=== PATIENT | male | born 1960 | race Caucasian/White ===

== ENCOUNTER → 2019-09-08 11:00 | Outpatient (BNVA) | payer MEDICAID, SELFPAY | PROVIDERS: Visit Provider Nurse Practitioner | DX: F25.1 Schizoaffective disorder, depressive type (principal); F41.1 Generalized anxiety disorder; F17.210 Nicotine dependence, cigarettes, uncomplicated | CPT/HCPCS: 99213 ==

== ENCOUNTER → 2019-12-01 08:20 | Outpatient (BNVA) | payer MEDICAID, SELFPAY | PROVIDERS: Family Provider Nurse Practitioner; PCP Nurse Practitioner Family; Visit Provider Nurse Practitioner | DX: F41.1 Generalized anxiety disorder (principal); F25.1 Schizoaffective disorder, depressive type; F17.210 Nicotine dependence, cigarettes, uncomplicated | CPT/HCPCS: 99213 ==

== ENCOUNTER → 2020-03-07 07:38 | Outpatient (BNVA) | payer MEDICAID, SELFPAY | PROVIDERS: Family Provider Nurse Practitioner; PCP Nurse Practitioner Family; Visit Provider Nurse Practitioner | DX: F41.1 Generalized anxiety disorder (principal); F25.1 Schizoaffective disorder, depressive type; F17.210 Nicotine dependence, cigarettes, uncomplicated | CPT/HCPCS: 99214 ==

== ENCOUNTER → 2020-06-01 07:27 | Outpatient (BNVA) | payer MEDICAID, SELFPAY | PROVIDERS: Family Provider Nurse Practitioner; PCP Nurse Practitioner Family; Visit Provider Nurse Practitioner | DX: F41.1 Generalized anxiety disorder (principal); F25.1 Schizoaffective disorder, depressive type; F17.210 Nicotine dependence, cigarettes, uncomplicated | CPT/HCPCS: 99214 ==

== ENCOUNTER → 2020-08-17 07:29 | Outpatient (BNVA) | payer MEDICAID, SELFPAY | PROVIDERS: Family Provider Nurse Practitioner; PCP Nurse Practitioner Family; Visit Provider Nurse Practitioner | DX: F41.1 Generalized anxiety disorder (principal); F25.1 Schizoaffective disorder, depressive type; F17.210 Nicotine dependence, cigarettes, uncomplicated | CPT/HCPCS: 99213 ==

== ENCOUNTER → 2020-11-11 07:33 | Outpatient (BNVA) | payer MEDICAID, SELFPAY | PROVIDERS: Family Provider Nurse Practitioner; PCP Nurse Practitioner Family; Visit Provider Nurse Practitioner | DX: F41.1 Generalized anxiety disorder (principal); F25.1 Schizoaffective disorder, depressive type; F17.210 Nicotine dependence, cigarettes, uncomplicated | CPT/HCPCS: 99214 ==

== ENCOUNTER → 2021-01-06 10:33 | Outpatient (BNVA) | payer MEDICAID, SELFPAY | PROVIDERS: Family Provider Nurse Practitioner; PCP Nurse Practitioner Family; Visit Provider Nurse Practitioner Family | DX: R63.4 Abnormal weight loss (principal); Z79.899 Other long term (current) drug therapy; E55.9 Vitamin D deficiency, unspecified; Z12.5 Encounter for screening for malignant neoplasm of prostate; I10 Essential (primary) hypertension; Z13.6 Encounter for screening for cardiovascular disorders; J44.9 Chronic obstructive pulmonary disease, unspecified | CPT/HCPCS: 71046; 80053; 80061; 82306; 83036; 83615; 84443; 85025; 85651; 86140; G0103 ==

== ENCOUNTER → 2021-01-12 14:53 | Outpatient (BNVA) | payer MEDICAID, SELFPAY | PROVIDERS: Family Provider Nurse Practitioner; PCP Nurse Practitioner Family; Visit Provider Nurse Practitioner Family | DX: R63.4 Abnormal weight loss (principal) | CPT/HCPCS: 82270 ==

== ENCOUNTER 2021-01-17 15:49 | Outpatient (CLI) | payer MEDICAID, SELFPAY | END 2021-01-17 15:50 | disposition home or self-care (01) | LOC: RADWPI 12-27 08:29 | PROVIDERS: PCP Nurse Practitioner; Visit Provider Family Medicine | DX: J44.9 Chronic obstructive pulmonary disease, unspecified (principal); Z20.822 Contact with and (suspected) exposure to COVID-19 | CPT/HCPCS: 87635 ==

== ENCOUNTER 2021-01-23 13:00 | Outpatient (CLI) | payer MEDICAID, SELFPAY ==
--- NOTE | 2021-01-23 13:10 | XR_ITS ---
WS: [id number] DEXA (DUAL ENERGY X-RAY ABSORPTIOMETRY) Bone mineral density was performed using a [employer] machine. HISTORY: S72.009A - Fracture of unspecified part of neck of the hip. COMPARISON: None available. Lumbar spine BMD (L1-L4): 0.8 T score: -3.3 Z score: -1.8 Total hip BMD: Left: 0.561. T score: -3.7 Z score: -2.6 Right: 0.489. T score: -4.3 Z score: -3.1 10 year probability of a major osteoporotic fracture is 44%. XR/XR DEXA axial skeleton* 20791 IMPRESSION: OSTEOPOROSIS. Patient at significant risk for fracture.
--- NOTE | 2021-01-23 14:00 | CT_ITS ---
WS: [id number] CT CHEST WITHOUT INTRAVENOUS CONTRAST HISTORY: R63.4 - Abnormal weight loss TECHNIQUE: Contiguous 5 mm axial imaging performed on the thorax. Coronal and sagittal reformats are submitted. All CT scans at [facility] use at least one of these dose optimization techniq ues: automated exposure control; mA and/or kV adjustment per patient size (includes targeted exams wh ere dose is matched to clinical indication); or iterative reconstruction. CONTRAST: None DLP: 426.76 mGycm COMPARISON: 08/23/2017 Lungs and central airway: Marked pulmonary hyperexpansion with changes of emphysema. Interval LEFT vo lume loss in shift of the mediastinal structures to the LEFT. Curvilinear area of increased density. Rounded atelectasis is noted involving a portion of the LEFT lower lobe. There is additional area of atelectasis and pleural thickening at the lingula. Small amount of increased density along the depend ent portions of the proximal mainstem bronchi is probably related to secretions. Similar findings as compared to the prior study. Pleura: Normal. No pleural effusion. Heart and pericardium: Normal size heart with no pericardial effusion. Mediastinum and shailesh: No adenopathy identified on this unenhanced study. There are some small benign- appearing lymph nodes in the anterior mediastinal fat which were similar to the prior study. Vessels: Normal size aortic and pulmonary artery. No coronary artery calcifications. Chest wall and lower neck: No soft tissue masses. Upper abdomen: LEFT kidney is not identified. May be surgically removed or congenital. Osseous structures: Very slight anterior wedging of T3. No change. CT/CT chest wo con [id number] IMPRESSION: 1. Severe chronic emphysema. 2. Volume loss in the LEFT thorax with rounded atelectasis in the LEFT lower l obe and subsegmental atelectasis at the lingula. 3. Endobronchial secretions in the proximal mainstem bronchi. 4. Absent LEFT kidney.
--- NOTE | 2021-01-23 14:40 | PFTS_ITS ---
Date of Study:01/23/21 Date of Dictation: 01/31/21 MECHANICS: Post bronchodilator Forced vital capacity (FVC) is reduced 43% . Post bronchodilator Forced expiratory volume in one second (FEV1) is very severely reduced 26% . FEV1/FVC is reduced. There is significant response to bronchodilators . FLOW VOLUME LOOP: severe sloping of expiratory limb suggestive of severe airway obstruction LUNG VOLUMES: Not measured DIFFUSING CAPACITY FOR CARBON MONOXIDE: Not measured . INTERPRETATION: The Spirometry consistent with severe obstructive ventilatory defect with significant bronchodialator response. Clinical correlation recommended. MTDD
== END 2021-01-23 13:01 | disposition home or self-care (01) ==
PROVIDERS: PCP Nurse Practitioner Family; Visit Provider Family Medicine
DX: R63.4 Abnormal weight loss (principal); J44.9 Chronic obstructive pulmonary disease, unspecified; S72.009A Fracture of unspecified part of neck of unspecified femur, initial encounter for closed fracture; Z90.5 Acquired absence of kidney; M81.0 Age-related osteoporosis without current pathological fracture
CPT/HCPCS: 71250; 77080; 94060

== ENCOUNTER → 2021-01-27 07:27 | Outpatient (BNVA) | payer MEDICAID, SELFPAY | PROVIDERS: PCP Nurse Practitioner Family; Visit Provider Nurse Practitioner | DX: F41.1 Generalized anxiety disorder (principal); F25.1 Schizoaffective disorder, depressive type; F17.210 Nicotine dependence, cigarettes, uncomplicated | CPT/HCPCS: 99214 ==

== ENCOUNTER → 2021-02-03 15:32 | Outpatient (BNVA) | payer MEDICAID, SELFPAY | PROVIDERS: PCP Nurse Practitioner Family; Visit Provider Internal Medicine Pulmonary Disease | DX: Z20.822 Contact with and (suspected) exposure to COVID-19 (principal) | CPT/HCPCS: 87635 ==

== ENCOUNTER 2021-02-08 14:01 | Outpatient (CLI) | payer MEDICAID, SELFPAY ==
--- NOTE | 2021-02-08 14:48 | PFTS_ITS ---
Date of Study:02/08/21 Date of Dictation: MECHANICS: Forced vital capacity (FVC) is reduced. Forced expiratory volume in one second (FEV1) is reduced. FEV1/FVC is reduced. FLOW VOLUME LOOP: Reduced flow at all lung volumes with significant scooping. LUNG VOLUMES: Total lung capacity (TLC) is increased. Residual volume (RV) is increased. DIFFUSING CAPACITY FOR CARBON MONOXIDE: Moderately reduced. INTERPRETATION: The pulmonary function tests are consistent with severe airflow obstruction. There is a significant postbronchodilator response. Lung volumes are consistent with hyperinflation and air trapping. Gas exchange (DLCO) is moderately reduced. MTDD
== END 2021-02-08 14:02 | disposition home or self-care (01) ==
LOC: RT 14:03
PROVIDERS: PCP Family Medicine; Visit Provider Internal Medicine Pulmonary Disease
DX: J44.9 Chronic obstructive pulmonary disease, unspecified (principal)
CPT/HCPCS: 94060; 94618; 94726; 94729

== ENCOUNTER → 2021-04-21 09:35 | Outpatient (BNVA) | payer MEDICAID, SELFPAY | PROVIDERS: PCP Nurse Practitioner Family; Visit Provider Nurse Practitioner | DX: F41.1 Generalized anxiety disorder (principal); F25.1 Schizoaffective disorder, depressive type; F17.210 Nicotine dependence, cigarettes, uncomplicated | CPT/HCPCS: 99214 ==

== ENCOUNTER 2021-06-07 10:00 | Outpatient (CLI) | payer MEDICAID, SELFPAY ==
--- NOTE | 2021-06-07 10:00 | XR_ITS ---
NOTE: Report was unsigned for reason: Order was edited. Original Signature date and time was: 06/07/21 @ 1039 WS: [id number] BILATERAL HIPs: 2 VIEW(S) TECHNIQUE: AP and lateral. HISTORY: M54.9 - Dorsalgia, unspecified COMPARISON: 05/18/2013 Mild bilateral hip joint arthritis. Mild diffuse osteopenia. No fractures or dislocation. Irregularity involving the surfaces of the femoral heads from arthritis and loss of cartilage. SI joints are mildly narrowed. No erosions. [facility] XR/XR hip BI 2V wo/w pel [id number] IMPRESSION: 1. Mild bilateral hip joint arthritis. 2. Osteopenia. 3. No fracture.
--- NOTE | 2021-06-07 10:00 | XR_ITS ---
WS: [id number] Exam: XR sacrum coccyx min 2V [id number] Date/Time of Exam: 06/07/2021 10:00 AM Reason For Exam: M54.9 - Dorsalgia, unspecified No fracture or dislocation identified. There is partial fusion of the bilateral SI joints. The coccyx is intact. XR/XR sacrum coccyx min 2V [id number] IMPRESSION: 1. No fracture or bone destruction. 2. Partial fusion of the bilateral SI joints with degenerative change
--- NOTE | 2021-06-07 10:30 | XR_ITS ---
WS: [id number] Exam: XR lumbar spine 2-3V* [id number] Date/Time of Exam: 06/07/2021 10:30 AM Reason For Exam: M54.9 - Dorsalgia, unspecified No acute fracture or dislocation. Degenerative vacuum disc at L5-S1. There is spondylosis. Degenerati ve narrowing of the L1-2 and L2-3 discs. Facet DJD at all levels. Minimal levoscoliosis. Partial fusi on of the SI joints. There is straightening of the lumbar spine. XR/XR lumbar spine 2-3V* [id number] IMPRESSION: 1. Moderate degenerative changes. No fracture or malalignment. 2. Straightening and slight scoliosis.
== END 2021-06-07 10:01 | disposition home or self-care (01) ==
PROVIDERS: PCP Nurse Practitioner Family; Visit Provider Family Medicine
DX: M54.50 Low back pain, unspecified (principal); M13.852 Other specified arthritis, left hip; M13.851 Other specified arthritis, right hip; M85.88 Other specified disorders of bone density and structure, other site
CPT/HCPCS: 72100; 72220; 73521; 73522

== ENCOUNTER → 2021-07-20 08:18 | Outpatient (BNVA) | payer MEDICAID, SELFPAY | PROVIDERS: PCP Nurse Practitioner Family; Visit Provider Nurse Practitioner | DX: F41.1 Generalized anxiety disorder (principal); F25.1 Schizoaffective disorder, depressive type; F17.210 Nicotine dependence, cigarettes, uncomplicated | CPT/HCPCS: 99214 ==

== ENCOUNTER → 2021-10-17 07:34 | Outpatient (BNVA) | payer MEDICAID, SELFPAY | PROVIDERS: PCP Nurse Practitioner Family; Visit Provider Nurse Practitioner | DX: F41.1 Generalized anxiety disorder (principal); F17.210 Nicotine dependence, cigarettes, uncomplicated | CPT/HCPCS: 99214 ==

== ENCOUNTER → 2022-01-17 09:44 | Outpatient (BNVA) | payer MEDICAID, SELFPAY | PROVIDERS: PCP Nurse Practitioner; Visit Provider Nurse Practitioner | DX: F41.1 Generalized anxiety disorder (principal); F17.210 Nicotine dependence, cigarettes, uncomplicated; Z79.899 Other long term (current) drug therapy | CPT/HCPCS: 80061; 83036; 99214 ==

== ENCOUNTER → 2022-12-11 12:15 | Outpatient (BNVA) | payer OTHER, SELFPAY | PROVIDERS: PCP Nurse Practitioner; Visit Provider Nurse Practitioner | DX: F41.1 Generalized anxiety disorder (principal); F25.1 Schizoaffective disorder, depressive type; Z79.899 Other long term (current) drug therapy | CPT/HCPCS: 80061; 83036 ==

== ENCOUNTER → 2023-01-10 10:46 | Outpatient (BNVA) | payer MEDICAID, SELFPAY | PROVIDERS: PCP Nurse Practitioner; Visit Provider Family Medicine | DX: J44.1 Chronic obstructive pulmonary disease with (acute) exacerbation (principal); R53.81 Other malaise; R29.898 Other symptoms and signs involving the musculoskeletal system; R64 Cachexia; E46 Unspecified protein-calorie malnutrition; R91.8 Other nonspecific abnormal finding of lung field; Z71.6 Tobacco abuse counseling; J44.9 Chronic obstructive pulmonary disease, unspecified | CPT/HCPCS: 71046 ==

== ENCOUNTER 2023-01-11 12:52 | Outpatient (CLI) | payer MEDICAID, SELFPAY ==
--- NOTE | 2023-01-11 15:00 | CTR_ITS ---
PROCEDURE INFORMATION: Exam: CT Chest Without Contrast; Diagnostic Exam date and time: 01/11/2023 1:04 PM Age: 62 years old Clinical indication: Abnormal findings; Abnormal radiologic exam of lung or chest; Additional info: R29.898 - other symptoms and signs involving the musculos. . . TECHNIQUE: Imaging protocol: Diagnostic computed tomography of the chest without contrast. Radiation optimization: All CT scans at this facility use at least one of these dose optimization techniques: automated exposure control; mA and/or kV adjustment per patient size (includes targeted exams where dose is matched to clinical indication); or iterative reconstruction. REPORTING DATA: Count of CT and Cardiac NM exams in prior 12 months: This patient has received 0 known CTs and 0 known cardiac nuclear medicine studies in the 12 months prior to the current study. COMPARISON: CT chest wo con [id number] 01/23/2021 1:43 PM RADIATION DOSE METRICS: Total DLP (mGy-cm): 182.47 FINDINGS: Lungs: There are diffuse emphysematous changes both lung levin relatively stable. There is some volume loss of the left hemithorax with scattered areas of chronic subpleural subsegmental atelectasis, scarring and mild bronchiectasis unchanged. There is some areas of smooth pleural thickening left hemithorax that are also stable. Changes are likely postinflammatory in nature. There are minor atelectatic changes right middle lobe, stable. Pleural spaces: Right pleural cavities unremarkable. No pneumothorax. No significant pleural effusions. Heart: Heart is not significantly enlarged. No significant coronary artery calcifications. No significant pericardial effusion. Lymph nodes: Unremarkable. No enlarged lymph nodes. Vasculature: Unremarkable. No aortic aneurysm. Kidneys and ureters: Left kidney is absent and presumably previously removed. Bones/joints: There is mild compression fracture involving T12 vertebral bowel leak with scalloping of the inferior endplate and mild retropulsion that has developed from earlier study. Findings appear to imparting at least mild stenosis of the central canal. Soft tissues: See Lungs finding. CT/CT chest wo con [id number] IMPRESSION: 1. COPD with diffuse emphysematous changes, stable. 2. Mild volume loss left hemithorax with chronic changes left lung and left pleural cavity stable from previous exam as discussed above. 3. Interval development of compression fracture T12 vertebral body. 4. Absent left kidney. COMMENTS: In the absence of a history or active diagnosis of lung cancer, it is recommended that this patient with emphysema be evaluated for enrollment in a low dose CT lung cancer screening program.
== END 2023-01-11 12:53 | disposition home or self-care (01) ==
LOC: RAD 12:53
PROVIDERS: PCP Nurse Practitioner; Visit Provider Family Medicine
DX: R29.898 Other symptoms and signs involving the musculoskeletal system (principal); R64 Cachexia; E46 Unspecified protein-calorie malnutrition; J43.9 Emphysema, unspecified; M48.54XA Collapsed vertebra, not elsewhere classified, thoracic region, initial encounter for fracture; Z90.5 Acquired absence of kidney
CPT/HCPCS: 71250

== ENCOUNTER 2023-03-14 21:14 | Inpatient (IN) | payer MEDICAID, SELFPAY ==
[2023-03-14 21:24] VITALS: BP 101/67; PULSE 94; RESP 17; TEMP 36.8; O2SAT 98
--- NOTE | 2023-03-14 22:03 | P.HP_ITS ---
Providers/Chief Complaint Admitting Physician: Gagandeep Trent Primary Care Provider: Shelly Elizabeth APN Chief Complaint: pneumonia, copd History of Present Illness Akira Goss Jr is a 62 year old male with a past medical history significant for COPD with chronic hypoxic respiratory failure on 3 to 4 L baseline, generalized anxiety disorder, nicotine use, coronary artery disease, osteoarthritis, hypertension, and schizoaffective disorder transferred from the outside hospital after presenting with respiratory distress. Upon evaluation, patient is slightly lethargic. His spouse is bedside and provides much of the history. She states that he was in his usual state of health until this morning when she found him to be in severe respiratory distress. Patient endorses shortness of breath, cough, chills, malaise. Denies chest pain or abdominal pains. At the outside facility, patient was found to be in respiratory distress with hypercapnia requiring BiPAP. Spouse reports patient's not require home BiPAP or CPAP before. Imaging showed persistent left lower lobe infiltrate. He was treated with ceftriaxone, azithromycin, breathing treatments, and IV steroids. He was found to have urinary retention for which Morgan catheter was placed. Review of Systems Narrative: A complete review of systems was obtained and is negative except as stated in HPI. Medications/Allergies Home Medications Medication Instructions Recorded Confirmed Last Taken Type spironolactone 25 mg tablet 25 mg PO DAILY 02/01/22 03/15/23 Unknown History thiamine HCl (vitamin B1) 100 mg 100 mg PO DAILY 02/01/22 03/15/23 Unknown History tablet aspirin 81 mg tablet,delayed 81 mg PO DAILY #90 tabs 02/22/22 03/15/23 Unknown Rx release atorvastatin 80 mg tablet 80 mg PO DAILY #90 tabs 02/22/22 03/15/23 Unknown Rx gabapentin 100 mg capsule 300 mg PO BID for nerve problem 10/09/22 03/15/23 Unk nown History folic acid 1 mg tablet See Rx Instructions .Route 10/15/22 03/15/23 Unknown Rx .COMPLEX #90 tabs budesonide 160 mcg-glycopyr 9 See Rx Instructions .Route 12/11/22 03/15/23 Unkno wn Rx mcg-formot 4.8 mcg/actuation HFA .COMPLEX #10.7 grams inhaler (Breztri Aerosphere) carvedilol 3.125 mg tablet See Rx Instructions .Route 12/11/22 03/15/23 Unknown Rx .COMPLEX #90 tabs wheelchair #1 ea 01/10/23 03/12/23 Unknown Rx ipratropium 20 mcg-albuterol 100 See Rx Instructions .Route 02/15/23 03/15/23 Unknown Rx mcg/actuation mist for inhalation .COMPLEX #4 grams (Combivent Respimat) citalopram 40 mg tablet (Celexa) 40 mg PO DAILY #30 tabs 03/07/23 03/15/23 Unknown Rx olanzapine 10 mg tablet (Zyprexa) 10 mg PO QDAY #30 tabs 03/07/23 03/15/23 Unk nown Rx doxycycline hyclate 100 mg tablet 100 mg PO BID 5 days #10 tabs 03/12/23 03/15/23 Unknown Rx megestrol 400 mg/10 mL (10 mL) 100 mg (2.5 mL) PO DAILY 30 days 03/12/23 03/12/23 Unknown Rx oral suspension #500 mL prednisone 10 mg tablet See Rx Instructions PO DAILY #53 03/12/23 03/15/23 Unknown Rx tabs Entresto 03/15/23 Unknown History albuterol sulfate 90 mcg/actuation 90 mcg inhalation 03/15/23 03/15/23 Unknown History aerosol inhaler alendronate 70 mg tablet 70 mg PO DIRECTED 03/15/23 03/15/23 Unknown History cholecalciferol (vitamin D3) 125 mcg PO 03/15/23 03/15/23 Unknown History furosemide 40 mg tablet (Lasix) 40 mg PO 03/15/23 Unknown History multivitamin tab PO 03/15/23 Unknown History sacubitril 24 mg-valsartan 26 mg 1 tab PO BID 03/15/23 03/15/23 Unknown History tablet (Entresto) Allergies Allergy/AdvReac Type Severity Reaction Status Date / Time No Known Allergies Allergy Verified 03/12/23 14:41 PFSH Acute PFSH: Medical History Bilateral primary osteoarthritis of hip Cachexia CAD (coronary artery disease) Chronic obstructive pulmonary disease Chronic SI joint pain Essential hypertension Generalized anxiety disorder Hip fracture History of fracture of left hip Hypertension screen Lumbar radiculopathy, chronic Medication management Nicotine dependence, cigarettes, uncomplicated On combination antipsychotic drug therapy Osteoporosis Prostate cancer screening Psychiatric care Schizoaffective disorder, depressive type Unintentional weight loss Vitamin D deficiency Weight loss Social History Smoking and tobacco status: former smoker Quit status (tobacco): not considering quitting Second hand smoke exposure: Yes Smoking risk assessment/counseling performed?: Yes Tobacco counseling given: counseling >3 minutes Alcohol intake: current Alcohol intake frequency: 3 or more drinks per day Desire information about alcohol rehabilitation?: No Substance/Drug Use: never Lives independently: Yes Household members: spouse Marital status: service: No Current occupational status: disabled Pets and animals: Yes Do you think of yourself as: Straight/Heterosexual Current gender identity: Male Physical Exam Narrative: General: Patient is lethargic but awakes to verbal stimulation. Frail and cachectic appearing. Head: Temporal wasting. EOM intact. Neck: No JVD. Cardiovascular: RRR. No gallops. No murmurs. Lungs: Rhonchi in left lower lung base, increased work of breathing, Accessory muscle use when speaking. Moderate respiratory distress. Skin: No rashes. Abdomen: Normal bowel sounds, abdomen soft and nontender. Genito Urinary: Morgan catheter is present. Rectal: Rectal exam not performed since no symptoms indicated blood loss. Extremities: No cyanosis or clubbing. Musculoskeletal: No swollen or erythematous joints. Neurological: Moves all 4 extremities. No myoclonus. Data 03/14/23 22:55 03/14/23 22:55 A&P Assessment and plan (1) Left lower lobe pulmonary infiltrate: Pro-Lauri and CRP Start ceftriaxone Start azithromycin Pulmonary toilet Consider ST consult (2) COPD exacerbation: With chronic hypoxic respiratory failure With acute hypercapnic respiratory failure requiring noninvasive mechanical ventilation ABG Chest x-ray Start IV steroids Breathing treatments (3) Urinary retention: Morgan placed at the outside hospital Plan to start Flomax pending blood pressure Will need voiding trial eventually (4) Schizoaffective disorder, depressive type: Continue home olanzapine (5) Essential hypertension: Continue home Coreg (6) CAD (coronary artery disease): Continue home statin Continue home aspirin Of note, patient is note the best historian on medications, he appears to be on other cardiac meds such as Entresto and Aldactone but is unsure, will need to better confirm home medications if possible Plan DVT prophylaxis: Lovenox CODE STATUS: DNR?discussed with patient and spouse Attestations Medical Necessity Statement*: Patient with multiple comorbidities with high risk for morbidity mortality with expected hospitalization to cross 2 midnights. Coding Level of Care Code Acute Code for Chg Fwd Diagnoses Left lower lobe pulmonary infiltrate R91.8 COPD exacerbation J44.1 Urinary retention R33.9 Schizoaffective disorder, depressive type F25.1 Essential hypertension I10 CAD (coronary artery disease) I25.10
--- NOTE | 2023-03-14 22:07 | XRR_ITS ---
PROCEDURE INFORMATION: Exam: XR Chest Exam date and time: 03/14/2023 10:43 PM Age: 62 years old Clinical indication: Dyspnea; Additional info: Evaluate for pneumonia TECHNIQUE: Imaging protocol: Radiologic exam of the chest. Views: 1 view. COMPARISON: CT chest con [id number] 01/11/2023 1:04 PM FINDINGS: Lungs: Strandy opacities persist in the left mid and lower hemithorax compatible with chronic parenchymal and pleural scarring. Superimposed pneumonia in the left mid lower hemithorax cannot be entirely excluded. There is a background of emphysema. Pleural spaces: See Lungs finding. Heart/Mediastinum: Unremarkable. No cardiomegaly. Bones/joints: Unremarkable. XR/XR chest 1V portable [id number] IMPRESSION: 1. There is a background of emphysema. 2. There are stable strandy opacities and pleural thickening seen in the left mid and lower hemithorax compatible with pleural and parenchymal scarring. A superimposed left lower lobe infiltrate and pneumonia cannot be entirely excluded in the appropriate clinical setting.
--- NOTE | 2023-03-14 22:07 | ECG_ITS ---
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 Measurements Intervals [address] Rate: 75 P: 85 SC: 159 QRS: 86 QRSD: 81 T: 81 QT: 409 QTc: 457 Interpretive Statements SINUS RHYTHM No previous ECG available for comparison Electronically Signed On 03-15-2023 13:41:15 CDT by Zulma Preston M.D. [id number]
[2023-03-14 22:26] VITALS: BMI 16.2
[2023-03-14 23:19] LABS: Basophils % 0.1 %; Hemoglobin 12.2 g/dL (11.7-16.6); Lymphocytes # 0.4 10^3/uL (0.8-4.8); Lymphocytes % 2.1 %; Mean Corpuscular Hemoglobin 31.6 pg (28.0-34.0); Mean Corpuscular Volume 95.9 fl (80-94); Mean Platelet Volume 8.8 fL (7.4-10.4); Monocytes # 0.8 10^3/uL (0.2-0.9); Monocytes % 4.2 %; Neutrophils # 17.39 10^3/uL (1.8-7.7); Neutrophils % 93.1 %; Nucleated Red Blood Cells % 0 %; Platelet Count 337 10^3/cmm (130-400); Red Blood Count 3.86 10^6/uL (4.1-5.3); Red Cell Distribution Width 12.3 % (12.1-15.1); White Blood Count 18.7 10^3/uL (4.0-10.0)
[2023-03-14 23:46] VITALS: BP 95/62; PULSE 74; RESP 16; TEMP 36.5; O2SAT 99
[2023-03-14 23:47] LABS: NT Pro B Type Natriuretic Pept 238 pg/mL (0-125); Procalcitonin 0.37 ng/mL (0-0.5)
[2023-03-14 23:58] LABS: Alanine Aminotransferase 12 U/L (0-41); Albumin Level 3.7 g/dL (3.5-5.2); Alkaline Phosphatase 61 U/L (40-130); Anion Gap 11.9 (5-19); Aspartate Amino Transferase 14 U/L (0-40); Blood Urea Nitrogen 10 mg/dL (8-23); C Reactive Protein 9.6 mg/L (0.0-4.9); Calcium 8.4 mg/dL (8.5-10.5); Carbon Dioxide 35 mmol/L (22-29); Chloride 94 mmol/L (98-107); Globulin 1.9 g/dL (1.3-4.6); Glomerular Filtration Rate 216.6 mL/min (90-130); Glucose 130 mg/dL (65-115); Osmolality Calculated 283 mOsm/kg (285-295); Phosphorus 4.5 mg/dL (2.5-4.5); Potassium 4.9 mmol/L (3.5-5.1); Sodium 136 mmol/L (136-145); Total Bilirubin 0.3 mg/dL (0.15-1.2); Total Protein 5.6 g/dL (6.6-8.7)
[2023-03-15] VITALS (15 sets, daily range): BP systolic 93–129; BP diastolic 55–68; PULSE 59–86; RESP 15–25; TEMP 36.3–37.1; O2SAT 92–99
[2023-03-15 00:07] LABS: ABG PH Result 7.36 (7.35-7.45); Arterial Blood Gas Hematocrit 38.4 % (42-52); Base Excess ABG 9.5 mmol/L (-2.0-2.0); Blood Gas Allen Test Pos; Blood Gas Operator Identificat WALCI; Blood Gas Sample Site Radial, left; Blood Gas Sample Type Arterial; HCO3 ABG 37.2 mmol/L (22-26); Oxygen Device OXY MASK
[2023-03-15 00:08] LABS: ABG PCO2 65.4 mmHg (35-45)
[2023-03-15] MEDS: ipratropium-albuterol 3 mL Neb INHALATION ×6 (00:32→20:38)
[2023-03-15] MEDS: azithromycin 500 MG in sodium chloride 0.9% 250 ML 250 MG IV (02:32)
[2023-03-15] MEDS: methylPREDNISolone sod succ 40 MG in water for injection-sterile 1 ML 12 MG IVP ×2 (02:36→10:56)
[2023-03-15 04:21] LABS: Urine Appearance SL Hazy (CLEAR); Urine Color Yellow (Yellow)
[2023-03-15 04:22] LABS: Add Urine Microscopic? YES; Bilirubin Urine Neg (Negative); Blood Urine 2+ (Negative); Glucose Urine UA Norm (Normal); Ketones Urine Negative (Negative); Leukocyte Esterase Urine Negative (Negative); Nitrate Urine Negative (Negative); Protein Urine Neg (Negative); Specific Gravity, Urine 1.005 (1.005-1.030); Urobilinogen Urine Norm (Negative); pH Urine 7 (5-7)
[2023-03-15 04:23] LABS: Add Urine Culture? No; Bacteria Urine TRACE /hpf; Squamous Epithelial Cell Urine 0-4 /hpf (0-5)
[2023-03-15] MEDS: budesonide 0.5 mg/2 mL Neb INHALATION ×2 (07:29→20:38)
[2023-03-15] MEDS: cefTRIAXone 1,000 MG in sodium chloride 0.9% (plus) 50 ML 100 MG IV (08:12)
[2023-03-15] MEDS: gabapentin 100 mg Capsule 300 MG PO ×2 (08:13→17:45)
[2023-03-15] MEDS: citalopram 20 mg Tablet 40 MG PO (08:13)
[2023-03-15] MEDS: aspirin 81 mg EC Tablet PO (08:14)
[2023-03-15] MEDS: OLANZapine 10 mg TABLET PO (08:14)
[2023-03-15] MEDS: thiamine 100 mg Tablet PO (08:14)
[2023-03-15] MEDS: carvedilol 3.125 mg Tablet PO ×2 (08:14→20:37)
[2023-03-15] MEDS: folic acid 1 mg Tablet PO (08:14)
--- NOTE | 2023-03-15 11:22 | PM.PN ---
Subjective Subjective: Patient is endorsing unintentional weight loss Cachexia and malnourishment Uses 3 to 4 L of oxygen at baseline Quit smoking 6 days ago I frankly discussed with the patient and his that my concern is related to underlying malignancy for which I will request CT chest abdomen pelvis H&P reviewed, Labs reviewed, showing leukocytosis, normal procalcitonin, mild hematuria Chest x-ray self interpretation: Left lower lobe infiltrate Vitals/I&O/Wt Last Vital Signs Temp 98.8 F 03/15/23 03:49 Pulse 78 03/15/23 07:29 Resp 22 H 03/15/23 07:29 BP 123/68 03/15/23 08:00 Pulse Ox 93 03/15/23 07:29 O2 Del Method Nasal Cannula 03/15/23 07:29 O2 Flow Rate 3 03/15/23 07:29 FiO2 30 03/15/23 03:51 03/14/23 03/15/23 03/15/23 22:59 06:59 14:59 Intake Total 251 / 251 51 / 51 Output Total 200 / 200 225 / 425 Balance -200 / -200 26 / -174 51 / 51 Weight last 48 hrs Weight 49.555 kg Weight 45.813 kg Physical Exam Narrative: Patient is awake and alert Currently on 3 L Cachectic and malnourished at the bedside Lower extremity no swelling No digital clubbing Unkept appearance Diminished airflow Tachypneic S1, S2 GCS 15 Nonfocal neuro exam Data 03/14/23 22:55 03/14/23 22:55 Micro: Microbiology 03/14/23 22:55 Blood Culture - Preliminary Blood SPECIMEN COLLECTED 03/14/23 22:50 Blood Culture - Preliminary Blood SPECIMEN COLLECTED A&P Assessment and plan (1) Urinary retention: (2) Left lower lobe pulmonary infiltrate: (3) Physical deconditioning: (4) Protein calorie malnutrition: (5) Severe muscle deconditioning: (6) Back pain: (7) Vitamin D deficiency: (8) Unintentional weight loss: (9) Chronic obstructive pulmonary disease: (10) Schizoaffective disorder, depressive type: Plan Left lower lobe pneumonia No signs of sepsis Patient is afebrile Significant leukocytosis Chest x-ray consistent with left lower lobe infiltrate Currently on ceftriaxone and azithromycin, I will change azithromycin dose to p.o. regimen instead of IV Will not add steroids for pneumonia procalcitonin is not high, no active wheezing at the time my evaluation Cachectic malnourishment unintentional weight loss Rule out malignancy Patient quit smoking 6 days ago Will require CT chest abdomen pelvis Chronic hypoxia uses 3 to 4 L at baseline currently on 3 L History of coronary disease no acute exacerbation: Patient at home takes Entresto however I do not have echo report know his EF PCP is not reveals that he was admitted at [facility] patient went for angiogram and his heart was apparently okay Will request records from [facility] History of severe COPD evident on pulmonary function test COPD patient requiring oxygen at baseline, uses albuterol and Combivent at home: End-stage COPD? Cachectic, malnourished and extremely deconditioned, has seen Dr. Johnson in the past Patient has been declining since last year as per the records Lives with his Schizoaffective disorder: Continue Zyprexa We will consult dietitian, continue thiamine and folic acid Back pain with osteopenia DEXA scan showed osteopenia of lumbar spine with osteoporosis of bilateral hips Patient is DNR/DNI goals of care re- discussed Low-carb cardiac diet PCP: Dr. Nikita Welch Medical Necessity Statement*: Continue medical management Diagnoses Urinary retention R33.9 Left lower lobe pulmonary infiltrate R91.8 Physical deconditioning R53.81 Protein calorie malnutrition E46 Severe muscle deconditioning R29.898 Back pain M54.9 Vitamin D deficiency E55.9 Unintentional weight loss R63.4 Chronic obstructive pulmonary disease J44.9 Schizoaffective disorder, depressive type F25.1
--- NOTE | 2023-03-15 11:23 | CT_ITS ---
WS: [id number] CT CHEST, ABDOMEN AND PELVIS WITH CONTRAST HISTORY: Cachexia malnourishment hypoxia TECHNIQUE: Contiguous 5 mm axial imaging performed through the chest, abdomen and pelvis with IV cont rast, oral contrast has not been provided. Coronal and sagittal reformats chest. Coronal and sagittal reformats through the abdomen and pelvis. All CT scans at [facility] use at least one of the se dose optimization techniques: automated exposure control; mA and/or kV adjustment per patient size (includes targeted exams where dose is matched to clinical indication); or iterative reconstruction. CONTRAST: Omnipaque 350; 100 mL IV. DLP: 513.54 mGy.cm COMPARISON: 01/11/[address]: Volume loss throughout the LEFT hemithorax with shift of mediastinal structures to the LEFT . Mild diffuse left-sided pleural thickening. Chronic atelectasis LEFT lower lobe. Fluid and soft tis sara distention bronchi in the LEFT lower lobe at the site of the atelectasis. Similar findings were n oted on the prior examination. No associated mass is identified. Chronic emphysema. Normal size aorta with mild atherosclerosis. Mild pulmonary enlargement. No central filling defects in the pulmonary a rteries. Normal size heart. Mild pericardial thickening. No mediastinal or hilar adenopathy. Minimall y prominent RIGHT hilar indeterminate lymph node at [address]: Normal liver and spleen. No portal vein thrombus. No bile duct dilatation. Negative gallb ladder and adrenal glands. Normal pancreas. Mild atherosclerosis aorta. Normal RIGHT kidney. LEFT kid penny not identified. Stomach is slightly distended with fluid. No small bowel obstruction. Mild fluid distention of the colon. No obstructive pattern or wall thickening. The appendix is not definitely id entified. No ascites or adenopathy. Pelvic CT: Morgan catheter in minimally distended urinary bladder. There is diffuse bladder wall thick ening with air in the urinary bladder. Fat-containing LEFT inguinal canal. No pelvic adenopathy. T12 compression fracture by 30% unchanged since 01/11/2023. CT/CT chest abdpel w/*[id number] IMPRESSION: 1. Chronic volume loss LEFT thorax with partial atelectasis LEFT lower lobe. S imilar findings as compared to 01/11/2023. 2. Moderate chronic emphysema. 3. No pulmonary mass or interval change. 4. Mild pulmonary hypertension. 5. No adenopathy in the abdomen or pelvis. No ascites. 6. Absent LEFT kidney. 7. Mild diffuse bladder wall thickening. May be due to chronic outlet obstruct ion or cystitis. There is a Morgan catheter present.
[2023-03-15] MEDS: iohexol 350 mg/mL 500 mL Btl (per mL) IV (13:20)
[2023-03-15] MEDS: atorvastatin 40 mg Tablet PO (20:37)
[2023-03-16] VITALS (7 sets, daily range): BP systolic 99–110; BP diastolic 50–72; PULSE 69–85; RESP 13–18; TEMP 36.7–36.8; O2SAT 91–97
[2023-03-16] MEDS: ipratropium-albuterol 3 mL Neb INHALATION ×4 (00:51→12:25)
[2023-03-16 04:20] LABS: Basophils % 0.1 %; Eosinophils % 0.2 %; Hematocrit 32.4 % (42.0-52.0); Hemoglobin 10.7 g/dL (11.7-16.6); Lymphocytes # 1.6 10^3/uL (0.8-4.8); Lymphocytes % 14.9 %; Mean Corpuscular Hemoglobin 31.1 pg (28.0-34.0); Mean Corpuscular Volume 94.2 fl (80-94); Mean Platelet Volume 8.9 fL (7.4-10.4); Monocytes # 1.1 10^3/uL (0.2-0.9); Neutrophils # 7.79 10^3/uL (1.8-7.7); Nucleated Red Blood Cells % 0 %; Platelet Count 306 10^3/cmm (130-400); Red Blood Count 3.44 10^6/uL (4.1-5.3); Red Cell Distribution Width 12.2 % (12.1-15.1); White Blood Count 10.5 10^3/uL (4.0-10.0)
[2023-03-16 04:37] LABS: Anion Gap 8.1 (5-19); Blood Urea Nitrogen 6 mg/dL (8-23); Calcium 8.2 mg/dL (8.5-10.5); Carbon Dioxide 35 mmol/L (22-29); Chloride 99 mmol/L (98-107); Glomerular Filtration Rate 301.8 mL/min (90-130); Glucose 93 mg/dL (65-115); Osmolality Calculated 283 mOsm/kg (285-295); Potassium 4.1 mmol/L (3.5-5.1); Sodium 138 mmol/L (136-145)
[2023-03-16] MEDS: budesonide 0.5 mg/2 mL Neb INHALATION (08:28)
[2023-03-16] MEDS: carvedilol 3.125 mg Tablet PO (09:52)
[2023-03-16] MEDS: citalopram 20 mg Tablet 40 MG PO (09:52)
[2023-03-16] MEDS: aspirin 81 mg EC Tablet PO (09:52)
[2023-03-16] MEDS: folic acid 1 mg Tablet PO (09:53)
[2023-03-16] MEDS: gabapentin 100 mg Capsule 300 MG PO (09:53)
[2023-03-16] MEDS: OLANZapine 10 mg TABLET PO (09:53)
[2023-03-16] MEDS: cefTRIAXone 1,000 MG in sodium chloride 0.9% (plus) 50 ML 100 MG IV (09:53)
[2023-03-16] MEDS: thiamine 100 mg Tablet PO (09:53)
[2023-03-16] MEDS: azithromycin 250 mg Tablet 500 MG PO (10:09)
--- NOTE | 2023-03-16 11:15 | P.DS_ITS ---
Discharge Providers Date of Admission: 03/14/23 21:14 Date of Discharge: March 16, 2023 Attending Provider at Admission: Gagandeep Trent Attending Provider at Discharge: Marc Herrera MD Primary Care Provider: Shelly Elizabeth APN Diagnoses at Discharge Discharge Diagnosis (1) Urinary retention: Status: Acute (2) Left lower lobe pulmonary infiltrate: Status: Acute (3) Physical deconditioning: Status: Acute (4) Protein calorie malnutrition: Status: Acute (5) Severe muscle deconditioning: Status: Acute (6) Back pain: Status: Acute (7) Vitamin D deficiency: Status: Acute (8) Unintentional weight loss: Status: Acute (9) Chronic obstructive pulmonary disease: Status: Acute (10) Schizoaffective disorder, depressive type: Status: Acute Reason for Visit Reason for Visit: pneumonia, copd Brief History: History as per HPI: Akira Goss Jr is a 62 year old male with a past medical history significant for COPD with chronic hypoxic respiratory failure on 3 to 4 L baseline, generalized anxiety disorder, nicotine use, coronary artery disease, osteoarthritis, hypertension, and schizoaffective disorder transferred from the outside hospital after presenting with respiratory distress.? Upon evaluation, patient is slightly lethargic.? His spouse is bedside and provides much of the h istory.? She states that he was in his usual state of health until this morning when she found him to be in severe respiratory distress.? Patient endorses shortness of breath, cough, chills, malaise.? Denies chest pain or abdominal pains. As per patient he uses as needed antibiotics and steroids whenever he has difficulty in breathing. As per patient uses high-dose steroids every other week because of difficulty in breathing with last course of steroid and antibiotic within the last 3 to 4 days prior to admission. At the outside facility, patient was found to be in respiratory distress with hypercapnia requiring BiPAP.? Spouse reports patient's not require home BiPAP or CPAP before.? Imaging showed persistent left lower lobe infiltrate.? He was treated with ceftriaxone, azithromycin, breathing treatments, and IV steroids.? He was found to have urinary retention for which Morgan catheter was placed. Hospital Course Hospital Course Patient was admitted to the hospital further evaluation and management of hypercapnic respiratory failure in setting of possible pneumonia, severe baseline COPD and urinary retention. He was started on IV antibiotics, nebulization treatment and IV steroids. Morgan catheter was placed. Patient responded well to the treatment and has been on baseline oxygen supplementation for last 24 to 36 hours. Patient has been discharged in hemodynamically stable condition on oral Augmentin and Levaquin for 5 more days to finish the course of antibiotics. During hospitalization patient was found to have a borderline blood pressure for which his home dose of spironolactone was discontinued. He is asked to continue checking his blood pressures daily and maintain a blood pressure diary and follow-up with a primary care provider within next 10 days for further adjustment of antihypertensives as needed. He is also advised to follow-up with his outpatient cvicu nurse at the earliest given multiple exacerbation of COPD at home. He has been discharged on steroid taper have discussed in detail. Prior to discharge a voiding trial was successfully done and Morgan catheter was removed. Physical Exam Narrative: Patient is awake and alert Currently on 3 L Cachectic and malnourished at the bedside Lower extremity no swelling No digital clubbing Unkept appearance Diminished airflow Tachypneic S1, S2 GCS 15 Nonfocal neuro exam Urinary Catheter Management: Morgan: Cath Placed During This Visit: yes Reason for Continuing Indwelling Catheter: Acute Urinary Retention or Obstru ction Urinary Catheter Date of Insertion: 03/15/23 Discharge Data Studies Completed and Pending Completed Studies During Hospitalization Category Date Time Status CT chest abdomen pelvis [CT chest abdpel w/*[id number] Cat Scan 03/15/23 11:23 Completed ] Routine XR chest 1V portable [id number] Routine Exams 03/14/23 22:07 Completed Pending at discharge Category Date Time Status Blood Culture Routine Lab 03/14/23 22:55 Results Radiology Impressions Chest X-Ray 03/14/23 22:07 IMPRESSION: 1. There is a background of emphysema. 2. There are stable strandy opacities and pleural thickening seen in the left mid and lower hemithorax compatible with pleural and parenchymal scarring. A superimposed left lower lobe infiltrate and pneumonia cannot be entirely excluded in the appropriate clinical setting. Chest/Abdomen/Pelvis CT 03/15/23 11:23 IMPRESSION: 1. Chronic volume loss LEFT thorax with partial atelectasis LEFT lower lobe. Similar findings as compared to 01/11/2023. 2. Moderate chronic emphysema. 3. No pulmonary mass or interval change. 4. Mild pulmonary hypertension. 5. No adenopathy in the abdomen or pelvis. No ascites. 6. Absent LEFT kidney. 7. Mild diffuse bladder wall thickening. May be due to chronic outlet obstruction or cystitis. There is a Morgan catheter present. Microbiology 03/14/23 22:50 Blood Blood Culture - Preliminary NEGATIVE TO DATE 03/14/23 22:55 Blood Blood Culture - Preliminary NEGATIVE TO DATE 03/15/23 17:21 Urine Suprapubic Bacterial Antigens - Final Laboratory Results WBC 10.5 10^3/uL (4.0-10.0) H 03/16/23 03:56 RBC 3.44 10^6/uL (4.1-5.3) L 03/16/23 03:56 Hgb 10.7 g/dL (11.7-16.6) L 03/16/23 03:56 Hct 32.4 % (42.0-52.0) L 03/16/23 03:56 MCV 94.2 fl (80-94) H 03/16/23 03:56 MCH 31.1 pg (28.0-34.0) 03/16/23 03:56 MCHC 33.0 g/dL (30.0-36.0) 03/16/23 03:56 RDW 12.2 % (12.1-15.1) 03/16/23 03:56 Plt Count 306 10^3/cmm (130-400) 03/16/23 03:56 MPV 8.9 fL (7.4-10.4) 03/16/23 03:56 Neut % (Auto) 74.0 % 03/16/23 03:56 Lymph % (Auto) 14.9 % 03/16/23 03:56 [place] % (Auto) 10.0 % 03/16/23 03:56 Eos % (Auto) 0.2 % 03/16/23 03:56 Baso % (Auto) 0.1 % 03/16/23 03:56 Neut # (Auto) 7.79 10^3/uL (1.8-7.7) H 03/16/23 03:56 Lymph # (Auto) 1.6 10^3/uL (0.8-4.8) 03/16/23 03:56 [place] # (Auto) 1.1 10^3/uL (0.2-0.9) H 03/16/23 03:56 Eos # (Auto) 0.0 10^3/uL (0.0-0.8) 03/16/23 03:56 Baso # (Auto) 0.0 10^3/uL (0.0-0.1) 03/16/23 03:56 Nucleated RBC % (auto) 0 % 03/16/23 03:56 Nucleated RBCs # 0.0 /100WBC 03/16/23 03:56 Specimen Type Arterial 03/14/23 00:00 Sample Site Radial, left 03/14/23 00:00 ABG pH 7.36 (7.35-7.45) 03/14/23 00:00 ABG pCO2 65.4 mmHg (35-45) H* 03/14/23 00:00 ABG pO2 127.0 mmHg (80.0-100.0) H 03/14/23 00:00 ABG HCO3 37.2 mmol/L (22-26) H 03/14/23 00:00 ABG Base Excess 9.5 mmol/L (-2.0-2.0) H 03/14/23 00:00 Mariusz Test Pos 03/14/23 00:00 Hematocrit 38.4 % (42-52) L 03/14/23 00:00 O2 Delivery Device Oxy mask 03/14/23 00:00 O2 Liters/Min 5.0 % 03/14/23 00:00 Upset Welding Machine Operator ID Saira 03/14/23 00:00 Sodium 138 mmol/L (136-145) 03/16/23 03:56 Potassium 4.1 mmol/L (3.5-5.1) 03/16/23 03:56 Chloride 99 mmol/L (98-107) 03/16/23 03:56 Carbon Dioxide 35 mmol/L (22-29) H 03/16/23 03:56 Anion Gap 8.1 (5-19) 03/16/23 03:56 BUN 6 mg/dL (8-23) L 03/16/23 03:56 Creatinine 0.3 mg/dL (0.7-1.2) L 03/16/23 03:56 GFR Calculation 301.8 mL/min (90-130) H 03/16/23 03:56 Glucose 93 mg/dL (65-115) 03/16/23 03:56 Calculated Osmolality 283 mOsm/kg (285-295) L 03/16/23 03:56 Calcium 8.2 mg/dL (8.5-10.5) L 03/16/23 03:56 Phosphorus 4.5 mg/dL (2.5-4.5) 03/14/23 22:55 Magnesium 2.0 mg/dL (1.7-2.3) 03/14/23 22:55 Total Bilirubin 0.3 mg/dL (0.15-1.2) 03/14/23 22:55 AST 14 U/L (0-40) 03/14/23 22:55 ALT 12 U/L (0-41) 03/14/23 22:55 Alkaline Phosphatase 61 U/L (40-130) 03/14/23 22:55 C-Reactive Protein 9.6 mg/L (0.0-4.9) H 03/14/23 22:55 NT-Pro-B Natriuret Pep 238 pg/mL (0-125) H 03/14/23 22:55 Total Protein 5.6 g/dL (6.6-8.7) L 03/14/23 22:55 Albumin 3.7 g/dL (3.5-5.2) 03/14/23 22:55 Globulin 1.9 g/dL (1.3-4.6) 03/14/23 22:55 Procalcitonin 0.37 ng/mL (0-0.5) 03/14/23 22:55 Urine Color Yellow (Yellow) 03/15/23 04:02 Urine Appearance Sl hazy (CLEAR) A 03/15/23 04:02 Urine pH 7 (5-7) 03/15/23 04:02 Ur Specific [place] 1.005 (1.005-1.030) 03/15/23 04:02 Urine Protein Neg (Negative) 03/15/23 04:02 Urine Glucose (UA) Norm (Normal) 03/15/23 04:02 Urine Ketones Negative (Negative) 03/15/23 04:02 Urine Blood 2+ (Negative) H 03/15/23 04:02 Urine Nitrate Negative (Negative) 03/15/23 04:02 Urine Bilirubin Neg (Negative) 03/15/23 04:02 Urine Urobilinogen Norm mg/dL (Negative) 03/15/23 04:02 Ur Leukocyte Esterase Negative (Negative) 03/15/23 04:02 Urine RBC 5-10 /hpf (0-2) H 03/15/23 04:02 Urine WBC None /hpf (0-5) 03/15/23 04:02 Ur Squamous Epith Cells 0-4 /hpf (0-5) H 03/15/23 04:02 Amorphous Sediment Not Reportable 03/15/23 04:02 Urine Bacteria Trace /hpf (NONE) 03/15/23 04:02 Vitals Last Vital Signs Temp 98.0 F 03/16/23 11:13 Pulse 77 03/16/23 11:13 Resp 16 03/16/23 11:13 BP 106/70 03/16/23 11:13 Pulse Ox 97 03/16/23 11:13 O2 Del Method Nasal Cannula 03/16/23 11:13 O2 Flow Rate 3 03/16/23 08:00 FiO2 30 03/15/23 03:51 Discharge Plan Discharge Patient Disposition: Home Prescriptions: New prednisone 10 mg tablet See Taper PO DIRECTED Qty: 42 0RF Taper: predniSONE 60-10 60 mg Daily for 2 Days and 0 Hour 50 mg Daily for 2 Days and 0 Hour 40 mg Daily for 2 Days and 0 Hour 30 mg Daily for 2 Days and 0 Hour 20 mg Daily for 2 Days and 0 Hour 10 mg Daily for 2 Days and 0 Hour Rx Instructions: see taper instructions Augmentin 500-125 mg tablet 1 tab PO BID Qty: 10 0RF levofloxacin 750 mg tablet 750 mg PO DAILY 5 Days Qty: 5 0RF Continued aspirin 81 mg tablet,delayed release (DR/EC) 81 mg PO DAILY Qty: 90 1RF atorvastatin 80 mg tablet 80 mg PO DAILY Qty: 90 1RF (DME) wheelchair See Rx Instructions .Route .MEDSUPPLY Qty: 1 0RF Rx Instructions: As directed megestrol 400 mg/10 mL (10 mL) suspension 100 mg PO DAILY 30 Days Qty: 500 0RF citalopram [Celexa] 40 mg tablet 40 mg PO DAILY Qty: 30 2RF olanzapine [Zyprexa] 10 mg tablet 10 mg PO QDAY Qty: 30 2RF thiamine HCl (vitamin B1) 100 mg tablet 100 mg PO DAILY folic acid 1 mg tablet See Rx Instructions .ROUTE .COMPLEX Qty: 90 3RF Dose Instruction: TAKE 1 TABLET BY MOUTH EVERY DAY Rx Instructions: TAKE 1 TABLET BY MOUTH EVERY DAY Breztri Aerosphere 160-9-4.8 mcg/actuation HFA aerosol inhaler See Rx Instructions .ROUTE .COMPLEX Qty: 10.7 3RF Dose Instruction: USE 2 INHALATIONS BY MOUTH TWICE DAILY Rx Instructions: USE 2 INHALATIONS BY MOUTH TWICE DAILY carvedilol 3.125 mg tablet See Rx Instructions .ROUTE .COMPLEX Qty: 90 3RF Dose Instruction: TAKE 1 TABLET BY MOUTH EVERY 12 HOURS WITH A MEAL/FOOD Rx Instructions: TAKE 1 TABLET BY MOUTH EVERY 12 HOURS WITH A MEAL/FOOD Combivent Respimat 20-100 mcg/actuation mist See Rx Instructions .ROUTE .COMPLEX Qty: 4 3RF Dose Instruction: USE 1 INHALATION BY MOUTH EVERY 4 HOURS Rx Instructions: USE 1 INHALATION BY MOUTH EVERY 4 HOURS multivitamin Tablet 1 tab PO DAILY furosemide [Lasix] 40 mg Tablet See Rx Instructions .ROUTE .COMPLEX Rx Instructions: 40 mg orally daily as needed. alendronate 70 mg tablet 70 mg PO DIRECTED Rx Instructions: Once weekly medication. Entresto 24-26 mg tablet 1 tab PO BID cholecalciferol (vitamin D3) See Rx Instructions .ROUTE .COMPLEX Rx Instructions: 125 mcg orally once weekly on Saturday Colace 100 mg Capsule 100 mg PO DAILY Changed prednisone 20 mg tablet 40 mg PO DAILY PRN (Reason: Sob) Qty: 10 0RF Rx Instructions: FOR 7 DAYS NEEDED Discontinued doxycycline hyclate 100 mg tablet 100 mg PO BID 5 Days Qty: 10 0RF spironolactone 25 mg tablet 25 mg PO DAILY Discharge Orders: Discharge Order (Routine); Ordered 03/16/23 Ordered By: Marc Herrera Referrals: Chadd Johnson MD [Physician] - 7-10 days (Clinic will call with appointment.) Nikita Lopez MD [Hospitalist] - 7-10 days (Clinic will call with appointment. ) Discharge Diet: Cardiac Discharge Activity: Resume usual activity and Increase activity as tolerated Patient Instructions: COPD, Prednisone (By mouth), Amoxicillin/Clavulanate Potassium (By mouth) (Augmentin, Augmentin..., Levofloxacin (By mouth) (Levaquin, Levaquin Leva-pennie), Viral Pneumonia (DC), Opioid Safety Activity Restrictions/Additional Instructions: Continue taking Augmentin and Levaquin which are the antibiotics for next 5 days. Augmentin only twice daily and Levaquin once daily. Take steroids as per taper which was discussed in detail. Please check your blood pressure daily at home maintain a blood pressure diary and follow-up with a primary care provider within next 10 days for further adjustment of antihypertensives. Please make an appointment to follow-up with a primary cvicu nurse as an outpatient within next 1 week to 10 days. Discharge Attestations Time Spent in Discharge Care*: greater than 30 min Specific Discharge Activities: educating patient, educating and/or supporting family/caregiver, discussing with pcp/other providers, discussing with corrections caseworker/social workers/dc planners, documenting/other paperwork and evaluating patient/reviewing data Status at Discharge: Cognitive status at discharge: cognitively intact , Behavioral status at discharge: cooperative , Functional status at discharge: independent ambulation , Overall status at discharge: patient is progressing back to baseline Quality Metrics Clinical Quality Measures [ No reported AMI, CVA or VTE this stay] Coding Level of Care Code 30631 Total time (in minutes) for Discharge: 60 Diagnoses Urinary retention R33.9 Left lower lobe pulmonary infiltrate R91.8 Physical deconditioning R53.81 Protein calorie malnutrition E46 Severe muscle deconditioning R29.898 Back pain M54.9 Vitamin D deficiency E55.9 Unintentional weight loss R63.4 Chronic obstructive pulmonary disease J44.9 Schizoaffective disorder, depressive type F25.1
[2023-03-16] MEDS: tamsulosin 0.4 mg Capsule PO (11:51)
--- NOTE | 2023-03-16 12:33 | PC.NURSE ---
Holding patient's discharge until voiding trial is complete.
== END 2023-03-16 13:55 | disposition home or self-care (01) | DRG 193 ==
PROVIDERS: Internal Medicine; Admitting Provider Internal Medicine; PCP Family Medicine; Visit Provider Student in an Organized Health Care Education/Training Program
DX: J18.9 Pneumonia, unspecified organism (principal); J96.02 Acute respiratory failure with hypercapnia; J44.1 Chronic obstructive pulmonary disease with (acute) exacerbation; E46 Unspecified protein-calorie malnutrition; Z68.1 Body mass index [BMI] 19.9 or less, adult; J96.11 Chronic respiratory failure with hypoxia; J44.0 Chronic obstructive pulmonary disease with (acute) lower respiratory infection; R33.9 Retention of urine, unspecified; F25.1 Schizoaffective disorder, depressive type; F41.1 Generalized anxiety disorder; I25.10 Atherosclerotic heart disease of native coronary artery without angina pectoris; I10 Essential (primary) hypertension; M16.0 Bilateral primary osteoarthritis of hip; M54.16 Radiculopathy, lumbar region; Z66 Do not resuscitate; M81.0 Age-related osteoporosis without current pathological fracture; F17.210 Nicotine dependence, cigarettes, uncomplicated
CPT/HCPCS: 36415; 36600; 51702; 71045; 71260; 74177; 80048; 80053; 81001; 82803; 83735; 83880; 84100; 84145; 85025; 86140; 86403; 87040; 93005; 94640; 94660; 94664; 94762; J0456; J0696; J2920; J7050; J7626; Q0144; Q9967

== ENCOUNTER → 2023-03-20 08:52 | Outpatient (BNVA) | payer MEDICAID, SELFPAY | PROVIDERS: PCP Family Medicine; Visit Provider Internal Medicine Pulmonary Disease | DX: J18.9 Pneumonia, unspecified organism (principal); J43.2 Centrilobular emphysema; Z71.6 Tobacco abuse counseling; F17.210 Nicotine dependence, cigarettes, uncomplicated; R63.4 Abnormal weight loss; Z68.1 Body mass index [BMI] 19.9 or less, adult; M80.059A Age-related osteoporosis with current pathological fracture, unspecified femur, initial encounter for fracture | CPT/HCPCS: 99214 ==

== ENCOUNTER 2023-05-13 10:40 | Inpatient (IN) | payer MEDICAID, SELFPAY ==
[2023-05-13] VITALS (10 sets, daily range): BP systolic 97–126; BP diastolic 50–62; PULSE 72–105; RESP 16–22; TEMP 36.4–37; O2SAT 91–97; BMI 16.1
--- NOTE | 2023-05-13 10:55 | XR_ITS ---
WS: [id number] EXAMINATION: XR chest 1V portable [id number] REASON FOR EXAM: sob COMPARISON: 03/14/2023 01/06/[address] chest 08/23/2017 ORDER DATE: 05/13/2023 10:55 AM TECHNIQUE: A single, portable frontal chest x-ray was obtained. X-RAY FINDINGS: Lungs: Discoid opacities persist in the left mid and lower hemithorax compatible with chronic parenchymal and pleural scarring. There are generalized changes of emphysema. Pleural spaces: No effusions, chronic pleural thickening greater on the left especially in the left a pical area which is causing tracheal retraction to the left. This was negligible in 2017 only minimal in 2020 having shown a significant increase since, suggest ongoing inflammatory process and/or indol ent neoplasm Heart/Mediastinum: Unremarkable. No cardiomegaly. Bones/joints: Unremarkable. IMPRESSION: 1. Unchanged emphysema. 2. There are stable discoid opacities and pleural thickening seen in the left mid and lower hemithorax compatible with pleural and parenchymal scarring. 3. Progressive pleural thickening and scarring in the left apex with increasing tracheal retraction. Cannot exclude indolent neoplasm or inflammatory/infectious process. Recommend CT imaging correlation .
--- NOTE | 2023-05-13 10:56 | ED_ITS ---
HPI - SOB/Dyspnea General: Chief Complaint: Shortness of Breath/Dyspnea Stated Complaint: resp distress x 3 days Time Seen by Provider: 05/13/23 10:48 Source: patient Mode of arrival: EMS Limitations: no limitations History of Present Illness: HPI Narrative: This patient was transported from his home by EMS. He has had a history of increasing shortness of breath over the past 3 days and is turned his oxygen up higher than usual. He denies any known fevers or concomitant chest pain. He does have a history of COPD and states he quit smoking about 3 weeks ago. He denies any known exposure to infectious disease. He has not been immunized against viral illnesses this year but has previously. He states his spouse is not ill. He says he has been eating and drinking albeit less than usual. He denies any other constitutional complaints at this time. He was transported From home by EMS. In route he received beta agonist, steroids, benzodiazepines and nonrebreather oxygen supplementation. MD elicited complaint: shortness of breath and cough Pertinent past history: COPD and congestive heart failure Associated symptoms: Deny abdominal pain, chest pain, extremity pain, fever(s), hemoptysis, nausea, palpitations or vomiting Review of Systems Const: Denies: fever(s) or chills Eyes: Denies: change in vision ENMT: Denies: throat pain, odynophagia, nasal discharge or nasal congestion Card: Denies: chest pain, palpitations or irregular heart rhythm Resp: Reports: dyspnea, productive cough and wheezing; Denies: hemoptysis GI: Denies: abdominal pain, nausea, vomiting or diarrhea : Denies: difficulty urinating, dysuria or urinary frequency Musc: Denies: neck pain, back pain, extremity pain or extremity swelling Neuro: Denies: headache(s), numbness in extremities or weakness in extremities Psych: Denies: anxiety or depression Duc/Lymph: Denies: easy bruising or easy bleeding PFSH ED PFSH: Medical History Back pain Bilateral primary osteoarthritis of hip Cachexia CAD (coronary artery disease) Chronic obstructive pulmonary disease Chronic SI joint pain Essential hypertension Generalized anxiety disorder Hip fracture History of fracture of left hip Hypertension screen Lumbar radiculopathy, chronic Medication management Nicotine dependence, cigarettes, uncomplicated On combination antipsychotic drug therapy Osteoporosis Prostate cancer screening Psychiatric care Schizoaffective disorder, depressive type Unintentional weight loss Vitamin D deficiency Weight loss Social History Smoking and tobacco status: current every day smoker cigarettes Packs smoked per day: 2 Years cigarettes smoked: 50 Quit status (tobacco): has quit using tobacco Second hand smoke exposure: Yes Smoking risk assessment/counseling performed?: Yes Tobacco counseling given: counseling >3 minutes Alcohol intake: current Alcohol intake frequency: 3 or more drinks per day Desire information about alcohol rehabilitation?: No Substance/Drug Use: never Lives independently: Yes Household members: spouse Marital status: service: No Current occupational status: disabled Pets and animals: Yes Do you think of yourself as: Straight/Heterosexual Current gender identity: Male Physical Exam Narrative: EXAM NARRATIVE: Patient is currently alert and responds appropriately to questions. He has a n onrebreather mask on his face. He appears to be comfortable at this time. Slightly dyspneic with extended sentences Const: COMMON NORMALS: patient oriented x3 and alert GENERAL APPEARANCE: cooperative NUTRITIONAL APPEARANCE: thin HENMT: COMMON NORMALS: normocephalic, Normal nasal mucous membranes and turbinates present, moist oral mucous membranes and oropharynx normal HEAD & SCALP: normocephalic NOSE: Normal nasal mucous membranes and turbinates present Eye: COMMON NORMALS: Equal, round and reactive pupils present, EOMs intact bilaterally and conjunctivae normal CONJUNCTIVA: Yes conjunctivae normal PUPIL: Yes Equal, round and reactive pupils present Neck/C-Spine: COMMON NORMALS: full ROM and no JVD Chest: COMMONS NORMALS: normal inspection of the chest Resp: EFFORT & INSPECTION: Yes uses accessory muscles AUSCULTATION: crackles Laterality: bilateral and diminished lung sounds (Basis) Cardio: COMMON NORMALS: no JVD, regular rate, regular rhythm, No murmurs present (Cardio) and Peripheral pulses 2+ throughout RATE: regular rate RHYTHM: regular rhythm PERIPHERAL PULSES: Peripheral pulses 2+ throughout GI: COMMON NORMALS: Normal to inspection, nondistended, normoactive bowel sounds present and Soft to palpation PALPATION: Yes Soft to palpation : COMMON NORMALS: Yes no CVA tenderness BLADDER/KIDNEY EXAM: Yes no CVA tenderness Back/Pelvis: COMMON NORMALS: no CVA tenderness and no thoracic nor lumbar ten derness Extremity: COMMON NORMALS: normal to inspection, full ROM, no clubbing, cyanosis or edema, no calf tenderness and no pedal edema Neuro: COMMON NORMALS: patient oriented x3, moves all extremities, no focal motor deficits and no sensory deficits noted SENSORIUM/ORIENTATION: Yes alert CRANIAL NERVES: Yes CN normal except as noted Psych: COMMON NORMALS: mental status grossly normal Skin: COMMON NORMALS: no rashes or lesions noted, no wounds and turgor normal GENERAL SKIN EXAM: no rashes or lesions noted and turgor normal Course Reevaluation(s): Reevaluation #1: Patient is improved on high flow nasal cannula. He still having diminished air movement but it is improved. Discussed findings with both he and his spouse. We will plan on admitting the patient for further care. Of also ordered a noncontrast CT to further delineate his chest pathology. He has an initial elevation in his troponin but has no ongoing chest pain and no findings on repeat EKG to suggest acute ongoing ischemia but this will need to be further delineated with repeat biomarkers and EKGs. Time: 12:28 Consultations: Consultation #1: Discussed with Dr. Raymundo hospitalist service. He will admit the patient. Time: 12:28 Vital Signs: Vital signs: Vital Signs Temperature 97.5 F L 05/13/23 10:42 Pulse Rate 90 05/13/23 11:33 Respiratory Rate 18 05/13/23 11:33 Blood Pressure 105/61 05/13/23 11:33 Pulse Oximetry 92 05/13/23 11:33 Oxygen Delivery Me thod Nasal Cannula 05/13/23 11:33 Oxygen Flow Rate 40 05/13/23 11:33 Fraction of Inspir ed Oxygen 40 05/13/23 11:33 MDM - SOB/Dyspnea Medical Decision Making Patient with a longstanding history of COPD that is oxygen dependent was transported by EMS from home after 3 days of increasing symptoms of shortness of breath and productive cough. Uncertain of fevers. Initial evaluation revealed him to be significant oxygen requiring an initial ABG and date indicated that he was hypoxic on 6 L of nasal cannula therefore he is being instituted on high flow nasal cannula and additional work-up ending. He will likely need admission for further care. Patient's plain film chest x-ray showed some ill-defined changes and therefore a CT scan was obtained. He also has an elevation in his initial troponin without any ischemic changes suggesting ACS and/or AMI on EKGs which is likely due to his acute exacerbation of COPD with causing a bump in his troponin however this will need to be trended. Lab Data I reviewed the patient's lab results. 05/13/23 10:02 05/13/23 10:02 Labs/Radiology: Laboratory Results WBC 16.20 10^3/uL (3.29-11.43) H 05/13/23 10:02 RBC 3.81 10^6/uL (3.85-5.65) L 05/13/23 10:02 Hgb 12.10 g/dL (11.27-16.99) 05/13/23 10:02 Hct 36.2 % (37-53) L 05/13/23 10:02 MCV 95.0 fl (82-101) 05/13/23 10:02 MCH 31.8 pg (27-33) 05/13/23 10:02 MCHC 33.4 g/dL (30-55) 05/13/23 10:02 RDW 11.7 % (12.1-15.1) L 05/13/23 10:02 Plt Count 502 10^3/cmm (157-399) H 05/13/23 10:02 MPV 9.0 fL (7.4-10.4) 05/13/23 10:02 Neut % (Auto) 88.1 % 05/13/23 10:02 Lymph % (Auto) 2.7 % 05/13/23 10:02 [place] % (Auto) 7.0 % 05/13/23 10:02 Eos % (Auto) 1.1 % 05/13/23 10:02 Baso % (Auto) 0.3 % 05/13/23 10:02 Neut # (Auto) 14.27 10^3/uL (1.8-7.7) H 05/13/23 10:02 Lymph # (Auto) 0.4 10^3/uL (0.8-4.8) L 05/13/23 10:02 [place] # (Auto) 1.1 10^3/uL (0.2-0.9) H 05/13/23 10:02 Eos # (Auto) 0.2 10^3/uL (0.0-0.8) 05/13/23 10:02 Baso # (Auto) 0.1 10^3/uL (0.0-0.1) 05/13/23 10:02 Nucleated RBC % (auto) 0 % 05/13/23 10:02 Nucleated RBCs # 0.0 /100WBC 05/13/23 10:02 Specimen Type Arterial 05/13/23 11:07 Sample Site Brachial, left 05/13/23 11:07 ABG pH 7.39 (7.35-7.45) 05/13/23 11:07 ABG pO2 50.3 mmHg (80.0-100.0) L 05/13/23 11:07 ABG HCO3 41.5 mmol/L (22-26) H 05/13/23 11:07 ABG Base Excess 13.8 mmol/L (-2.0-2.0) H 05/13/23 11:07 Mariusz Test Pos 05/13/23 11:07 Hematocrit 35.4 % (42-52) L 05/13/23 11:07 Hgb O2 Saturation 84.0 % (95-100) L 05/13/23 11:07 Carboxyhemoglobin 1.4 %THgb (0.4-20.1) 05/13/23 11:07 Methemoglobin 0.2 % (0.4-1.5) L 05/13/23 11:07 Total Hemoglobin 11.5 g/dL (14-18) L 05/13/23 11:07 O2 Delivery Device Nc 05/13/23 11:07 O2 Liters/Min 6.0 % 05/13/23 11:07 Geography Instructor ID Cak 05/13/23 11:07 Sodium 134 mmol/L (136-145) L 05/13/23 10:02 Potassium 4.2 mmol/L (3.5-5.1) 05/13/23 10:02 Chloride 87 mmol/L (98-107) L 05/13/23 10:02 Carbon Dioxide 38 mmol/L (22-29) H 05/13/23 10:02 Anion Gap 13.2 (5-19) 05/13/23 10:02 BUN 2 mg/dL (8-23) L 05/13/23 10:02 Creatinine 0.4 mg/dL (0.7-1.2) L 05/13/23 10:02 GFR Calculation 216.6 mL/min (90-130) H 05/13/23 10:02 Glucose 108 mg/dL (65-115) 05/13/23 10:02 Calculated Osmolality 275 mOsm/kg (285-295) L 05/13/23 10:02 Lactic Acid 0.9 mmol/L (0.5-2.2) 05/13/23 11:34 Calcium 8.7 mg/dL (8.5-10.5) 05/13/23 10:02 Total Bilirubin 0.5 mg/dL (0.15-1.2) 05/13/23 10:02 AST 14 U/L (0-40) 05/13/23 10:02 ALT 9 U/L (0-41) 05/13/23 10:02 Alkaline Phosphatase 104 U/L (40-130) 05/13/23 10:02 Troponin T Gen 5 ng/L 45 ng/L (0-15) H 05/13/23 10:02 NT-Pro-B Natriuret Pep 36 pg/mL (0-125) 05/13/23 10:02 Total Protein 6.4 g/dL (6.6-8.7) L 05/13/23 10:02 Albumin 3.9 g/dL (3.5-5.2) 05/13/23 10:02 Globulin 2.5 g/dL (1.3-4.6) 05/13/23 10:02 All radiology interpretation(s) finalized by discharge EKG Data EKG 1: I personally reviewed and interpreted this EKG as follows: Interpretation: Initial resting EKG reveals a ventricular rate of 101 bpm. Normal SD interval, QRS duration, corrected QT interval. Leftward axis noted however he has low voltage likely indicative of pulmonary disease. He does have occasional sinus arrhythmia. No acute ST-T wave changes indicative of ischemia at this time. Compared with previous tracing on file low voltage is a new finding however QRS complexes are essentially unchanged in morphology Discharge Plan Discharge Patient Disposition: Admitted As Inpatient Clinical Impression: COPD with acute exacerbation, Non-ischemic myocardial injury (non-traumatic) Condition: Stable Prescriptions: No Action aspirin 81 mg tablet,delayed release (DR/EC) 81 mg PO DAILY Qty: 90 1RF atorvastatin 80 mg tablet 80 mg PO DAILY Qty: 90 1RF (DME) wheelchair See Rx Instructions .Route .MEDSUPPLY Qty: 1 0RF Rx Instructions: As directed citalopram [Celexa] 40 mg tablet 40 mg PO DAILY Qty: 30 2RF thiamine HCl (vitamin B1) 100 mg tablet 100 mg PO DAILY pseudoephedrine-guaifenesin [Mucinex D Maximum Strength] 120-1,200 mg tablet extended release 12 hr 1 tab PO Q12H PRN (Reason: cold symptoms) Qty: 60 2RF budesonide 0.5 mg/2 mL suspension for nebulization 0.5 mg inhalation BID Qty: 120 6RF alendronate 70 mg tablet 70 mg PO Q7D Zyprexa 10 mg tablet 10 mg PO QAM carvedilol 3.125 mg tablet 3.125 mg PO BID folic acid 1 mg tablet 1 mg PO DAILY Combivent Respimat 20-100 mcg/actuation mist 1 puff inhalation Q4H Rx Instructions: USE 1 INHALATION BY MOUTH EVERY 4 HOURS Breztri Aerosphere 160-9-4.8 mcg/actuation HFA aerosol inhaler 2 inh inhalation BID multivitamin Tablet 1 tab PO DAILY furosemide [Lasix] 40 mg Tablet 40 mg PO DAILY PRN (Reason: Edema) Entresto 24-26 mg tablet 1 tab PO BID cholecalciferol (vitamin D3) See Rx Instructions .ROUTE .COMPLEX Rx Instructions: 125 mcg orally once weekly on Saturday docusate sodium [Colace] 100 mg Capsule 100 mg PO DAILY Referrals: Nikita Lopez MD [Primary Care Provider] - Coding Level of Care Code ED Environmental Programs Specialist for Britney Strange
[2023-05-13] MEDS: ipratropium-albuterol 3 mL Neb INHALATION ×3 (11:00→19:34)
--- NOTE | 2023-05-13 11:06 | ECG_ITS ---
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 Measurements Intervals [place] Rate: 101 P: 83 ME: 139 QRS: 78 QRSD: 88 T: 63 QT: 272 QTc: 353 Interpretive Statements SINUS TACHYCARDIA WITH OCCASIONAL SUPRAVENTRICULAR PREMATURE COMPLEXES POSSIBLE RIGHT VENTRICULAR CONDUCTION DELAY [RSR (QR) IN V1/V2] NONSPECIFIC ST & T-WAVE ABNORMALITY Compared to ECG 03/14/2023 23:38:05 T-wave abnormality now present Sinus rhythm no longer present Electronically Signed On 05-13-2023 11:15:56 CDT by Omer Lua M.D. [id number]
[2023-05-13 11:10] LABS: Basophils # 0.1 10^3/uL (0.0-0.1); Basophils % 0.3 %; Eosinophils # 0.2 10^3/uL (0.0-0.8); Eosinophils % 1.1 %; Hematocrit 36.2 % (37-53); Lymphocytes # 0.4 10^3/uL (0.8-4.8); Lymphocytes % 2.7 %; Mean Corpuscular HGB Conc 33.4 g/dL (30-55); Mean Corpuscular Hemoglobin 31.8 pg (27-33); Monocytes # 1.1 10^3/uL (0.2-0.9); Neutrophils # 14.27 10^3/uL (1.8-7.7); Neutrophils % 88.1 %; Nucleated Red Blood Cells % 0 %; Platelet Count 502 10^3/cmm (157-399); Red Blood Count 3.81 10^6/uL (3.85-5.65); Red Cell Distribution Width 11.7 % (12.1-15.1)
[2023-05-13] MEDS: sodium chloride 0.9% 1,000 ML 150 ML IV (11:15)
[2023-05-13 11:18] LABS: ABG PH Result 7.39 (7.35-7.45); Arterial Blood Gas Hematocrit 35.4 % (42-52); Base Excess ABG 13.8 mmol/L (-2.0-2.0); Blood Gas Allen Test Pos; Blood Gas Operator Identificat CAK; Blood Gas Sample Site Brachial, left; Blood Gas Sample Type Arterial; Carboxyhemoglobin 1.4 %THgb (0.4-20.1); HCO3 ABG 41.5 mmol/L (22-26); Methemoglobin 0.2 % (0.4-1.5); Oxygen Device NC; PO2 ABG 50.3 mmHg (80.0-100.0); Total Hemoglobin 11.5 g/dL (14-18)
[2023-05-13 11:28] LABS: Troponin T (5th) Once 45 ng/L (0-15)
[2023-05-13 11:38] LABS: Alanine Aminotransferase 9 U/L (0-41); Albumin Level 3.9 g/dL (3.5-5.2); Alkaline Phosphatase 104 U/L (40-130); Anion Gap 13.2 (5-19); Aspartate Amino Transferase 14 U/L (0-40); Blood Urea Nitrogen 2 mg/dL (8-23); Calcium 8.7 mg/dL (8.5-10.5); Carbon Dioxide 38 mmol/L (22-29); Chloride 87 mmol/L (98-107); Globulin 2.5 g/dL (1.3-4.6); Glomerular Filtration Rate 216.6 mL/min (90-130); Glucose 108 mg/dL (65-115); NT Pro B Type Natriuretic Pept 36 pg/mL (0-125); Osmolality Calculated 275 mOsm/kg (285-295); Potassium 4.2 mmol/L (3.5-5.1); Sodium 134 mmol/L (136-145); Total Bilirubin 0.5 mg/dL (0.15-1.2); Total Protein 6.4 g/dL (6.6-8.7)
[2023-05-13 12:01] LABS: Lactic Sepsis W/Reflex 0.9 mmol/L (0.5-2.2)
--- NOTE | 2023-05-13 12:11 | ECG_ITS ---
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 Measurements Intervals [place] Rate: 84 P: 85 AL: 146 QRS: 83 QRSD: 89 T: 87 QT: 394 QTc: 467 Interpretive Statements SINUS RHYTHM POSSIBLE RIGHT VENTRICULAR CONDUCTION DELAY [RSR (QR) IN V1/V2] NONSPECIFIC ST ELEVATION [0.05+ mV ST ELEVATION] Compared to ECG 05/13/2023 11:06:03 ST (T wave) deviation now present Sinus tachycardia no longer present T-wave abnormality no longer present Electronically Signed On 05-13-2023 14:26:58 CDT by Omer Lua M.D. [id number]
--- NOTE | 2023-05-13 12:19 | CT_ITS ---
WS: [id number] CT CHEST TECHNIQUE: Noncontrast CT of the chest with coronal and sagittal reformatted images. CLINICAL INFORMATION: abn chest xray COMPARISON: None. DLP: 240.[address] scans at [facility] use at least one of these dose optimization techniques: automated e xposure control; mA and/or kV adjustment per patient size (includes targeted exams where dose is matc hed to clinical indication); or iterative reconstruction. FINDINGS: Decreased volume LEFT hemithorax unchanged compared to previous. Advanced chronic emphysematous dockery es. Tiny bilateral pleural effusions. Pleural and parenchymal scarring in the lower lobes similar to previous. Patchy interstitial and reticular opacities in the lung bases progressed compared to previo us. Semisolid patchy opacities in the LEFT lower lobe with bronchiectasis. Recommend correlation for pneumonia. Subsegmental atelectasis in the lingula with air bronchograms. Parenchymal pleural parenchymal scarri ng in the LEFT lung apex similar to previous. No evidence of hilar or mediastinal mass. No mediastina l or hilar lymphadenopathy. Tiny pericardial effusion. New compression fracture involving the T9 vertebral body with biconcave compression measuring approxi mately 50%. No retropulsion. Stable compression inferior endplate T12. IMPRESSION: 1. Advanced chronic emphysematous changes similar to previous. 2. New tiny bilateral pleural effusions. 3. Patchy interstitial and reticular opacities in the lung bases with bronchiectasis LEFT lower lobe . Recommend correlation for pneumonia. 4. Subsegmental atelectasis with air bronchograms in the lingula. 5. No mediastinal or hilar lymphadenopathy. 6. Stable volume loss LEFT lung. 7. New compression fracture involving the T9 vertebral body with biconcave compression measuring ophelia roximately 50%. No retropulsion.
[2023-05-13 12:34] LABS: Troponin 5 2HR 35.73 ng/L (0-15)
--- NOTE | 2023-05-13 12:40 | PM.HP ---
Providers/Chief Complaint Primary Care Provider: Nikita Lopez MD Chief Complaint: resp distress x 3 days History of Present Illness Akira Goss Jr is a 62 year old male who has end-stage COPD, uses 3 to 4 L of oxygen, follows up with Dr. Johnson, was not able to get a BiPAP at home because of insurance noncoverage, presented with chief complaint of worsening of shortness of breath, he has been experiencing significant weight loss, cachexia and malnourishment, experiencing poor quality of life. He can only walk up to like 15 feet without getting a break. He has quit smoking. His blood pressure has been low, he is on Entresto and Coreg for reduced ejection fraction heart failure. Review of Systems Const: Reports: chills and fatigue Eyes: Denies: change in vision ENMT: Denies: throat pain Card: Reports: swelling of feet/ankles Resp: Reports: dyspnea GI: Denies: abdominal pain : Denies: flank pain or difficulty starting urination Medications/Allergies Home Medications Medication Instructions Recorded Confirmed Last Taken Type thiamine HCl (vitamin B1) 100 mg 100 mg PO DAILY 02/01/22 05/13/23 05/12/23 History tablet aspirin 81 mg tablet,delayed 81 mg PO DAILY #90 tabs 02/22/22 05/13/23 05/12/23 Rx release atorvastatin 80 mg tablet 80 mg PO DAILY #90 tabs 02/22/22 05/13/23 05/12/23 Rx wheelchair #1 ea 01/10/23 05/13/23 Unknown Rx citalopram 40 mg tablet (Celexa) 40 mg PO DAILY #30 tabs 03/07/23 05/13/23 05/12/23 Rx cholecalciferol (vitamin D3) See Rx Instructions .Route .COMPLEX 03/15/23 05/13/23 05/10/23 History docusate sodium 100 mg capsule 100 mg PO DAILY 03/15/23 05/13/23 05/12/23 History (Colace) furosemide 40 mg tablet (Lasix) 40 mg PO DAILY PRN Edema 03/15/23 05/13/23 05/12/23 History multivitamin 1 tab PO DAILY 03/15/23 05/13/23 05/12/23 History sacubitril 24 mg-valsartan 26 mg 1 tab PO BID 0805/13/23 05/12/23 History tablet (Entresto) pseudoephedrine-guaifenesin ER 120 1 tab PO Q12H PRN cold symptoms 03/20/23 05/13/23 Unknown Rx mg-1,200 mg tab,extend release #60 tabs 12hr (Mucinex D Maximum Strength) budesonide 0.5 mg/2 mL suspension 0.5 mg (2 mL) inhalation BID COPD 03/27/23 05/13/23 05/12/23 Rx for nebulization #120 mL alendronate 70 mg tablet 70 mg PO Q7D 05/13/23 05/13/23 Unknown History budesonide 160 mcg-glycopyr 9 2 inh inhalation BID 05/13/23 05/13/23 05/12/23 History mcg-formot 4.8 mcg/actuation HFA inhaler (Breztri Aerosphere) carvedilol 3.125 mg tablet 3.125 mg PO BID 05/13/23 05/13/23 05/12/23 History folic acid 1 mg tablet 1 mg PO DAILY 05/13/23 05/13/23 05/12/23 History ipratropium 20 mcg-albuterol 100 1 puff inhalation Q4H 05/13/23 05/13/23 05/12/23 History mcg/actuation mist for inhalation (Combivent Respimat) olanzapine 10 mg tablet (Zyprexa) 10 mg PO QAM 05/13/23 05/13/23 05/12/23 History Allergies Allergy/AdvReac Type Severity Reaction Status Date / Time No Known Allergies Allergy Verified 04/18/23 11:02 PFSH Acute PFSH: Medical History Back pain Bilateral primary osteoarthritis of hip Cachexia CAD (coronary artery disease) Chronic obstructive pulmonary disease Chronic SI joint pain Essential hypertension Generalized anxiety disorder Hip fracture History of fracture of left hip Hypertension screen Lumbar radiculopathy, chronic Medication management Nicotine dependence, cigarettes, uncomplicated On combination antipsychotic drug therapy Osteoporosis Prostate cancer screening Psychiatric care Schizoaffective disorder, depressive type Unintentional weight loss Vitamin D deficiency Weight loss Social History Smoking and tobacco status: current every day smoker cigarettes Packs smoked per day: 2 Years cigarettes smoked: 50 Quit status (tobacco): has quit using tobacco Second hand smoke exposure: Yes Smoking risk assessment/counseling performed?: Yes Tobacco counseling given: counseling >3 minutes Alcohol intake: current Alcohol intake frequency: 3 or more drinks per day Desire information about alcohol rehabilitation?: No Substance/Drug Use: never Lives independently: Yes Household members: spouse Marital status: service: No Current occupational status: disabled Pets and animals: Yes Do you think of yourself as: Straight/Heterosexual Current gender identity: Male Vitals/I&O/Wt Last Vital Signs Temp 97.5 F L 05/13/23 10:42 Pulse 90 05/13/23 11:33 Resp 18 05/13/23 11:33 BP 105/61 05/13/23 11:33 Pulse Ox 92 05/13/23 11:33 O2 Del Method Nasal Cannula 05/13/23 11:33 O2 Flow Rate 40 05/13/23 11:33 FiO2 40 05/13/23 11:33 Weight last 48 hrs Weight 45.359 kg Physical Exam Narrative: Cachectic, malnourished Currently on heated high flow GCS 15 Fatigued and lethargic Confused Muscle mass loss at the bedside S1, S2 Thin extremities Nonfocal neuro exam Data 05/14/23 06:08 05/14/23 06:08 A&P Assessment and plan (1) COPD with acute exacerbation: (2) Non-ischemic myocardial injury (non-traumatic): (3) Anorexia: (4) Difficulty clearing secretions: (5) CAD (coronary artery disease): (6) Physical deconditioning: (7) Essential hypertension: (8) Unintentional weight loss: (9) Chronic obstructive pulmonary disease: Qualifiers: COPD type: emphysema Emphysema type: centrilobular Qualified Code(s): J43.2 - Centrilobular emphysema (10) Generalized anxiety disorder: Plan Acute COPD exacerbation pH is compensated however he has significant hypoxia Check D-dimer CT scan showing bronchiectasis, severe COPD Patient seems to be suffering a lot from his underlying COPD losing weight, failure to thrive He has end-stage COPD At baseline using 3 to 4 L of oxygen Follows up with Dr. Nevin Brunson on chronic hypoxia worsening due to pneumonia Continue ceftriaxone Patient is afebrile Significant leukocytosis however he has been given steroids by the EMS and route to the hospital Reduced ejection fraction heart failure/underlying coronary disease Active chest pain Troponin trending down Hold Entresto for low blood pressure Hypertension: We will continue Coreg at lower dose DNR/DNI Viral panel negative, Attestations Medical Necessity Statement*: More than 2 midnights anticipated for management of COPD exacerbation Diagnoses COPD with acute exacerbation J44.1 Non-ischemic myocardial injury (non-traumatic) I5A Anorexia R63.0 Difficulty clearing secretions CAD (coronary artery disease) I25.10 Physical deconditioning R53.81 Essential hypertension I10 Unintentional weight loss R63.4 Chronic obstructive pulmonary disease J43.2 COPD type: emphysema Emphysema type: centrilobular Generalized anxiety disorder F41.1
[2023-05-13 12:55] LABS: ABG PCO2 69.1 mmHg (35-45)
[2023-05-13 13:01] LABS: Influenza A by IFA negative (Negative); Influenza B by IFA negative (Negative); SARS Covid-2 Antigen negative (Negative)
[2023-05-13 13:13] LABS: D Dimer 0.83 ug/mLFEU (0-0.59)
[2023-05-13 14:41] LABS: Adenovirus Not Detected (NOT DETECT); Chlamydia Pneumoniae Not Detected (NOT DETECT); Coronavirus 229E,HKU1,NL63,OC4 Not Detected (NOT DETECT); Human Metapneumovirus Not Detected (NOT DETECT); Human Rhinovirus/Enterovirus Not Detected (NOT DETECT); Influenza A Not Detected (NOT DETECT); Influenza A H1 Not Detected (NOT DETECT); Influenza A H1-2009 Not Detected (NOT DETECT); Influenza A H3 Not Detected (NOT DETECT); Influenza B Not Detected (NOT DETECT); Mycoplasma Pneumoniae Not Detected (NOT DETECT); Parainfluenza Virus Type 1 Not Detected (NOT DETECT); Parainfluenza Virus Type 2 Not Detected (NOT DETECT); Parainfluenza Virus Type 3 Not Detected (NOT DETECT); Parainfluenza Virus Type 4 Not Detected (NOT DETECT); Respiratory Syncytial Virus A Not Detected (NOT DETECT); Respiratory Syncytial Virus B Not Detected (NOT DETECT); SARS-COV-2 Not Detected (NOT DETECT)
[2023-05-13 14:43] LABS: Estmated Average Glucose 82; Hemoglobin A1C 4.5 % (4.0-6.0)
--- NOTE | 2023-05-13 16:14 | ECG_ITS ---
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 Measurements Intervals [place] Rate: 78 P: 78 MO: 149 QRS: 86 QRSD: 85 T: 88 QT: 409 QTc: 466 Interpretive Statements SINUS RHYTHM POSSIBLE RIGHT VENTRICULAR CONDUCTION DELAY [RSR (QR) IN V1/V2] Compared to ECG 05/13/2023 12:11:05 ST (T wave) deviation no longer present Electronically Signed On 05-13-2023 23:43:51 CDT by Omer Lua M.D. [id number]
[2023-05-13 17:32] LABS: Troponin 5 6HR 29.37 ng/L (0-15)
[2023-05-14] VITALS (12 sets, daily range): BP systolic 92–107; BP diastolic 58–69; PULSE 68–85; RESP 15–22; TEMP 36.4–36.8; O2SAT 89–95; BMI 16.1
[2023-05-14 04:13] LABS: ABG PH Result 7.41 (7.35-7.45); Arterial Blood Gas Hematocrit 32.1 % (42-52); Base Excess ABG 14.8 mmol/L (-2.0-2.0); Blood Gas Allen Test Pos; Blood Gas Sample Site Radial, right; Blood Gas Sample Type Arterial; PO2 ABG 62.1 mmHg (80.0-100.0)
[2023-05-14 04:14] LABS: Oxygen Device HAG
[2023-05-14 06:45] LABS: Basophils % 0.2 %; Eosinophils % 0.1 %; Hematocrit 34.2 % (37-53); Lymphocytes % 7.7 %; Mean Corpuscular HGB Conc 32.7 g/dL (30-55); Mean Corpuscular Hemoglobin 31.9 pg (27-33); Mean Corpuscular Volume 97.4 fl (82-101); Mean Platelet Volume 8.8 fL (7.4-10.4); Neutrophils # 10.68 10^3/uL (1.8-7.7); Neutrophils % 83.5 %; Nucleated Red Blood Cells % 0 %; Platelet Count 457 10^3/cmm (157-399); Red Blood Count 3.51 10^6/uL (3.85-5.65); Red Cell Distribution Width 11.7 % (12.1-15.1); White Blood Count 12.78 10^3/uL (3.29-11.43)
[2023-05-14 07:06] LABS: Anion Gap 10.9 (5-19); Blood Urea Nitrogen 4 mg/dL (8-23); C Reactive Protein 73.2 mg/L (0.0-4.9); Calcium 8.7 mg/dL (8.5-10.5); Carbon Dioxide 37 mmol/L (22-29); Chloride 89 mmol/L (98-107); Glomerular Filtration Rate 216.6 mL/min (90-130); Glucose 132 mg/dL (65-115); Magnesium 1.9 mg/dL (1.7-2.3); Osmolality Calculated 275 mOsm/kg (285-295); Phosphorus 3.3 mg/dL (2.5-4.5); Potassium 3.9 mmol/L (3.5-5.1); Sodium 133 mmol/L (136-145)
[2023-05-14] MEDS: folic acid 1 mg Tablet PO (08:07)
[2023-05-14] MEDS: FUROsemide 20 mg Tablet PO (08:07)
[2023-05-14] MEDS: atorvastatin 40 mg Tablet 80 MG PO (08:07)
[2023-05-14] MEDS: carvedilol 3.125 mg Tablet PO ×2 (08:07→17:26)
[2023-05-14] MEDS: sennosides-docusate Tablet 1 TAB PO (08:07)
[2023-05-14] MEDS: aspirin 81 mg EC Tablet PO (08:07)
[2023-05-14] MEDS: thiamine 100 mg Tablet PO (08:08)
[2023-05-14] MEDS: cefTRIAXone 1,000 MG in sodium chloride 0.9% (plus) 50 ML 100 MG IV (08:08)
[2023-05-14] MEDS: ipratropium-albuterol 3 mL Neb INHALATION ×5 (08:24→23:47)
--- NOTE | 2023-05-14 09:18 | PC.CHAP ---
Pastoral Care Encounter/Spiritual Assessment Type of Contact [] Declined sales and events coordinator visit [] Patient/Family/Request visit [] Outpatient visit [] Follow-up visit [] Physician referral [] Code/Alert [x] Routine visit [] Staff referral [] Actively dying [] Patient sleeping [x] Family support [] [] Out of room [] Palliative care [] [] Receiving care in room [] Pre-surgical visit [] Trauma [] Long length of stay [] ICU visit [] Other: Relational/Emotional Strength [x] Patient feels connected with others/family/visitors/staff [] Distress [] Loneliness/isolation [] Abandonment Spirituality of Patient [x] Person of Jessica [] Attends Quaker of their Jessica [x] Believes in Prayer [] Reads Bible or Gnosticism materials [] There are Spiritual issues to be addressed Wastewater Treatment Supervisor Interventions [x] Prayer [x] Active listening [] Non-anxious presence [x] Spiritual/emotional support [] Crisis/trauma care [] Spiritual counseling [] Bereavement support [] Provided bereavement packet [] Provided Bible/devotional materials [] Provided toy/stuffed animal, coloring book to patient or family member [] Provided Communion [] Anointing/[place] [] Salvation [x] Completed spiritual assessment [] Other: Impact on Illness or Injury [] Angry [] Fearful [] Anxious [] Often cries [] Exhaustion [] Unable to work [] Unable to attend denominational [] Unable to walk/stand [] Unable to read [] Unable to drive [] Unable to eat/drink [] Unable to sleep [] Unable to be with family [] Patient intubated [] Other: Summary Time spent with patient 5 min
--- NOTE | 2023-05-14 11:13 | PM.PN ---
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 updated We will try to look into his insurance documents to see if he can get Medicaid and Medicare he needs BiPAP We will get overnight pulse ox study It is very important for him that he gets BiPAP at home otherwise his chances of surviving without noninvasive ventilator support a pretty low He is losing weight already, he might consider hospice if he gets worse in the future but it is definitely worth getting BiPAP approved at this point Vitals/I&O/Wt Last Vital Signs Temp 97.8 F 05/14/23 07:35 Pulse 85 05/14/23 08:27 Resp 22 H 05/14/23 08:27 BP 98/63 05/14/23 07:35 Pulse Ox 94 05/14/23 08:27 O2 Del Method Heated High Flow 05/14/23 08:27 O2 Flow Rate 40 05/14/23 08:27 FiO2 40 05/14/23 08:27 05/13/23 05/14/23 05/14/23 22:59 06:59 14:59 Intake Total 1717.5 / 1717.5 240 / 1957.5 170 / 170 Output Total 500 / 500 Balance 1717.5 / 1717.5 -260 / 1457.5 170 / 170 Weight last 48 hrs Weight 45.359 kg Physical Exam Narrative: Cachectic, malnourished Much more awake and alert GCS 15 Pleasant and cooperative Nonfocal neuro exam Thin extremities Cachectic malnourishment S1, S2 Currently on heated high flow 40 L 40% Data 05/14/23 06:08 05/14/23 06:08 A&P Assessment and plan (1) COPD with acute exacerbation: (2) Non-ischemic myocardial injury (non-traumatic): (3) Anorexia: (4) Difficulty clearing secretions: (5) CAD (coronary artery disease): (6) Severe muscle deconditioning: (7) Generalized anxiety disorder: Plan Acute on chronic COPD exacerbation Patient definitely needs BiPAP at home otherwise he is at risk of further deconditioning, I have asked [place] to see if he can get BiPAP on this admission He is losing weight, has significant poor quality of life He may consider hospice but at this point we want to try BiPAP approval first Add budesonide along DuoNeb Continue ceftriaxone Coronary disease reduced ejection fraction heart failure without significant exacerbation Continue Lasix Hold Entresto secondary to low blood pressure Hold Coreg No chest pain Poor quality of life Significant cachexia malnourishment We will see if we can get help from dietary consultation His weight loss is related to end-stage COPD DNR/DNI Cardiac consistent carb diet DVT prophylaxis Attestations Medical Necessity Statement*: BiPAP approval is awaited Diagnoses COPD with acute exacerbation J44.1 Non-ischemic myocardial injury (non-traumatic) I5A Anorexia R63.0 Difficulty clearing secretions CAD (coronary artery disease) I25.10 Severe muscle deconditioning R29.898 Generalized anxiety disorder F41.1
[2023-05-14] MEDS: budesonide 0.5 mg/2 mL Neb INHALATION (19:55)
[2023-05-15] VITALS (10 sets, daily range): BP systolic 95–103; BP diastolic 59–79; PULSE 66–77; RESP 16–22; TEMP 36.8–36.9; O2SAT 87–98
[2023-05-15] MEDS: ipratropium-albuterol 3 mL Neb INHALATION ×2 (03:07→07:24)
[2023-05-15 04:55] LABS: Basophils % 0.3 %; Eosinophils # 0.1 10^3/uL (0.0-0.8); Eosinophils % 1.5 %; Lymphocytes % 17.4 %; Mean Corpuscular HGB Conc 33.1 g/dL (30-55); Mean Corpuscular Volume 96.7 fl (82-101); Mean Platelet Volume 8.9 fL (7.4-10.4); Monocytes # 0.7 10^3/uL (0.2-0.9); Monocytes % 10.9 %; Neutrophils # 4.15 10^3/uL (1.8-7.7); Neutrophils % 69.2 %; Nucleated Red Blood Cells % 0 %; Platelet Count 403 10^3/cmm (157-399); Red Blood Count 3.31 10^6/uL (3.85-5.65); Red Cell Distribution Width 11.7 % (12.1-15.1); White Blood Count 5.99 10^3/uL (3.29-11.43)
[2023-05-15] MEDS: budesonide 0.5 mg/2 mL Neb INHALATION (07:24)
[2023-05-15] MEDS: carvedilol 3.125 mg Tablet PO (09:29)
[2023-05-15] MEDS: FUROsemide 20 mg Tablet PO (09:29)
[2023-05-15] MEDS: folic acid 1 mg Tablet PO (09:29)
[2023-05-15] MEDS: sennosides-docusate Tablet 1 TAB PO (09:29)
[2023-05-15] MEDS: aspirin 81 mg EC Tablet PO (09:29)
[2023-05-15] MEDS: atorvastatin 40 mg Tablet 80 MG PO (09:29)
[2023-05-15] MEDS: cefTRIAXone 1,000 MG in sodium chloride 0.9% (plus) 50 ML 100 MG IV (09:32)
[2023-05-15] MEDS: thiamine 100 mg Tablet PO (09:36)
--- NOTE | 2023-05-15 10:10 | P.DS_ITS ---
Discharge Providers Date of Admission: 05/13/23 12:33 Date of Discharge: May 15, 2023 Attending Provider at Admission: Jie Raymundo MD Attending Provider at Discharge: Jie Raymundo MD Primary Care Provider: Nikita Lopez MD Diagnoses at Discharge Discharge Diagnosis (1) COPD with acute exacerbation: Status: Acute (2) Non-ischemic myocardial injury (non-traumatic): Status: Acute (3) Anorexia: Status: Acute (4) Difficulty clearing secretions: Status: Acute (5) CAD (coronary artery disease): Status: Acute (6) Severe muscle deconditioning: Status: Acute (7) Generalized anxiety disorder: Status: Acute Reason for Visit Reason for Visit: resp distress x 3 days Hospital Course Hospital Course 62-year-old male who present to the hospital for worsening of shortness of breath, he has end-stage COPD uses 4 L of oxygen at baseline, cannot get his BiPAP approved which she qualifies for because of lack of insurance, on this visit we did go into detail sales branch manager was involved patient has applied for Medicare and Medicaid, he is turning 63 in June, considering significant weight loss, shortness of breath and compensated hypercarbia patient is requesting if he could be discharged home with hospice information if he would like to opt for hospice in future, I have asked upper caser to see if we can get his BiPAP approved. Patient does not want to wait until his BiPAP is appr ramandeep and wants to go home. In the hospital he has remained on high flow oxygen cannula 40% 40 L did not require BiPAP since he was compensated for his chronic hypercarbia. D-dimer unremarkable He was given IV ceftriaxone, budesonide and DuoNeb. He remained afebrile with no signs of pneumonia, CT scan of chest showed bronchiectasis chronic end-stage COPD changes. He follows up with Dr. Alex escobar tpatient CODE STATUS is DNR/DNI. High risk for readmissions, Physical Exam Narrative: Patient is awake and alert Cachectic, malnourished GCS 15 No signs of fluid overload Currently on heated high flow Nonfocal neuro exam Pleasant and cooperative Discharge Data Studies Completed and Pending Completed Studies During Hospitalization Category Date Time Status CT chest wo con [id number] Stat Cat Scan 05/13/23 12:19 Completed XR chest 1V portable [id number] Stat Exams 05/13/23 10:55 Completed Laboratory Results WBC 5.99 10^3/uL (3.29-11.43) 05/15/23 04:33 RBC 3.31 10^6/uL (3.85-5.65) L 05/15/23 04:33 Hgb 10.60 g/dL (11.27-16.99) L 05/15/23 04:33 Hct 32.0 % (37-53) L 05/15/23 04:33 MCV 96.7 fl (82-101) 05/15/23 04:33 MCH 32.0 pg (27-33) 05/15/23 04:33 MCHC 33.1 g/dL (30-55) 05/15/23 04:33 RDW 11.7 % (12.1-15.1) L 05/15/23 04:33 Plt Count 403 10^3/cmm (157-399) H 05/15/23 04:33 MPV 8.9 fL (7.4-10.4) 05/15/23 04:33 Neut % (Auto) 69.2 % 05/15/23 04:33 Lymph % (Auto) 17.4 % 05/15/23 04:33 [place] % (Auto) 10.9 % 05/15/23 04:33 Eos % (Auto) 1.5 % 05/15/23 04:33 Baso % (Auto) 0.3 % 05/15/23 04:33 Neut # (Auto) 4.15 10^3/uL (1.8-7.7) 05/15/23 04:33 Lymph # (Auto) 1.0 10^3/uL (0.8-4.8) 05/15/23 04:33 [place] # (Auto) 0.7 10^3/uL (0.2-0.9) 05/15/23 04:33 Eos # (Auto) 0.1 10^3/uL (0.0-0.8) 05/15/23 04:33 Baso # (Auto) 0.0 10^3/uL (0.0-0.1) 05/15/23 04:33 Nucleated RBC % (auto) 0 % 05/15/23 04:33 Nucleated RBCs # 0.0 /100WBC 05/15/23 04:33 D-Dimer 0.83 ug/mLFEU (0-0.59) H 05/13/23 11:34 Specimen Type Arterial 05/14/23 04:05 Sample Site Radial, right 05/14/23 04:05 ABG pH 7.41 (7.35-7.45) 05/14/23 04:05 ABG pCO2 67.0 mmHg (35-45) H* 05/14/23 04:05 ABG pO2 62.1 mmHg (80.0-100.0) L 05/14/23 04:05 ABG HCO3 42.0 mmol/L (22-26) H 05/14/23 04:05 ABG Base Excess 14.8 mmol/L (-2.0-2.0) H 05/14/23 04:05 Mariusz Test Pos 05/14/23 04:05 Hematocrit 32.1 % (42-52) L 05/14/23 04:05 Hgb O2 Saturation 84.0 % (95-100) L 05/13/23 11:07 Carboxyhemoglobin 1.4 %THgb (0.4-20.1) 05/13/23 11:07 Methemoglobin 0.2 % (0.4-1.5) L 05/13/23 11:07 Total Hemoglobin 11.5 g/dL (14-18) L 05/13/23 11:07 O2 Delivery Device Hag 05/14/23 04:05 O2 Liters/Min 40.0 % 05/14/23 04:05 FiO2 40.0 % 05/14/23 04:05 Data Entry Manager ID [email or web address] 05/14/23 04:05 Sodium 133 mmol/L (136-145) L 05/14/23 06:08 Potassium 3.9 mmol/L (3.5-5.1) 05/14/23 06:08 Chloride 89 mmol/L (98-107) L 05/14/23 06:08 Carbon Dioxide 37 mmol/L (22-29) H 05/14/23 06:08 Anion Gap 10.9 (5-19) 05/14/23 06:08 BUN 4 mg/dL (8-23) L 05/14/23 06:08 Creatinine 0.4 mg/dL (0.7-1.2) L 05/14/23 06:08 GFR Calculation 216.6 mL/min (90-130) H 05/14/23 06:08 Glucose 132 mg/dL (65-115) H 05/14/23 06:08 Estimat Average Glucose 82 05/13/23 10:02 Hemoglobin A1c 4.5 % (4.0-6.0) 05/13/23 10:02 Calculated Osmolality 275 mOsm/kg (285-295) L 05/14/23 06:08 Lactic Acid 0.9 mmol/L (0.5-2.2) 05/13/23 11:34 Calcium 8.7 mg/dL (8.5-10.5) 05/14/23 06:08 Phosphorus 3.3 mg/dL (2.5-4.5) 05/14/23 06:08 Magnesium 1.9 mg/dL (1.7-2.3) 05/14/23 06:08 Total Bilirubin 0.5 mg/dL (0.15-1.2) 05/13/23 10:02 AST 14 U/L (0-40) 05/13/23 10:02 ALT 9 U/L (0-41) 05/13/23 10:02 Alkaline Phosphatase 104 U/L (40-130) 05/13/23 10:02 Troponin T Gen 5 ng/L 45 ng/L (0-15) H 05/13/23 10:02 Troponin T 120 Minute 35.73 ng/L (0-15) H 05/13/23 12:00 Delta Troponin T -9.27 ABS# (0-10) L 05/13/23 12:00 Troponin T Hi Sens 6Hr 29.37 ng/L (0-15) H 05/13/23 16:29 Troponin T Hi Sens 6Hr Delta -15.63 ng/L (0-12) L 05/13/23 16:29 C-Reactive Protein 73.2 mg/L (0.0-4.9) H 05/14/23 06:08 NT-Pro-B Natriuret Pep 36 pg/mL (0-125) 05/13/23 10:02 Total Protein 6.4 g/dL (6.6-8.7) L 05/13/23 10:02 Albumin 3.9 g/dL (3.5-5.2) 05/13/23 10:02 Globulin 2.5 g/dL (1.3-4.6) 05/13/23 10:02 Coronavirus 229E (PCR) Not detected (NOT DETECT) 05/13/23 12:45 Influenza Type A Ag negative (Negative) 05/13/23 12:13 Influenza Type B Ag negative (Negative) 05/13/23 12:13 SARS-CoV-2 (PCR) Not detected (NOT DETECT) 05/13/23 12:45 SARS-CoV-2 Ag (Rapid) negative (Negative) 05/13/23 12:13 Vitals Last Vital Signs Temp 98.5 F 05/15/23 07:13 Pulse 66 05/15/23 07:24 Resp 22 H 05/15/23 07:24 BP 95/59 05/15/23 07:13 Pulse Ox 95 05/15/23 07:24 O2 Del Method Heated High Flow 05/15/23 07:24 O2 Flow Rate 40 05/15/23 08:00 FiO2 40 05/15/23 07:24 Discharge Plan Discharge Patient Disposition: Home Condition: Stable Prescriptions: New doxycycline hyclate 100 mg tablet 100 mg PO BID 3 Days Qty: 6 0RF roflumilast 500 mcg tablet 500 mcg PO DAILY Qty: 90 0RF Continued aspirin 81 mg tablet,delayed release (DR/EC) 81 mg PO DAILY Qty: 90 1RF atorvastatin 80 mg tablet 80 mg PO DAILY Qty: 90 1RF (DME) wheelchair See Rx Instructions .Route .MEDSUPPLY Qty: 1 0RF Rx Instructions: As directed citalopram [Celexa] 40 mg tablet 40 mg PO DAILY Qty: 30 2RF thiamine HCl (vitamin B1) 100 mg tablet 100 mg PO DAILY alendronate 70 mg tablet 70 mg PO Q7D Zyprexa 10 mg tablet 10 mg PO QAM carvedilol 3.125 mg tablet 3.125 mg PO BID folic acid 1 mg tablet 1 mg PO DAILY budesonide 0.5 mg/2 mL suspension for nebulization 0.5 mg inhalation BID Qty: 120 6RF multivitamin Tablet 1 tab PO DAILY furosemide [Lasix] 40 mg Tablet 40 mg PO DAILY PRN (Reason: Edema) cholecalciferol (vitamin D3) See Rx Instructions .ROUTE .COMPLEX Rx Instructions: 125 mcg orally once weekly on Saturday docusate sodium [Colace] 100 mg Capsule 100 mg PO DAILY Changed Combivent Respimat 20-100 mcg/actuation mist 1 puff inhalation Q4H Qty: 4 6RF Rx Instructions: USE 1 INHALATION BY MOUTH EVERY 4 HOURS Breztri Aerosphere 160-9-4.8 mcg/actuation HFA aerosol inhaler 2 inh inhalation BID Qty: 10.7 4RF Discontinued pseudoephedrine-guaifenesin [Mucinex D Maximum Strength] 120-1,200 mg tablet extended release 12 hr 1 tab PO Q12H PRN (Reason: cold symptoms) Qty: 60 2RF Entresto 24-26 mg tablet 1 tab PO BID Discharge Orders: Discharge Order (Routine); Ordered 05/15/23 Ordered By: Jie Raymundo Referrals: Nikita Lopez MD [Primary Care Provider] - ([phone] [facility]) Discharge Diet: Cardiac Discharge Activity: Increase activity as tolerated Patient Instructions: Opioid Safety Discharge Attestations Time Spent in Discharge Care*: greater than 30 min Status at Discharge: Cognitive status at discharge: cognitively intact , Behavioral status at discharge: cooperative , Quality Metrics Clinical Quality Measures [ No reported AMI, CVA or VTE this stay] Coding Level of Care Code Acute Code for g Fwd Diagnoses COPD with acute exacerbation J44.1 Non-ischemic myocardial injury (non-traumatic) I5A Anorexia R63.0 Difficulty clearing secretions CAD (coronary artery disease) I25.10 Severe muscle deconditioning R29.898 Generalized anxiety disorder F41.1
== END 2023-05-15 13:30 | disposition home or self-care (01) | DRG 190 ==
LOC: ER 12:32 → MEDSURG 13:25
PROVIDERS: Admitting Provider Internal Medicine; Emergency Provider Emergency Medicine; PCP Family Medicine; Visit Provider Internal Medicine
DX: J43.2 Centrilobular emphysema (principal); J96.21 Acute and chronic respiratory failure with hypoxia; E46 Unspecified protein-calorie malnutrition; Z68.1 Body mass index [BMI] 19.9 or less, adult; I50.22 Chronic systolic (congestive) heart failure; Z99.81 Dependence on supplemental oxygen; Z66 Do not resuscitate; Z79.82 Long term (current) use of aspirin; I25.10 Atherosclerotic heart disease of native coronary artery without angina pectoris; F41.1 Generalized anxiety disorder; Z87.891 Personal history of nicotine dependence; M16.0 Bilateral primary osteoarthritis of hip; I11.0 Hypertensive heart disease with heart failure; M54.16 Radiculopathy, lumbar region; M81.0 Age-related osteoporosis without current pathological fracture; F25.1 Schizoaffective disorder, depressive type; Z11.52 Encounter for screening for COVID-19
CPT/HCPCS: 36415; 36600; 71045; 71250; 80048; 80053; 82803; 82805; 83036; 83605; 83735; 83880; 84100; 84484; 85025; 85378; 86140; 87426; 87635; 87804; 93005; 94640; 94760; 99285; J0696; J7030; J7626

== ENCOUNTER 2024-01-18 01:06 | Inpatient (IN) | payer MEDICARE, MEDICAID, SELFPAY ==
[2023-08-06 16:27] VITALS: BP 96/57; BMI 15.3
[2024-01-18] VITALS (43 sets, daily range): BP systolic 91–152; BP diastolic 64–109; PULSE 65–138; RESP 14–40; TEMP 36.1–37.3; O2SAT 88–100; BMI 19.3; BMI 17.2
--- NOTE | 2024-01-18 01:07 | ECG_ITS ---
[facility] Test Date: 2024-01-18 Pat Name: Akira Goss Department: Room: Gender: Male Shop Hand: : 1960 Requested By: Korina Pompa Order Number: [id number] Gina MD: Claude Ho M.D. Measurements Intervals [place] Rate: 121 P: 78 DE: 132 QRS: 81 QRSD: 82 T: 62 QT: 303 QTc: 431 Interpretive Statements SINUS TACHYCARDIA ABNORMAL RHYTHM ECG Compared to ECG 05/13/2023 16:14:11 Sinus rhythm no longer present Electronically Signed On 01-19-2024 20:14:48 CDT by Claude Ho M.D. [id number]
--- NOTE | 2024-01-18 01:08 | ED_ITS ---
HPI - SOB/Dyspnea 2 General: Chief Complaint: Shortness of Breath/Dyspnea Stated Complaint: SOB Time Seen by Provider: 01/18/24 01:07 Source: patient and EMS Mode of arrival: EMS Limitations: no limitations History of Present Illness: HPI Narrative: 63-year-old male has extensive history o f COPD CHF states he is having increased shortness of breath tonight EMS states when they arrived he was on 4 L of oxygen and typically wears 2-3 he was in the 70s on 4 L I placed him on CPAP on the way here patient still satting 88% on the CPAP he is tachypneic and in distress only able to speak in 1-2 word sentences he denies any chest pain denies any increasing cough or fever. He had to be intubated in the past for his COPD Associated symptoms: Deny abdominal pain, chest pain, fever(s), nausea or vomiting Review of Systems 2 Const: Denies: fever(s), chills, body aches or change in appetite ENMT: Denies: throat pain or dental pain Card: Denies: chest pain Resp: Reports: dyspnea GI: Denies: abdominal pain, nausea, vomiting or diarrhea Musc: Denies: neck pain or back pain Skin/Breast: Denies: rash Neuro: Denies: headache(s) PFSH ED 2 PFSH: Medical History Enrolled in chronic care management please do not remove from active COPD exacerbation Acute bacterial sinusitis COPD exacerbation Skin breakdown Non-ischemic myocardial injury (non-traumatic) COPD with acute exacerbation Anorexia Difficulty clearing secretions Physical deconditioning CAD (coronary artery disease) On combination antipsychotic drug therapy History of fracture of left hip Bilateral primary osteoarthritis of hip Chronic SI joint pain Lumbar radiculopathy, chronic Back pain Psychiatric care Osteoporosis Severe muscle deconditioning Cachexia Hip fracture Weight loss Prostate cancer screening Hypertension screen Essential hypertension Medication management Unintentional weight loss Vitamin D deficiency Chronic obstructive pulmonary disease Nicotine dependence, cigarettes, uncomplicated Generalized anxiety disorder Schizoaffective disorder, depressive type Social History Smoking and tobacco/nicotine status: former use of tobacco/nicotine Quit status (tobacco/nicotine): has quit using Second hand smoke exposure: Yes Alcohol intake: current Alcohol intake frequency: 3 or more drinks per day Substance/Drug Use: never Lives independently: Yes Household members: spouse Marital status: service: No Current occupational status: disabled Pets and animals: Yes Do you think of yourself as: Straight/Heterosexual Current gender identity: Male Physical Exam 2 Const: COMMON NORMALS: patient oriented x3 GENERAL APPEARANCE: in distress and ill appearing HENMT: COMMON NORMALS: normocephalic and atraumatic HEAD & SCALP: n ormocephalic and atraumatic Eye: COMMON NORMALS: Equal, round and reactive pupils present and EOMs intact bilaterally PUPIL: Yes Equal, round and reactive pupils present Neck/C-Spine: COMMON NORMALS: full ROM and supple Chest: COMMONS NORMALS: normal inspection of the chest and normal palpation of entire chest wall Resp: EFFORT & INSPECTION: No able to speak in complete sentences, Yes tachypneic and Yes labored AUSCULTATION: wheezes Cardio: COMMON NORMALS: regular rhythm and No murmurs present (Cardio) R ATE: tachycardic RHYTHM: regular rhythm GI: COMMON NORMALS: Normal to inspection, nondistended, normoactive bowel sounds present, Soft to palpation, non-tender and no masses PALPATION: Yes Soft to palpation Extremity: COMMON NORMALS: normal to inspection and full ROM Neuro: COMMON NORMALS: patient oriented x3, moves all extremities and no focal motor deficits Psych: COMMON NORMALS: mental status grossly normal, Normal thought process present and cooperative THOUGHT PROCESS: Normal thought process present Skin: COMMON NORMALS: no rashes or lesions noted and no wounds GENERAL SKIN EXAM: no rashes or lesions noted Course 2 Vital Signs: Vital signs: Vital Signs Temperature 99.2 F 01/18/24 01:06 Pulse Rate 118 H 01/18/24 01:40 Respiratory Rate 32 H 01/18/24 01:25 Blood Pressure 152/109 01/18/24 01:06 Pulse Oximetry 92 01/18/24 01:40 Oxygen Delivery Me thod BiPAP 01/18/24 01:25 Fraction of Inspir ed Oxygen 75 01/18/24 01:40 MDM - SOB/Dyspnea Medical Decision Making Patient presents here with increasing shortness of breath COPD exacerbation also likely pneumonia he is hypercapnic he is improving on BiPAP spoke to hospitalist will admit to ICU. Medical Records I reviewed the patient's medical records. Lab Data I reviewed the patient's lab results. 01/18/24 01:10 01/18/24 01:10 Labs/Radiology: Radiology Impressions Chest X-Ray 01/18/24 01:08 IMPRESSION: Increased interstitial opacities in the medial right lung base and left basilar airspace opacities may be chronic or acute. Laboratory Results WBC 21.67 10^3/uL (3.29-11.43) H 01/18/24 01:10 RBC 4.03 10^6/uL (3.85-5.65) 01/18/24 01:10 Hgb 12.80 g/dL (11.27-16.99) 01/18/24 01:10 Hct 39.7 % (37-53) 01/18/24 01:10 MCV 98.5 fl (82-101) 01/18/24 01:10 MCH 31.8 pg (27-33) 01/18/24 01:10 MCHC 32.2 g/dL (30-55) 01/18/24 01:10 RDW 12.1 % (12.1-15.1) 01/18/24 01:10 Plt Count 332 10^3/cmm (157-399) 01/18/24 01:10 MPV 8.9 fL (7.4-10.4) 01/18/24 01:10 Neut % (Auto) 92.9 % 01/18/24 01:10 Lymph % (Auto) 2.3 % 01/18/24 01:10 [place] % (Auto) 3.6 % 01/18/24 01:10 Eos % (Auto) 0.3 % 01/18/24 01:10 Baso % (Auto) 0.3 % 01/18/24 01:10 Neut # (Auto) 20.15 10^3/uL (1.8-7.7) H 01/18/24 01:10 Lymph # (Auto) 0.5 10^3/uL (0.8-4.8) L 01/18/24 01:10 [place] # (Auto) 0.8 10^3/uL (0.2-0.9) 01/18/24 01:10 Eos # (Auto) 0.1 10^3/uL (0.0-0.8) 01/18/24 01:10 Baso # (Auto) 0.1 10^3/uL (0.0-0.1) 01/18/24 01:10 Nucleated RBC % (auto) 0 % 01/18/24 01:10 Nucleated RBCs # 0.0 /100WBC 01/18/24 01:10 Specimen Type Arterial 01/18/24 02:00 Sample Site Radial, left 01/18/24 02:00 ABG pH 7.33 (7.35-7.45) L 01/18/24 02:00 ABG pCO2 74.1 mmHg (35-45) H* 01/18/24 02:00 ABG pO2 68.7 mmHg (80.0-100.0) L 01/18/24 02:00 ABG PO2/FiO2 Ratio 0 01/18/24 02:00 ABG HCO3 38.7 mmol/L (22-26) H 01/18/24 02:00 ABG O2 Saturation 92.9 01/18/24 02:00 ABG Base Excess 9.8 mmol/L (-2.0-2.0) H 01/18/24 02:00 Mariusz Test Pos 01/18/24 02:00 A-a O2 Gradient 49.0 mmHg (5-10) H 01/18/24 02:00 Hematocrit 39.4 % (42-52) L 01/18/24 02:00 Hgb O2 Saturation 91.6 % (95-100) L 01/18/24 02:00 Carboxyhemoglobin 1.1 %THgb (0.4-20.1) 01/18/24 02:00 Methemoglobin 0.4 % (0.4-1.5) 01/18/24 02:00 Total Hemoglobin 12.9 g/dL (14-18) L 01/18/24 02:00 Sodium 131.0 mmol/L (131-143) 01/18/24 02:00 Potassium 5.1 mmol/L (3.5-5.0) H 01/18/24 02:00 Glucose 116.0 mg/dL (70-115) H 01/18/24 02:00 Ionized Calcium 1.1 mmol/L (1.1-1.4) 01/18/24 02:00 O2 Delivery Device Bipap 01/18/24 02:00 FiO2 75.0 % 01/18/24 02:00 Cane Flume Feeding Machine Operator ID [email or web address] 01/18/24 02:00 Sodium 129 mmol/L (136-145) L 01/18/24 01:10 Potassium 5.2 mmol/L (3.5-5.1) H 01/18/24 01:10 Chloride 85 mmol/L (98-107) L 01/18/24 01:10 Carbon Dioxide 36 mmol/L (22-29) H 01/18/24 01:10 Anion Gap 13.2 (5-19) 01/18/24 01:10 BUN 11 mg/dL (8-23) 01/18/24 01:10 Creatinine 0.4 mg/dL (0.7-1.2) L 01/18/24 01:10 GFR Calculation 215.9 mL/min (90-130) H 01/18/24 01:10 Glucose 136 mg/dL (65-115) H 01/18/24 01:10 Calculated Osmolality 269 mOsm/kg (285-295) L 01/18/24 01:10 Lactic Acid 1.3 mmol/L (0.5-2.2) 01/18/24 01:10 Calcium 8.3 mg/dL (8.5-10.5) L 01/18/24 01:10 Total Bilirubin 0.5 mg/dL (0.15-1.2) 01/18/24 01:10 AST 17 U/L (0-40) 01/18/24 01:10 ALT 19 U/L (0-41) 01/18/24 01:10 Alkaline Phosphatase 74 U/L (40-130) 01/18/24 01:10 NT-Pro-B Natriuret Pep < 36 pg/mL (0-125) 01/18/24 01:10 Total Protein 7.0 g/dL (6.6-8.7) 01/18/24 01:10 Albumin 4.0 g/dL (3.5-5.2) 01/18/24 01:10 Globulin 3.0 g/dL (1.3-4.6) 01/18/24 01:10 All radiology interpretation(s) finalized by discharge EKG Data EKG 1: I personally reviewed and interpreted this EKG as follows: EKG Interpretation Date: 01/18/24 EKG interpretation time: :22 Interpretation: sinus tach hr [address] or t wave abnormalities qrs 82 Critical Care Time 2 Critical Care Time: Critical Care Time: Yes Total Critical Care Time: 45 Attestation: The high probability of a clinically significant, sudden or life threatening deterioration of the patient's resp system(s) required my full and direct attention, intervention and personal management. The critical care time is as shown. This time is in addition to time spent performing any reported procedures but includes the following: [x] Data and vital sign review and interpretation [x] Patient assessment, examination and intervention [x] Documentation [x] Medication orders and management Discharge Plan Discharge Patient Disposition: Admitted As Inpatient Clinical Impression: Acute exacerbation of chronic obstructive airways disease, Left lower lobe pulmonary infiltrate, Acute respiratory failure with hypoxia and hypercapnia Condition: Stable Prescriptions: No Action aspirin 81 mg tablet,delayed release (DR/EC) 81 mg PO DAILY Qty: 90 1RF atorvastatin 80 mg tablet 80 mg PO DAILY Qty: 90 1RF (DME) wheelchair See Rx Instructions .Route .MEDSUPPLY Qty: 1 0RF Rx Instructions: As directed ipratropium-albuterol 0.5 mg-3 mg(2.5 mg base)/3 mL solution for nebulization 3 ml inhalation Q8H calcium carbonate [Calcium 600] 600 mg calcium (1,500 mg) tablet 600 mg PO DAILY prednisone 20 mg tablet 20 mg PO DAILY alendronate 70 mg tablet PO albuterol sulfate [Ventolin HFA] 90 mcg/actuation HFA aerosol inhaler 2 puff inhalation Q6H PRN Atrovent HFA 17 mcg/actuation HFA aerosol inhaler 2 puff inhalation TID fluticasone furoate-vilanterol [Breo Ellipta] 100-25 mcg/dose blister with device 1 inh inhalation DAILY doxycycline hyclate 100 mg tablet 100 mg PO BID 10 Days Qty: 20 0RF thiamine HCl (vitamin B1) 100 mg tablet 100 mg PO DAILY prednisone 5 mg tablet 5 mg PO BID Qty: 60 3RF dimethicone 5 % cream 1 applic topical QID Qty: 118 2RF carvedilol 3.125 mg tablet See Rx Instructions .ROUTE .COMPLEX Qty: 90 3RF Dose Instruction: TAKE 1 TABLET BY MOUTH EVERY 12 HOURS WITH A MEAL/FOOD Rx Instructions: TAKE 1 TABLET BY MOUTH EVERY 12 HOURS WITH A MEAL/FOOD levalbuterol HCl 1.25 mg/3 mL solution for nebulization 1.25 mg inhalation Q6H Qty: 90 0RF citalopram [Celexa] 40 mg tablet 40 mg PO DAILY Qty: 30 2RF Zyprexa 10 mg tablet 10 mg PO QAM Qty: 30 2RF azithromycin 250 mg tablet 250 mg PO .COMPLEX Qty: 18 1RF Rx Instructions: 250 mg orally Take 1 Tab 3 times a week; Saturday, Saturday and Fridays; folic acid 1 mg tablet 1 mg PO DAILY multivitamin Tablet 1 tab PO DAILY furosemide [Lasix] 40 mg Tablet 40 mg PO DAILY PRN (Reason: Edema) cholecalciferol (vitamin D3) See Rx Instructions .ROUTE .COMPLEX Rx Instructions: 125 mcg orally once weekly on Saturday docusate sodium [Colace] 100 mg Capsule 100 mg PO DAILY Referrals: TAMIA Greco, HAT MENDER [Primary Care Provider] - Coding Level of Care Code ED [employer] Physics Teacher for Britney Strange
--- NOTE | 2024-01-18 01:08 | XRR_ITS ---
PROCEDURE INFORMATION: Exam: XR Chest Exam date and time: 01/18/2024 1:09 AM Age: 63 years old Clinical indication: Shortness of breath; Patient HX: SOB with hypoxia. History of emphysema. TECHNIQUE: Imaging protocol: Radiologic exam of the chest. Views: 1 view. COMPARISON: CT chest wo con [id number] 05/13/2023 1:32 PM FINDINGS: Lungs: Extensive chronic lung changes throughout the bilateral lung levin limiting evaluation for acute superimposed pathology. Increased interstitial opacities in the medial right lung base and left basilar airspace opacities may be chronic or acute. Pulmonary hyperinflation. Pleural spaces: Stable left apical pleural thickening. No pneumothorax Heart/Mediastinum: The cardiomediastinal silhouette is within normal limits. Bones/joints: No acute osseous abnormalities are seen. XR/XR chest 1V portable [id number] IMPRESSION: Increased interstitial opacities in the medial right lung base and left basilar airspace opacities may be chronic or acute.
--- NOTE | 2024-01-18 01:14 | PC.NURSE ---
Pt. placed on BiPap on arrival to ER. Pt. O2 saturation at 96%, up from 88%
[2024-01-18 01:22] LABS: Basophils # 0.1 10^3/uL (0.0-0.1); Basophils % 0.3 %; Eosinophils # 0.1 10^3/uL (0.0-0.8); Eosinophils % 0.3 %; Hematocrit 39.7 % (37-53); Lymphocytes # 0.5 10^3/uL (0.8-4.8); Lymphocytes % 2.3 %; Mean Corpuscular HGB Conc 32.2 g/dL (30-55); Mean Corpuscular Hemoglobin 31.8 pg (27-33); Mean Corpuscular Volume 98.5 fl (82-101); Mean Platelet Volume 8.9 fL (7.4-10.4); Monocytes # 0.8 10^3/uL (0.2-0.9); Monocytes % 3.6 %; Neutrophils # 20.15 10^3/uL (1.8-7.7); Neutrophils % 92.9 %; Nucleated Red Blood Cells % 0 %; Platelet Count 332 10^3/cmm (157-399); Red Blood Count 4.03 10^6/uL (3.85-5.65); Red Cell Distribution Width 12.1 % (12.1-15.1); White Blood Count 21.67 10^3/uL (3.29-11.43)
[2024-01-18 01:22] LABS: ABG PCO2 78.7 mmHg (35-45); Base Excess ABG 9.2 mmol/L (-2.0-2.0); Blood Gas Sample Site Brachial, right; Blood Gas Sample Type Arterial; Carboxyhemoglobin 1.2 %THgb (0.4-20.1); HCO3 ABG 38.7 mmol/L (22-26); HGB O2 Sat 92.6 % (95-100); Methemoglobin 0.2 % (0.4-1.5); Oxygen Device BIPAP; PO2 ABG 74.7 mmHg (80.0-100.0); PO2 FiO2 Ratio Arterial Blood 0; Total Hemoglobin 13.1 g/dL (14-18)
[2024-01-18] MEDS: albuterol 2.5 mg/3 mL Neb 5 MG INHALATION (01:25)
[2024-01-18 01:41] LABS: Lactic Sepsis W/Reflex 1.3 mmol/L (0.5-2.2)
[2024-01-18 01:46] LABS: Alanine Aminotransferase 19 U/L (0-41); Alkaline Phosphatase 74 U/L (40-130); Anion Gap 13.2 (5-19); Aspartate Amino Transferase 17 U/L (0-40); Blood Urea Nitrogen 11 mg/dL (8-23); Calcium 8.3 mg/dL (8.5-10.5); Carbon Dioxide 36 mmol/L (22-29); Chloride 85 mmol/L (98-107); Creatinine Clr Calc Pharmacy 78.1932; Glomerular Filtration Rate 215.9 mL/min (90-130); Glucose 136 mg/dL (65-115); NT Pro B Type Natriuretic Pept < 36 pg/mL (0-125); Osmolality Calculated 269 mOsm/kg (285-295); Potassium 5.2 mmol/L (3.5-5.1); Sodium 129 mmol/L (136-145); Total Bilirubin 0.5 mg/dL (0.15-1.2)
[2024-01-18] MEDS: sodium chloride 0.9% 1,000 ML 999 ML IV ×2 (01:51→02:11)
[2024-01-18 02:09] LABS: ABG PH Result 7.33 (7.35-7.45); Arterial Blood Gas Hematocrit 39.4 % (42-52); Base Excess ABG 9.8 mmol/L (-2.0-2.0); Blood Gas Allen Test Pos; Blood Gas Sample Site Radial, left; Blood Gas Sample Type Arterial; Carboxyhemoglobin 1.1 %THgb (0.4-20.1); HCO3 ABG 38.7 mmol/L (22-26); HGB O2 Sat 91.6 % (95-100); Ionized Calcium Level - ABG 1.1 mmol/L (1.1-1.4); Methemoglobin 0.4 % (0.4-1.5); Oxygen Device BIPAP; Oxygen Saturation ABG 92.9; PO2 ABG 68.7 mmHg (80.0-100.0); PO2 FiO2 Ratio Arterial Blood 0; Potassium Level - ABG 5.1 mmol/L (3.5-5.0); Total Hemoglobin 12.9 g/dL (14-18)
[2024-01-18 02:10] LABS: ABG PCO2 74.1 mmHg (35-45)
[2024-01-18] MEDS: cefTRIAXone 1,000 MG in sodium chloride 0.9% (plus) 50 ML 100 MG IV (02:10)
[2024-01-18] MEDS: azithromycin 500 MG in sodium chloride 0.9% 250 ML 250 MG IV (02:11)
--- NOTE | 2024-01-18 02:19 | P.HP_ITS ---
Providers/Chief Complaint 2 Primary Care Provider: GUILLERMINA Grady Chief Complaint: SOB History of Present Illness Akira Goss Jr is a 63 year old male with past medical history significant for COPD with chronic hypoxic respiratory failure on 3 to 4 L baseline, generalized anxiety disorder, tobacco use disorder in remission, coronary artery disease, osteoarthritis, hypertension, and schizoaffective disorder who presented emergency department via EMS with respiratory distress. Patient seen and evaluated in ED room 10. He is on BiPAP. He has severe conversational dyspnea which does limit history somewhat. He reports he was in his usual state of health until Saturday evening when his breathing started getting worse. Symptoms continued to worsen prompting him to call EMS. He describes his symptoms as shortness of breath and inability to catch his breath. He denies changes in cough. Denies fevers or chills. Endorses generalized malaise and weakness. Exertion worsens symptoms. Rest improves. Patient reportedly recently had a stay at [facility] where he required intubation and mechanical ventilation. Discussed CODE STATUS with patient, he is okay to be intubated should he worsen and require it. Attempted to review complete medical history with patient. Was unable to get past surgical history or family history due to severe dyspnea. Review of Systems 2 Narrative: A complete review of systems was obtained and is negative except as stated in HPI. Medications/Allergies Home Medications Medication Instructions Recorded Confirmed Last Taken Type thiamine HCl (vitamin B1) 100 mg 100 mg PO DAILY 02/01/22 01/09/24 05/12/23 History tablet aspirin 81 mg tablet,delayed 81 mg PO DAILY #90 tabs 02/22/22 01/09/24 05/12/23 Rx release atorvastatin 80 mg tablet 80 mg PO DAILY #90 tabs 02/22/22 01/09/24 05/12/23 Rx wheelchair #1 ea 01/10/23 01/09/24 Unknown Rx cholecalciferol (vitamin D3) See Rx Instructions .Route .COMPLEX 03/15/23 01/09/24 05/10/23 History docusate sodium 100 mg capsule 100 mg PO DAILY 03/15/23 01/09/24 05/12/23 History (Colace) furosemide 40 mg tablet (Lasix) 40 mg PO DAILY PRN Edema 03/15/23 01/09/24 05/12/23 History multivitamin 1 tab PO DAILY 08/12/0201/09/24 05/12/23 History folic acid 1 mg tablet 1 mg PO DAILY 05/13/23 01/09/24 05/12/23 History carvedilol 3.125 mg tablet See Rx Instructions .Route 06/18/23 01/09/24 Unknown Rx .COMPLEX #90 tabs dimethicone 5 % topical cream 1 applic topical QID #118 mL 09/09/23 01/09/24 Unknown Rx prednisone 5 mg tablet 5 mg PO BID #60 tabs 10/02/23 01/09/24 Unknown Rx calcium carbonate (Calcium 600) 600 mg PO DAILY 11/20/23 01/09/24 Unknown History ipratropium 0.5 mg-albuterol 3 mg 3 ml inhalation Q8H 11/20/23 01/09/24 Unknown History (2.5 mg base)/3 mL nebulization soln levalbuterol HCl 1.25 mg/3 mL 1.25 mg (3 mL) inhalation Q6H #90 11/27/23 01/09/24 Unknown Rx solution for nebulization mL citalopram 40 mg tablet (Celexa) 40 mg PO DAILY #30 tabs 12/23/23 01/09/24 Unknown Rx olanzapine 10 mg tablet (Zyprexa) 10 mg PO QAM #30 tabs 12/23/23 01/09/24 Unknown Rx albuterol sulfate 90 mcg/actuation 2 puff inhalation Q6H PRN 12/27/23 01/09/24 Unknown History aerosol inhaler (Ventolin HFA) alendronate 70 mg tablet mg PO 12/27/23 01/09/24 Unknown History doxycycline hyclate 100 mg tablet 100 mg PO BID 10 days #20 tabs 12/27/23 01/09/24 Unknown Rx fluticasone furoate 100 1 inh inhalation DAILY 12/27/23 01/09/24 Unknown History mcg-vilanterol 25 mcg/dose inhalation powder (Breo Ellipta) ipratropium bromide 17 2 puff inhalation TID 12/27/23 01/09/24 Unknown History mcg/actuation HFA aerosol inhaler (Atrovent HFA) prednisone 20 mg tablet 20 mg PO DAILY 12/27/23 01/09/24 Unknown History azithromycin 250 mg tablet 250 mg PO .COMPLEX #18 tabs 01/13/24 Unknown Rx Allergies Allergy/AdvReac Type Severity Reaction Status Date / Time No Known Allergies Allergy Verified 01/09/24 13:17 PFSH Acute 2 PFSH: Medical History CAD (coronary artery disease) Urinary retention Transient tics Hyponatremia Chronic back pain Hip pain Encounter for smoking cessation counseling Chronic obstructive pulmonary disease Enrolled in chronic care management please do not remove from active COPD exacerbation Acute bacterial sinusitis COPD exacerbation Skin breakdown Non-ischemic myocardial injury (non-traumatic) COPD with acute exacerbation Anorexia Difficulty clearing secretions Physical deconditioning On combination antipsychotic drug therapy History of fracture of left hip Bilateral primary osteoarthritis of hip Chronic SI joint pain Lumbar radiculopathy, chronic Psychiatric care Osteoporosis Severe muscle deconditioning Cachexia Hip fracture Weight loss Prostate cancer screening Essential hypertension Medication management Unintentional weight loss Vitamin D deficiency Nicotine dependence, cigarettes, uncomplicated Generalized anxiety disorder Schizoaffective disorder, depressive type Social History Smoking and tobacco/nicotine status: former use of tobacco/nicotine Quit status (tobacco/nicotine): has quit using Second hand smoke exposure: Yes Alcohol intake: current Alcohol intake frequency: 3 or more drinks per day Substance/Drug Use: never Lives independently: Yes Household members: spouse Marital status: service: No Current occupational status: disabled Pets and animals: Yes Do you think of yourself as: Straight/Heterosexual Current gender identity: Male Vitals/I&O/Wt Last Vital Signs Temp 99.2 F 01/18/24 01:06 Pulse 118 H 01/18/24 01:40 Resp 32 H 01/18/24 01:25 BP 152/109 01/18/24 01:06 Pulse Ox 92 01/18/24 01:40 O2 Del Method BiPAP 01/18/24 01:25 FiO2 75 01/18/24 01:40 01/17/24 01/17/24 01/18/24 14:59 22:59 06:59 Intake Total 333 / 333 Balance 333 / 333 Weight last 48 hrs Weight 54.431 kg Physical Exam 2 Narrative: General: Patient is awake. Frail-appearing. Head: Normocephalic. Atraumatic. EOM intact. Neck: No JVD. Cardiovascular: Tachycardic. No rubs or gallops. No murmurs. Rhythm is regular. Lungs: Very poor air movement bilateral lung levin. Using accessory muscles to breathe. Tachypneic. Moderate to severe respiratory distress. Skin: No jaundice. No rashes. Abdomen: Normal bowel sounds, abdomen soft and nontender. Extremities: No cyanosis or clubbing. Musculoskeletal: No swollen or erythematous joints. Neurological: Cranial nerves II through XII grossly intact. No myoclonus. Data 01/18/24 01:10 01/18/24 01:10 A&P Assessment and plan (1) Chronic hypercapnic respiratory failure: Acute on chronic combined hypoxic hypercapnic respiratory failure requiring noninvasive mechanical ventilation Baseline oxygen needs 3 to 4 L while awake Follows with pulmonary, Dr. Johnson Uses chest vest at home Treat underlying COPD and pneumonia as detailed below Continue BiPAP treatment, titrate BiPAP as needed Serial ABGs Encourage pulmonary toilet Patient is okay with intubation if necessary (2) Community acquired pneumonia: Infiltrates noted on plain films Leukocytosis noted on admission 21.67 Procalcitonin and CRP backordered Start ceftriaxone/azithromycin, low threshold for broadening Bacterial antigens requested (3) Acute exacerbation of chronic obstructive airways disease: Patient on chronic prednisone at home Start IV Solu-Medrol Nebulized Pulmicort Scheduled DuoNebs (4) Schizoaffective disorder, depressive type: Continue home olanzapine (5) Generalized anxiety disorder: Continue home Celexa (6) CAD (coronary artery disease): Continue home aspirin Continue home statin Plan DVT prophylaxis: Lovenox CODE STATUS: Full code Attestations 2 Medical Necessity Statement*: Patient presents with shortness of breath, found to have acute on chronic mixed respiratory failure requiring noninvasive mechanical ventilation with expected hospitalization to cross 2 midnights for continued respiratory support, IV steroids, IV antibiotics, serial breathing treatments, monitoring of labs, and supportive care. Coding Level of Care Code Acute Code for [facility] Fwd Diagnoses Chronic hypercapnic respiratory failure J96.12 Community acquired pneumonia J18.9 Acute exacerbation of chronic obstructive airways disease J44.1 Schizoaffective disorder, depressive type F25.1 Generalized anxiety disorder F41.1 CAD (coronary artery disease) I25.10
[2024-01-18 03:20] LABS: C Reactive Protein 6.4 mg/L (0.0-4.9)
[2024-01-18 03:27] LABS: Procalcitonin 0.53 ng/mL (0-0.5)
[2024-01-18] MEDS: methylPREDNISolone sod succ 40 mg/mL INJ IVP ×4 (04:22→21:28)
[2024-01-18] MEDS: ipratropium-albuterol 3 mL Neb INHALATION ×6 (04:25→23:51)
[2024-01-18] MEDS: OLANZapine 10 mg TABLET PO (05:58)
[2024-01-18] MEDS: budesonide 0.5 mg/2 mL Neb INHALATION ×2 (08:02→20:12)
[2024-01-18] MEDS: citalopram 20 mg Tablet 40 MG PO (09:50)
[2024-01-18] MEDS: thiamine 100 mg Tablet PO (09:50)
[2024-01-18] MEDS: atorvastatin 40 mg Tablet 80 MG PO (09:50)
[2024-01-18] MEDS: aspirin 81 mg EC Tablet PO (09:50)
[2024-01-18] MEDS: carvedilol 6.25 mg Tablet 3.125 MG PO ×2 (09:50→17:42)
[2024-01-18] MEDS: folic acid 1 mg Tablet PO (09:50)
[2024-01-18] MEDS: calcium carbonate 500 mg Chew Tablet PO (09:50)
[2024-01-18] MEDS: LORazepam 0.5 mg Tablet PO (12:28)
--- NOTE | 2024-01-18 15:53 | PM.MISC ---
Miscellaneous Note Note: Seen today. Patient currently on BiPAP. Parents at bedside. Continue management as per history physical document.
--- NOTE | 2024-01-18 18:07 | PC.NURSE ---
Mr Goss resting with eyes closed so well, he did not wake up for dinner. Resp. even and unlabored 3lpm/NC.
--- NOTE | 2024-01-18 19:20 | PC.NURSE ---
Shift summary: Pt rested in bed today. He does sit on side of bed or stands to use urinal. he is slightly unsteady when he stands. He hold the bed rail to steady himself. He was using BiPa this am, FIO2 decreased to 40%. Then he was switched to nasal cannula at 6lpm. It has been titrated down to 3lpm/NC this evening. He wears 2-3 lpm/NC at home. Sinus rhythm noted on monitor. Clear liquid diet started, per Dr Scott it is fine for him to drink Cola. He had multiple visitors mid day. He was started on CIWA as he reported to staff this am he drank 5 beers a day. His scores have been less than 5. He did say he was having some anxiety around noon and Dr Scott gave order for one time 0.5 Ativan. He did say that helped alot. HIs urine output was 1800ml.
[2024-01-18] MEDS: enoxaparin 40 mg/0.4 mL Syringe SUBCUT (21:28)
[2024-01-19] VITALS (40 sets, daily range): BP systolic 96–134; BP diastolic 65–90; PULSE 65–89; RESP 16–32; TEMP 36.1–36.9; O2SAT 87–99; BMI 16.0
[2024-01-19] MEDS: azithromycin 500 MG in sodium chloride 0.9% 250 ML 250 MG IV (02:28)
[2024-01-19] MEDS: cefTRIAXone 1,000 MG in sodium chloride 0.9% (plus) 50 ML 100 MG IV (02:29)
[2024-01-19] MEDS: methylPREDNISolone sod succ 40 mg/mL INJ IVP ×4 (03:45→21:59)
[2024-01-19] MEDS: OLANZapine 5 mg TABLET 10 MG PO (05:17)
[2024-01-19 05:48] LABS: Basophils % 0.1 %; Hematocrit 32.5 % (37-53); Lymphocytes # 0.4 10^3/uL (0.8-4.8); Lymphocytes % 2.6 %; Mean Corpuscular HGB Conc 32.3 g/dL (30-55); Mean Corpuscular Hemoglobin 31.9 pg (27-33); Mean Corpuscular Volume 98.8 fl (82-101); Mean Platelet Volume 9.5 fL (7.4-10.4); Monocytes # 0.4 10^3/uL (0.2-0.9); Monocytes % 3.1 %; Neutrophils # 13.44 10^3/uL (1.8-7.7); Neutrophils % 93.6 %; Nucleated Red Blood Cells % 0 %; Platelet Count 222 10^3/cmm (157-399); Red Blood Count 3.29 10^6/uL (3.85-5.65); White Blood Count 14.35 10^3/uL (3.29-11.43)
[2024-01-19 06:06] LABS: Anion Gap 10.8 (5-19); Blood Urea Nitrogen 6 mg/dL (8-23); Calcium 8.8 mg/dL (8.5-10.5); Carbon Dioxide 36 mmol/L (22-29); Chloride 94 mmol/L (98-107); Creatinine Clr Calc Pharmacy 58.5938; Glomerular Filtration Rate 300.9 mL/min (90-130); Glucose 141 mg/dL (65-115); Osmolality Calculated 284 mOsm/kg (285-295); Potassium 3.8 mmol/L (3.5-5.1); Sodium 137 mmol/L (136-145)
[2024-01-19] MEDS: ipratropium-albuterol 3 mL Neb INHALATION ×5 (08:07→23:43)
[2024-01-19] MEDS: budesonide 0.5 mg/2 mL Neb INHALATION ×2 (08:07→19:52)
[2024-01-19] MEDS: folic acid 1 mg Tablet PO (08:13)
[2024-01-19] MEDS: citalopram 20 mg Tablet 40 MG PO (08:13)
[2024-01-19] MEDS: carvedilol 6.25 mg Tablet 3.125 MG PO ×2 (08:13→16:58)
[2024-01-19] MEDS: calcium carbonate 500 mg Chew Tablet PO (08:13)
[2024-01-19] MEDS: aspirin 81 mg EC Tablet PO (08:14)
[2024-01-19] MEDS: thiamine 100 mg Tablet PO (08:14)
[2024-01-19] MEDS: atorvastatin 40 mg Tablet 80 MG PO (08:14)
--- NOTE | 2024-01-19 10:57 | PM.PN ---
Subjective Subjective: on nc this am says he feels better wbc [id number] Vitals/I&O/Wt Last Vital Signs Temp 97.8 F 01/19/24 08:00 Pulse 74 01/19/24 09:30 Resp 21 H 01/19/24 09:30 BP 121/76 01/19/24 09:30 Pulse Ox 94 01/19/24 09:30 O2 Del Method Nasal Cannula 01/19/24 08:00 O2 Flow Rate 3 01/19/24 08:00 FiO2 40 01/19/24 03:00 01/18/24 01/19/24 01/19/24 22:59 06:59 14:59 Intake Total 250 / 800 540 / 1340 Output Total 750 / 2200 250 / 2450 Balance -500 / -1400 290 / -1110 Weight last 48 hrs Weight 45 kg Weight 48.5 kg Weight 54.431 kg Physical Exam Narrative: Cachectic, malnourished AOx3 Pleasant and cooperative Nonfocal neuro exam Thin extremities Cachectic malnourishment S1, S2 3l NC Data 01/19/24 05:19 01/19/24 05:19 Micro: Microbiology 01/18/24 02:07 Blood Culture - Preliminary Blood NEGATIVE TO DATE 01/18/24 02:00 Blood Culture - Preliminary Blood NEGATIVE TO DATE A&P Assessment and plan (1) Chronic hypercapnic respiratory failure: Acute on chronic combined hypoxic hypercapnic respiratory failure requiring noninvasive mechanical ventilation Baseline oxygen needs 3 to 4 L while awake Follows with pulmonary, Dr. Johnson Uses chest vest at home Treat underlying COPD and pneumonia as detailed below Continue BiPAP treatment, titrate BiPAP as needed Serial ABGs Encourage pulmonary toilet Patient is okay with intubation if necessary (2) Community acquired pneumonia: Infiltrates noted on plain films Leukocytosis noted on admission 21.67 Procalcitonin and CRP backordered Start ceftriaxone/azithromycin, low threshold for broadening Bacterial antigens requested (3) Acute exacerbation of chronic obstructive airways disease: Patient on chronic prednisone at home Start IV Solu-Medrol Nebulized Pulmicort Scheduled DuoNebs (4) Schizoaffective disorder, depressive type: Continue home olanzapine (5) Generalized anxiety disorder: Continue home Celexa (6) CAD (coronary artery disease): Continue home aspirin Continue home statin Plan DVT prophylaxis: Lovenox CODE STATUS: Full code 01/18 - transfer to [facility] [place] continue bipap as needed - continue solumedrol , cef + azt - pT consult - home o2 eval at discharge. Attestations Medical Necessity Statement*: Patient presents with shortness of breath, found to have acute on chronic mixed respiratory failure requiring noninvasive mechanical ventilation with expected hospitalization to cross 2 midnights for continued respiratory support, IV steroids, IV antibiotics, serial breathing treatments, monitoring of labs, and supportive care. Diagnoses Chronic hypercapnic respiratory failure J96.12 Community acquired pneumonia J18.9 Acute exacerbation of chronic obstructive airways disease J44.1 Schizoaffective disorder, depressive type F25.1 Generalized anxiety disorder F41.1 CAD (coronary artery disease) I25.10
[2024-01-19] MEDS: enoxaparin 40 mg/0.4 mL Syringe SUBCUT (21:59)
[2024-01-20] VITALS (8 sets, daily range): BP systolic 108–116; BP diastolic 69–87; PULSE 67–78; RESP 16–21; TEMP 36.5–36.8; O2SAT 95–99
[2024-01-20] MEDS: azithromycin 500 MG in sodium chloride 0.9% 250 ML 250 MG IV (02:40)
[2024-01-20] MEDS: cefTRIAXone 1,000 MG in sodium chloride 0.9% (plus) 100 ML 200 MG IV (02:41)
[2024-01-20] MEDS: ipratropium-albuterol 3 mL Neb INHALATION ×3 (03:12→11:16)
[2024-01-20] MEDS: methylPREDNISolone sod succ 40 mg/mL INJ IVP ×2 (03:27→11:16)
[2024-01-20 04:39] LABS: Basophils % 0.1 %; Hematocrit 35.1 % (37-53); Lymphocytes # 0.4 10^3/uL (0.8-4.8); Lymphocytes % 4.5 %; Mean Corpuscular HGB Conc 30.2 g/dL (30-55); Mean Corpuscular Hemoglobin 31.4 pg (27-33); Mean Corpuscular Volume 103.8 fl (82-101); Mean Platelet Volume 9.3 fL (7.4-10.4); Monocytes # 0.4 10^3/uL (0.2-0.9); Monocytes % 5.1 %; Neutrophils # 7.79 10^3/uL (1.8-7.7); Neutrophils % 89.6 %; Nucleated Red Blood Cells % 0 %; Platelet Count 250 10^3/cmm (157-399); Red Blood Count 3.38 10^6/uL (3.85-5.65); Red Cell Distribution Width 11.9 % (12.1-15.1); White Blood Count 8.69 10^3/uL (3.29-11.43)
[2024-01-20 04:55] LABS: Blood Urea Nitrogen 8 mg/dL (8-23); Calcium 8.3 mg/dL (8.5-10.5); Carbon Dioxide 34 mmol/L (22-29); Chloride 97 mmol/L (98-107); Creatinine Clr Calc Pharmacy 58.5938; Glomerular Filtration Rate 300.9 mL/min (90-130); Glucose 127 mg/dL (65-115); Osmolality Calculated 288 mOsm/kg (285-295); Sodium 139 mmol/L (136-145)
[2024-01-20 04:57] LABS: Anion Gap 12.1 (5-19); Potassium 4.1 mmol/L (3.5-5.1)
[2024-01-20] MEDS: OLANZapine 5 mg TABLET 10 MG PO (05:29)
[2024-01-20] MEDS: budesonide 0.5 mg/2 mL Neb INHALATION (07:50)
[2024-01-20] MEDS: atorvastatin 40 mg Tablet 80 MG PO (08:52)
[2024-01-20] MEDS: carvedilol 6.25 mg Tablet 3.125 MG PO (08:52)
[2024-01-20] MEDS: thiamine 100 mg Tablet PO (08:52)
[2024-01-20] MEDS: citalopram 20 mg Tablet 40 MG PO (08:52)
[2024-01-20] MEDS: calcium carbonate 500 mg Chew Tablet PO (08:53)
[2024-01-20] MEDS: folic acid 1 mg Tablet PO (08:58)
[2024-01-20] MEDS: aspirin 81 mg EC Tablet PO (08:58)
--- NOTE | 2024-01-20 10:04 | PC.CHAP ---
Pastoral Care Encounter/Spiritual Assessment Type of Contact [] Declined garbage stoker visit [] Patient/Family/Request visit [] Outpatient visit [] Follow-up visit [] Physician referral [] Code/Alert [x] Routine visit [] Staff referral [] Actively dying [] Patient sleeping [] Family support [] [] Out of room [] Palliative care [] [] Receiving care in room [] Pre-surgical visit [] Trauma [] Long length of stay [] ICU visit [] Other: Relational/Emotional Strength [x] Patient feels connected with others/family/visitors/staff [] Distress [] Loneliness/isolation [] Abandonment Spirituality of Patient [x] Person of Jessica [] Attends Oriental Orthodox of their Jessica [x] Believes in Prayer [] Reads Bible or Lutheran materials [] There are Spiritual issues to be addressed [employer] Skimmer Interventions []x Prayer [x] Active listening [] Non-anxious presence [] Spiritual/emotional support [] Crisis/trauma care [] Spiritual counseling [] Bereavement support [] Provided bereavement packet [] Provided Bible/devotional materials [] Provided toy/stuffed animal, coloring book to patient or family member [] Provided Communion [] Anointing/[place] [] Salvation [x] Completed spiritual assessment [] Other: x Impact on Illness or Injury [] Angry [] Fearful [] Anxious [] Often cries [] Exhaustion [] Unable to work [] Unable to attend yazidism [] Unable to walk/stand [] Unable to read [] Unable to drive [] Unable to eat/drink [] Unable to sleep [] Unable to be with family [] Patient intubated [] Other: Summary Time spent with patient 5 min
[2024-01-20 10:08] LABS: Chol HDL Ratio 1.66 mg/dL (1.0-5.00); Cholesterol 141 mg/dL (0-200); HDL Cholesterol 85 mg/dL (60-100); Iron 58 ug/dL (59-158); LDL Cholesterol Calculated 44 mg/dL (50-129); Percent Saturation 28.2 % (20-50); Thyroid Stimulating Hormone 0.13 uIU/mL (0.27-4.20); Total Iron Binding Capacity 205 mcg/dl; Triglycerides 61 mg/dL (0-150); Unsaturated Iron Binding 147 ug/dL (112-347); VLDL Cholestrol Calculation 12 mg/dL (0-30); Vitamin B12 436 pg/mL (232-1245)
--- NOTE | 2024-01-20 10:32 | PM.DCS ---
Discharge Providers Date of Admission: 01/18/24 02:15 Date of Discharge: January 20, 2024 Attending Provider at Admission: Leandro Plummer MD Attending Provider at Discharge: Marc Herrera MD Primary Care Provider: GUILLERMINA Grady Diagnoses at Discharge Discharge Diagnosis (1) Chronic hypercapnic respiratory failure: Status: Acute (2) Community acquired pneumonia: Status: Acute (3) Acute exacerbation of chronic obstructive airways disease: Status: Acute (4) Schizoaffective disorder, depressive type: Status: Acute (5) Generalized anxiety disorder: Status: Acute (6) CAD (coronary artery disease): Status: Acute Reason for Visit Reason for Visit: SOB Brief History: History as per HPI: Akira Goss Jr is a 63 year old male with past medical history significant for COPD with chronic hypoxic respiratory failure on 3 to 4 L baseline, generalized anxiety disorder, tobacco use disorder in remission, coronary artery disease, osteoarthritis, hypertension, and schizoaffective disorder who presented emergency department via EMS with respiratory distress. Patient seen and evaluated in ED room 10. He is on BiPAP. He has severe conversational dyspnea which does limit history somewhat. He reports he was in his usual state of health until Saturday evening when his breathing started getting worse. Symptoms continued to worsen prompting him to call EMS. He describes his symptoms as shortness of breath and inability to catch his breath. He denies changes in cough. Denies fevers or chills. Endorses generalized malaise and weakness. Exertion worsens symptoms. Rest improves. Patient reportedly recently had a stay at [facility] where he required intubation and mechanical ventilation. Discussed CODE STATUS with patient, he is okay to be intubated should he worsen and require it. Attempted to review complete medical history with patient. Was unable to get past surgical history or family history due to severe dyspnea. Hospital Course Hospital Course Patient was admitted to the hospital further evaluation and management of acute on chronic hypoxic and hypercapnic respiratory failure in setting of COPD exacerbation from community-acquired pneumonia. He was started on IV antibiotics, inhalation therapy along with IV steroids. He had faster than expected recovery and has been back to his baseline oxygen supplementation for more than 24 hours. Patient currently is on 2 L walking supplementation both at rest and on minimal ambulation. He states he is improving. He has been discharged in hemodynamically stable condition on oral antibiotics for 5 more days along with steroid taper with advised to follow-up with his primary care provider within the next 1 week. Physical Exam Narrative: Cachectic, malnourished AOx3. Pleasant and cooperative Nonfocal neuro exam Bilateral bronchial breath sounds all over lung with occasional rhonchi S1-S2 regular without murmurs, Abdomen soft nontender no organomegaly Discharge Data Studies Completed and Pending Completed Studies During Hospitalization Category Date Time Status XR chest 1V portable 04129 Stat Exams 01/18/24 01:08 Completed Pending at discharge Category Date Time Status Blood Culture Stat Lab 01/18/24 02:07 Results Complete Blood Count w/Auto AM LABS Lab 01/21/24 04:00 Ordered Comprehensive Metabolic Panel AM LABS Lab 01/21/24 04:00 Ordered Folate Level AM LABS Lab 01/21/24 04:00 Ordered Free T4 Free Thyroxine Routine Lab 01/20/24 10:14 Ordered Hemoglobin A1C Routine Lab 01/20/24 03:40 Received MAG [Magnesium] AM LABS Lab 01/21/24 04:00 Ordered MAG [Magnesium] AM LABS Lab 01/22/24 04:00 Ordered MAG [Magnesium] AM LABS Lab 01/23/24 04:00 Ordered Sputum Culture and Gram Stain Routine Lab 01/18/24 04:00 Uncollected T3 Free Routine Lab 01/20/24 10:14 Ordered Radiology Impressions Chest X-Ray 01/18/24 01:08 IMPRESSION: Increased interstitial opacities in the medial right lung base and left basilar airspace opacities may be chronic or acute. Laboratory Results WBC 8.69 10^3/uL (3.29-11.43) 01/20/24 03:46 RBC 3.38 10^6/uL (3.85-5.65) L 01/20/24 03:46 Hgb 10.60 g/dL (11.27-16.99) L 01/20/24 03:46 Hct 35.1 % (37-53) L 01/20/24 03:46 MCV 103.8 fl (82-101) H D 01/20/24 03:46 MCH 31.4 pg (27-33) 01/20/24 03:46 MCHC 30.2 g/dL (30-55) D 01/20/24 03:46 RDW 11.9 % (12.1-15.1) L 01/20/24 03:46 Plt Count 250 10^3/cmm (157-399) 01/20/24 03:46 MPV 9.3 fL (7.4-10.4) 01/20/24 03:46 Neut % (Auto) 89.6 % 01/20/24 03:46 Lymph % (Auto) 4.5 % 01/20/24 03:46 Yell % (Auto) 5.1 % 01/20/24 03:46 Eos % (Auto) 0.0 % 01/20/24 03:46 Baso % (Auto) 0.1 % 01/20/24 03:46 Neut # (Auto) 7.79 10^3/uL (1.8-7.7) H 01/20/24 03:46 Lymph # (Auto) 0.4 10^3/uL (0.8-4.8) L 01/20/24 03:46 Yell # (Auto) 0.4 10^3/uL (0.2-0.9) 01/20/24 03:46 Eos # (Auto) 0.0 10^3/uL (0.0-0.8) 01/20/24 03:46 Baso # (Auto) 0.0 10^3/uL (0.0-0.1) 01/20/24 03:46 Nucleated RBC % (auto) 0 % 01/20/24 03:46 Nucleated RBCs # 0.0 /100WBC 01/20/24 03:46 Specimen Type Arterial 01/18/24 02:00 Sample Site Radial, left 01/18/24 02:00 ABG pH 7.33 (7.35-7.45) L 01/18/24 02:00 ABG pCO2 74.1 mmHg (35-45) H* 01/18/24 02:00 ABG pO2 68.7 mmHg (80.0-100.0) L 01/18/24 02:00 ABG PO2/FiO2 Ratio 0 01/18/24 02:00 ABG HCO3 38.7 mmol/L (22-26) H 01/18/24 02:00 ABG O2 Saturation 92.9 01/18/24 02:00 ABG Base Excess 9.8 mmol/L (-2.0-2.0) H 01/18/24 02:00 Mariusz Test Pos 01/18/24 02:00 A-a O2 Gradient 49.0 mmHg (5-10) H 01/18/24 02:00 Hematocrit 39.4 % (42-52) L 01/18/24 02:00 Hgb O2 Saturation 91.6 % (95-100) L 01/18/24 02:00 Carboxyhemoglobin 1.1 %THgb (0.4-20.1) 01/18/24 02:00 Methemoglobin 0.4 % (0.4-1.5) 01/18/24 02:00 Total Hemoglobin 12.9 g/dL (14-18) L 01/18/24 02:00 Sodium 131.0 mmol/L (131-143) 01/18/24 02:00 Potassium 5.1 mmol/L (3.5-5.0) H 01/18/24 02:00 Glucose 116.0 mg/dL (70-115) H 01/18/24 02:00 Ionized Calcium 1.1 mmol/L (1.1-1.4) 01/18/24 02:00 O2 Delivery Device Bipap 01/18/24 02:00 FiO2 75.0 % 01/18/24 02:00 Web Developer Programmer ID [email or web address] 01/18/24 02:00 Sodium 139 mmol/L (136-145) 01/20/24 03:46 Potassium 4.1 mmol/L (3.5-5.1) 01/20/24 03:46 Chloride 97 mmol/L (98-107) L 01/20/24 03:46 Carbon Dioxide 34 mmol/L (22-29) H 01/20/24 03:46 Anion Gap 12.1 (5-19) 01/20/24 03:46 BUN 8 mg/dL (8-23) 01/20/24 03:46 Creatinine 0.3 mg/dL (0.7-1.2) L 01/20/24 03:46 GFR Calculation 300.9 mL/min (90-130) H 01/20/24 03:46 Glucose 127 mg/dL (65-115) H 01/20/24 03:46 Calculated Osmolality 288 mOsm/kg (285-295) 01/20/24 03:46 Lactic Acid 1.3 mmol/L (0.5-2.2) 01/18/24 01:10 Calcium 8.3 mg/dL (8.5-10.5) L 01/20/24 03:46 Magnesium 2.0 mg/dL (1.7-2.3) 01/20/24 03:46 Iron 58 ug/dL (59-158) L 01/20/24 03:40 TIBC 205 mcg/dl 01/20/24 03:40 % Saturation 28.2 % (20-50) 01/20/24 03:40 Unsat Iron Binding 147 ug/dL (112-347) 01/20/24 03:40 Total Bilirubin 0.5 mg/dL (0.15-1.2) 01/18/24 01:10 AST 17 U/L (0-40) 01/18/24 01:10 ALT 19 U/L (0-41) 01/18/24 01:10 Alkaline Phosphatase 74 U/L (40-130) 01/18/24 01:10 C-Reactive Protein 6.4 mg/L (0.0-4.9) H 01/18/24 02:00 NT-Pro-B Natriuret Pep < 36 pg/mL (0-125) 01/18/24 01:10 Total Protein 7.0 g/dL (6.6-8.7) 01/18/24 01:10 Albumin 4.0 g/dL (3.5-5.2) 01/18/24 01:10 Globulin 3.0 g/dL (1.3-4.6) 01/18/24 01:10 Triglycerides 61 mg/dL (0-150) 01/20/24 03:40 Cholesterol 141 mg/dL (0-200) 01/20/24 03:40 LDL Cholesterol, Calc 44 mg/dL (50-129) L 01/20/24 03:40 Total VLDL Cholesterol 12 mg/dL (0-30) 01/20/24 03:40 HDL Cholesterol 85 mg/dL (60-100) 01/20/24 03:40 Cholesterol/HDL Ratio 1.66 mg/dL (1.0-5.00) 01/20/24 03:40 Vitamin B12 436 pg/mL (232-1245) 01/20/24 03:40 Procalcitonin 0.53 ng/mL (0-0.5) H 01/18/24 02:00 TSH 0.13 uIU/mL (0.27-4.20) L 01/20/24 03:40 Vitals Last Vital Signs Temp 97.7 F 01/20/24 07:47 Pulse 71 01/20/24 07:47 Resp 21 H 01/20/24 07:47 BP 115/76 01/20/24 07:47 Pulse Ox 99 01/20/24 07:47 O2 Del Method Nasal Cannula 01/20/24 07:47 O2 Flow Rate 2.5 01/20/24 07:47 FiO2 40 01/19/24 03:00 Discharge Plan Discharge Patient Disposition: Home Condition: Stable Prescriptions: New prednisone 10 mg tablet See Taper PO DIRECTED Qty: 42 0RF Taper: predniSONE 60-10 60 mg Daily for 2 Days and 0 Hour 50 mg Daily for 2 Days and 0 Hour 40 mg Daily for 2 Days and 0 Hour 30 mg Daily for 2 Days and 0 Hour 20 mg Daily for 2 Days and 0 Hour 10 mg Daily for 2 Days and 0 Hour Rx Instructions: see taper instructions amoxicillin-pot clavulanate 875-125 mg tablet 1 tab PO BID Qty: 10 0RF levofloxacin 750 mg tablet 750 mg PO Q24H 5 Days Qty: 5 0RF Continued aspirin 81 mg tablet,delayed release (DR/EC) 81 mg PO DAILY Qty: 90 1RF atorvastatin 80 mg tablet 80 mg PO DAILY Qty: 90 1RF (DME) wheelchair See Rx Instructions .Route .MEDSUPPLY Qty: 1 0RF Rx Instructions: As directed ipratropium-albuterol 0.5 mg-3 mg(2.5 mg base)/3 mL solution for nebulization 3 ml inhalation Q8H PRN (Reason: Shortness Of Breath) calcium carbonate [Calcium 600] 600 mg calcium (1,500 mg) tablet 600 mg PO DAILY alendronate 70 mg tablet 70 mg PO Q7D Rx Instructions: SATURDAY thiamine HCl (vitamin B1) 100 mg tablet 100 mg PO DAILY prednisone 5 mg tablet 5 mg PO BID Qty: 60 3RF carvedilol 3.125 mg tablet See Rx Instructions .ROUTE .COMPLEX Qty: 90 3RF Dose Instruction: TAKE 1 TABLET BY MOUTH EVERY 12 HOURS WITH A MEAL/FOOD Rx Instructions: TAKE 1 TABLET BY MOUTH EVERY 12 HOURS WITH A MEAL/FOOD levalbuterol HCl 1.25 mg/3 mL solution for nebulization 1.25 mg inhalation Q6H Qty: 90 0RF citalopram [Celexa] 40 mg tablet 40 mg PO DAILY Qty: 30 2RF Zyprexa 10 mg tablet 10 mg PO QAM Qty: 30 2RF azithromycin 250 mg tablet 250 mg PO .COMPLEX Qty: 18 1RF Rx Instructions: 250 mg orally Take 1 Tab 3 times a week; Saturday, Saturday and Fridays; folic acid 1 mg tablet 1 mg PO DAILY multivitamin Tablet 1 tab PO DAILY furosemide [Lasix] 40 mg Tablet 40 mg PO DAILY PRN (Reason: Edema) docusate sodium [Colace] 100 mg Capsule 100 mg PO DAILY trazodone 150 mg tablet 150 mg PO BEDTIME PRN (Reason: Sleep) cholecalciferol (vitamin D3) 125 mcg (5,000 unit) Capsule 125 mcg PO Q7D Rx Instructions: SATURDAY Combivent Respimat 20-100 mcg/actuation mist 1 puff INHALATION Q4H Breztri Aerosphere 160-9-4.8 mcg/actuation HFA aerosol inhaler 2 inh INHALATION BID potassium citrate 99 mg Capsule 99 mg PO DAILY Discharge Orders: Discharge Order (Routine); Ordered 01/20/24 Ordered By: Marc Herrera Referrals: TAMIA Greco, SOURCING COORDINATOR [Primary Care Provider] - 01/23/24 9:00 am Discharge Diet: Cardiac Discharge Activity: Resume usual activity and Increase activity as tolerated Patient Instructions: Prednisone (By mouth) (predniSONE Intensol, Prednicot, Deltasone, Parrish), Coronary Artery Disease (DC), Community Acquired Pneumonia (DC), COPD Stoplight, Opioid Safety Discharge Attestations Time Spent in Discharge Care*: greater than 30 min Specific Discharge Activities: educating patient, discussing with pcp/other providers, discussing with complex case manager/social workers/dc planners, documenting/other paperwork and evaluating patient/reviewing data Time Spent in Smoking Cessation: more than 10 minutes Status at Discharge: Cognitive status at discharge: cognitively intact, Behavioral status at discharge: cooperative, Functional status at discharge: uses cane/walker, Overall status at discharge: patient is back to baseline Quality Metrics Clinical Quality Measures [ No reported AMI, CVA or VTE this stay] Coding Level of Care Code 09132 Total time (in minutes) for Discharge: 60 Diagnoses Chronic hypercapnic respiratory failure J96.12 Community acquired pneumonia J18.9 Acute exacerbation of chronic obstructive airways disease J44.1 Schizoaffective disorder, depressive type F25.1 Generalized anxiety disorder F41.1 CAD (coronary artery disease) I25.10
--- NOTE | 2024-01-20 10:47 | PC.SOCIAL ---
IMM Update Pg. 2 of IMM updated and reviewed with patient, who verbalized understanding. Copy provided.
[2024-01-20 12:05] LABS: Free T4 Free Thyroxine 0.96 ng/dL (0.82-1.77); T3 Free 1.5 PG/ML (2.0-4.4)
[2024-01-20 14:57] LABS: Estmated Average Glucose 91; Hemoglobin A1C 4.8 % (4.0-6.0)
== END 2024-01-20 12:11 | disposition home or self-care (01) | DRG 189 ==
LOC: ER 02:18 → ICU 02:22 → CSU 01-19 13:52
PROVIDERS: Internal Medicine; Admitting Provider Internal Medicine; Emergency Provider Emergency Medicine; PCP Nurse Practitioner Family; Visit Provider Student in an Organized Health Care Education/Training Program
DX: J96.22 Acute and chronic respiratory failure with hypercapnia (principal); J18.9 Pneumonia, unspecified organism; J44.0 Chronic obstructive pulmonary disease with (acute) lower respiratory infection; J44.1 Chronic obstructive pulmonary disease with (acute) exacerbation; Z68.1 Body mass index [BMI] 19.9 or less, adult; R64 Cachexia; E46 Unspecified protein-calorie malnutrition; J96.21 Acute and chronic respiratory failure with hypoxia; Z99.81 Dependence on supplemental oxygen; Z87.891 Personal history of nicotine dependence; I50.9 Heart failure, unspecified; I11.0 Hypertensive heart disease with heart failure; I25.10 Atherosclerotic heart disease of native coronary artery without angina pectoris; M81.0 Age-related osteoporosis without current pathological fracture; E55.9 Vitamin D deficiency, unspecified; F41.1 Generalized anxiety disorder; F25.1 Schizoaffective disorder, depressive type; M19.90 Unspecified osteoarthritis, unspecified site
CPT/HCPCS: 36415; 36600; 71045; 80048; 80051; 80053; 80061; 82330; 82607; 82805; 83036; 83540; 83550; 83605; 83735; 83880; 84145; 84439; 84443; 84481; 85025; 86140; 87040; 92526; 92610; 93005; 94640; 94660; 96365; 96367; 96372; 96374; 96376; 99291; J0456; J0696; J1650; J2919; J7030; J7050; J7613; J7626

== ENCOUNTER 2024-02-16 19:49 | Inpatient (IN) | payer MEDICARE, MEDICAID, SELFPAY ==
[2024-01-21 13:46] VITALS: BP 116/87; BMI 16.0
[2024-02-16 19:59] VITALS: BMI 15.4
[2024-02-16 20:02] VITALS: BP 120/77; PULSE 71; RESP 16; TEMP 36.5; O2SAT 97
--- NOTE | 2024-02-16 20:08 | PC.NURSE ---
Patient does not know what medications he takes. Patient states that has a list that she will bring with her tomorrow when she comes to visit.
[2024-02-16 22:55] VITALS: PULSE 72
--- NOTE | 2024-02-16 23:03 | P.HP_ITS ---
Providers/Chief Complaint 2 Admitting Physician: Marlene Scott MD Primary Care Provider: GUILLERMINA Grady History of Present Illness Akira Goss Jr is a 63 year old male Akira Goss Jr is a 63 year old male with past medical history significant for COPD with chronic hypoxic respiratory failure on 3 to 4 L baseline, generalized anxiety disorder, tobacco use disorder in remission, coronary artery disease, osteoarthritis, hypertension, and schizoaffective disorder who presented emergency department to [facility] for shortness of breath. He presented to the outside facility for respiratory distress. Patient was on 4 L nasal cannula with 94% saturation. He was given DuoNeb on route and felt better thereafter. He was tachypneic. He recently discharged from [facility] on 02/12. As per ER note from outside facility it is listed that while patient was at [facility] previously he was referred for hospice however has not had any follow-up with them. Patient was found to have elevated lactic acid 2.3 white cell count 29. Apparently patient started complaining of chest pain and was provided Nitropaste and aspirin 324 chewable. D-dimer negative ESR normal CRP 26. Chest x-ray came back revealing multifocal pneumonia. Patient was placed on azithromycin and ceftriaxone recently and had hospitalization within the last 3 months therefore was started on vancomycin and cefepime and blood cultures were collected. Patient did have 2 troponins done with values of 16 and 14 with a delta of -2. He was placed on high flow nasal cannula for comfort and transferred to [facility] as per patient's request. Patient seen in room 276 on arrival to the hospital. He is currently sitting up in bed breathing with pursed lips. He says this is usually how he breathes. He has a muffled voice and says he has been intubated in the past. Thereafter patient cleared his throat and started speaking normally. Initially he was whispering. He states he was at [facility] recently. He is not sure if he was diagnosed with pneumonia he says he is normally short of breath but today he is a little extra short of breath. He is on baseline 3.5 L nasal cannula and requiring the same here. Did do a goals of care discussion with the patient to which he stated he does not want to be intubated or have CPR done. He wants to be a DNR at this time. Medications/Allergies Home Medications Medication Instructions Recorded Confirmed Last Taken Type thiamine HCl (vitamin B1) 100 mg 100 mg PO DAILY 02/01/22 02/05/24 01/17/24 History tablet aspirin 81 mg tablet,delayed 81 mg PO DAILY #90 tabs 02/22/22 02/17/24 02/16/24 Rx release atorvastatin 80 mg tablet 80 mg PO DAILY #90 tabs 02/22/22 02/17/24 02/16/24 Rx wheelchair #1 ea 01/10/23 02/05/24 Unknown Rx docusate sodium 100 mg capsule 100 mg PO DAILY 03/15/23 02/05/24 01/17/24 History (Colace) furosemide 40 mg tablet (Lasix) 40 mg PO DAILY PRN Edema 03/15/23 02/05/24 05/12/23 History multivitamin 1 tab PO DAILY 03/15/23 02/05/24 01/17/24 History folic acid 1 mg tablet 1 mg PO DAILY 05/13/23 02/05/24 01/17/24 History prednisone 5 mg tablet 5 mg PO BID #60 tabs 10/02/23 02/17/24 02/16/24 Rx calcium carbonate (Calcium 600) 600 mg PO DAILY 11/20/23 02/17/24 02/16/24 History ipratropium 0.5 mg-albuterol 3 mg 3 ml inhalation Q8H PRN Shortness 11/20/23 02/17/24 02/16/24 History (2.5 mg base)/3 mL nebulization Of Breath soln levalbuterol HCl 1.25 mg/3 mL 1.25 mg (3 mL) inhalation Q6H #90 11/27/23 02/17/24 02/16/24 Rx solution for nebulization mL citalopram 40 mg tablet (Celexa) 40 mg PO DAILY #30 tabs 12/23/23 02/17/24 02/16/24 Rx olanzapine 10 mg tablet (Zyprexa) 10 mg PO QAM #30 tabs 12/23/23 02/17/24 02/15/24 Rx alendronate 70 mg tablet 70 mg PO Q7D 12/27/23 02/05/24 01/17/24 History azithromycin 250 mg tablet 250 mg PO .COMPLEX #18 tabs 01/13/24 02/17/24 02/14/24 Rx amoxicillin 875 mg-potassium 1 tab PO BID #10 tabs 01/20/24 02/05/24 Unknown Rx clavulanate 125 mg tablet cholecalciferol (vitamin D3) 125 125 mcg PO Q7D 01/20/24 02/05/24 01/17/24 History mcg (5,000 unit) capsule ipratropium 20 mcg-albuterol 100 1 puff inhalation Q4H 01/20/24 02/17/24 02/16/24 History mcg/actuation mist for inhalation (Combivent Respimat) potassium citrate 99 mg capsule 99 mg PO DAILY 01/20/24 02/05/24 01/17/24 History prednisone 10 mg tablet See Taper PO DIRECTED #42 tabs 01/20/24 02/05/24 Unknown Rx trazodone 150 mg tablet 150 mg PO BEDTIME PRN Sleep 01/20/24 02/05/24 Unknown History budesonide 160 mcg-glycopyr 9 2 inh inhalation BID #10.7 grams 01/23/24 02/05/24 Unknown Rx mcg-formot 4.8 mcg/actuation HFA inhaler (Breztri Aerosphere) carvedilol 3.125 mg tablet See Rx Instructions .Route 01/23/24 02/17/24 02/16/24 Rx .COMPLEX #90 tabs Allergies Allergy/AdvReac Type Severity Reaction Status Date / Time No Known Allergies Allergy Verified 02/05/24 08:15 PFSH Acute 2 PFSH: Medical History (Updated 02/05/24 @ 08:23 by La Nena Beebe LPN) CAD (coronary artery disease) Urinary retention Transient tics Hyponatremia Chronic back pain Hip pain Encounter for smoking cessation counseling Chronic obstructive pulmonary disease Enrolled in chronic care management please do not remove from active COPD exacerbation Acute bacterial sinusitis COPD exacerbation Skin breakdown Non-ischemic myocardial injury (non-traumatic) COPD with acute exacerbation Anorexia Difficulty clearing secretions Physical deconditioning On combination antipsychotic drug therapy History of fracture of left hip Bilateral primary osteoarthritis of hip Chronic SI joint pain Lumbar radiculopathy, chronic Psychiatric care Osteoporosis Severe muscle deconditioning Cachexia Hip fracture Weight loss Prostate cancer screening Essential hypertension Medication management Unintentional weight loss Vitamin D deficiency Nicotine dependence, cigarettes, uncomplicated Generalized anxiety disorder Schizoaffective disorder, depressive type Social History Smoking and tobacco/nicotine status: former use of tobacco/nicotine Quit status (tobacco/nicotine): has quit using Second hand smoke exposure: Yes Alcohol intake: current Alcohol intake frequency: 3 or more drinks per day Substance/Drug Use: never Lives independently: Yes Household members: spouse Marital status: service: No Current occupational status: disabled Pets and animals: Yes Do you think of yourself as: Straight/Heterosexual Current gender identity: Male Vitals/I&O/Wt Last Vital Signs Temp 97.7 F 02/16/24 20:02 Pulse 71 02/16/24 20:02 Resp 16 02/16/24 20:02 BP 120/77 02/16/24 20:02 Pulse Ox 97 02/16/24 20:02 O2 Del Method Nasal Cannula 02/16/24 20:02 O2 Flow Rate 3.5 02/16/24 20:02 02/16/24 02/16/24 02/17/24 14:59 22:59 06:59 Output Total 250 / 250 Balance -250 / -250 Weight last 48 hrs Weight 43.346 kg Physical Exam 2 Narrative: Cachectic, malnourished AOx3 Pleasant and cooperative Nonfocal neuro exam Thin extremities Cachectic malnourishment S1, S2 3.5L NC Breathing with pursed lips, rhonchi bilateral lower lung levin, mild diffuse wheezes, sounds gurgly however that improves after he tries to clear his throat and cough. Patient has been coughing and swallowing his sputum. Sputum has been clear. Abdomen soft nontender No acute respiratory distress. No conversational dyspnea. Data 02/16/24 23:45 02/16/24 23:45 A&P Assessment and plan (1) CAD (coronary artery disease): (2) Chronic back pain: (3) Chronic obstructive pulmonary disease: (4) Left lower lobe pulmonary infiltrate: (5) Chronic hypercapnic respiratory failure: (6) Acute exacerbation of chronic obstructive airways disease: (7) Acute respiratory failure with hypoxia and hypercapnia: (8) Community acquired pneumonia: (9) Generalized anxiety disorder: (10) Schizoaffective disorder, depressive type: Plan #Multifocal pneumonia on x-ray #Severe COPD exacerbation #Schizoaffective disorder #Generalized anxiety disorder #CAD #Arthritis #Hypertension ? Patient is on 3.5 L nasal cannula at baseline. He follows with Dr. Rooney as an outpatient. Patient does have history of end-stage severe COPD and has a weight loss of over 20 pounds in the last 6 to 8 months. He is wheelchair-bound with hip fracture and smoking history of 50 years a pack per day. He has severe emphysema as evidenced on PFTs. Patient is a chronic CO2 retainer with bicarb 28-30. He has had multiple exacerbations and is on maximum inhaler therapy as well as Roflumilast 500 mg daily. Azithromycin 3 times a week was also added. He last saw pulmonology in September and he was discharged with BiPAP prescription with settings of 25/04 however patient did not tolerated. Patient has had difficulty to clearing his secretions. He is apparently now on prednisone 5 mg twice daily. Patient will benefit from AVAPS to prevent future COPD admissions but Medicaid denied noninvasive ventilation. In May 2023 patient restarted smoking. Above information obtained from chart. Apparently he was recommended hospice at his previous [facility] hospitalization which was 4 days ago. At this point his x-ray from outside facility indicates multifocal pneumonia which is similar to x-ray from 01/17 as per report. I do not have images to compare from outside facility today. I will go ahead and place patient on Vanco and Zosyn at this time since she has had multiple exacerbations and hospitalizations in the past. Patient did get his dose of azithromycin and ceftriaxone at [facility] today. ? Check sputum Gram stain culture, blood cultures ? DuoNeb every 6 hours scheduled ? Check ABG ? Check CBC BMP mag, phosphorus ? Patient will need to be placed on azithromycin 3 times a week at discharge and may require prolonged prednisone taper. ? He is definitely has signs of acute bronchitis. ? Placed on Solu-Medrol 60 every 8 hours ? He is on inhaled Pulmicort twice daily ? Continue atorvastatin, aspirin ? He says he has been referred to a new real estate analyst and will be seeing them at the end of February in [place]. ? Continue oxygen supplementation. May use BiPAP if needed however at this time patient appears to be compensating well on nasal cannula. He is saturating 97%. ? Will check lactic acid ? Will check procalcitonin ? Check respiratory viral panel I will place on IV fluids normal saline 75 cc/h. DNR/DNI. Had a goals of care discussion with the patient. He states that he does not want chest compressions however may consider ventilator but at the end he said he does not want the ventilator either. I did not discuss hospice with him. Will need to confirm patient's home medications. Attestations 2 Medical Necessity Statement*: Greater than 2 midnight stay for management of multifocal pneumonia, severe COPD exacerbation Diagnoses CAD (coronary artery disease) I25.10 Chronic back pain M54.9; G89.29 Chronic obstructive pulmonary disease J44.9 Left lower lobe pulmonary infiltrate R91.8 Chronic hypercapnic respiratory failure J96.12 Acute exacerbation of chronic obstructive airways disease J44.1 Acute respiratory failure with hypoxia and hypercapnia J96.01; J96.02 Community acquired pneumonia J18.9 Generalized anxiety disorder F41.1 Schizoaffective disorder, depressive type F25.1
--- NOTE | 2024-02-16 23:09 | CTR_ITS ---
PROCEDURE INFORMATION: Exam: CTA Chest With Contrast Exam date and time: 02/16/2024 11:25 PM Age: 63 years old Clinical indication: Shortness of breath; Patient HX: SOB with hypoxia. History of emphysema. ; Additional info: Hypoxia, creatinine is 0.38 from outside facility paperwork TECHNIQUE: Imaging protocol: Computed tomographic angiography of the chest with contrast. Exam focused on the arteries. 3D rendering (Not supervised by radiologist): MIP and/or 3D reconstructed images were created by the technologist. Radiation optimization: All CT scans at this facility use at least one of these dose optimization techniques: automated exposure control; mA and/or kV adjustment per patient size (includes targeted exams where dose is matched to clinical indication); or iterative reconstruction. Contrast material: OMNI 350; Contrast volume: 60 ml; Contrast route: INTRAVENOUS (IV); COMPARISON: CT chest wo con [id number] 05/13/2023 1:32 PM RADIATION DOSE METRICS: Total DLP (mGy-cm): 197.65 FINDINGS: Pulmonary arteries: Normal caliber main pulmonary artery. No filling defects seen in the pulmonary artery tree. Aorta: Unremarkable. No aortic aneurysm. No aortic dissection. Thyroid: Homogeneous thyroid. Trachea: Retained secretions are noted in the trachea. Lungs: Advanced centrilobular emphysema. There is patchy airspace disease throughout both lungs, most prominent in the right lower lobe. There is mild bronchial wall thickening. Multifocal peripheral bronchial occlusion noted. Pleural spaces: Unremarkable. No pneumothorax. No pleural effusion. Heart: Unremarkable. No cardiomegaly. No pericardial effusion. Lymph nodes: Unremarkable. No enlarged lymph nodes. Adrenal glands: Normal adrenals. Kidneys and ureters: Visualized portions of the right kidney are normal. Left kidney is not present in the scan range. Bones/joints: Unchanged compression deformities at T9 and T12. Interval development compression deformity at T5. No acute fracture. Soft tissues: Unremarkable. CT/CT angio chest PE protcl [id number] IMPRESSION: 1. Multifocal airspace disease, diffuse bronchial wall thickening, and multifocal tracheobronchial debris with peripheral bronchial occlusions. Findings are compatible with bronchopneumonia and acute on chronic bronchitis. 2. No findings of acute pulmonary embolism. No acute abnormality of the thoracic aorta. COMMENTS: The presence of pulmonary emphysema on CT is an independent risk factor for lung cancer. In the absence of a history or active diagnosis of lung cancer, it is recommended that this patient with emphysema be evaluated for enrollment in a low dose CT lung cancer screening program.
[2024-02-16] MEDS: iohexol 350 mg/mL 500 mL Btl (per mL) IV (23:26)
[2024-02-16] MEDS: sodium chloride 0.9% 1,000 ML 75 ML IV (23:46)
[2024-02-16] MEDS: pantoprazole 40 mg SDV IVP (23:47)
[2024-02-16] MEDS: methylPREDNISolone sod succ 40 mg/mL INJ IVP (23:52)
[2024-02-16] MEDS: azithromycin 500 MG in sodium chloride 0.9% 250 ML 250 MG IV (23:52)
[2024-02-17] VITALS (17 sets, daily range): BP systolic 110–125; BP diastolic 63–80; PULSE 72–87; RESP 16–26; TEMP 36.4–36.9; O2SAT 87–98
[2024-02-17 00:08] LABS: Basophils % 0.2 %; Eosinophils % 0.2 %; Hematocrit 36.6 % (37-53); Lymphocytes # 0.6 10^3/uL (0.8-4.8); Lymphocytes % 3.4 %; Mean Corpuscular HGB Conc 32.8 g/dL (30-55); Mean Corpuscular Hemoglobin 31.7 pg (27-33); Mean Corpuscular Volume 96.6 fl (82-101); Mean Platelet Volume 8.6 fL (7.4-10.4); Monocytes % 5.6 %; Neutrophils # 16.18 10^3/uL (1.8-7.7); Neutrophils % 89.6 %; Nucleated Red Blood Cells % 0 %; Platelet Count 295 10^3/cmm (157-399); Red Blood Count 3.79 10^6/uL (3.85-5.65); Red Cell Distribution Width 12.3 % (12.1-15.1); White Blood Count 18.05 10^3/uL (3.29-11.43)
[2024-02-17 00:28] LABS: Lactic Sepsis W/Reflex 3.2 mmol/L (0.5-2.2)
[2024-02-17 00:30] LABS: D Dimer 0.38 ug/mLFEU (0-0.59)
[2024-02-17 00:36] LABS: NT Pro B Type Natriuretic Pept 403 pg/mL (0-125); Procalcitonin 0.79 ng/mL (0-0.5)
[2024-02-17 00:47] LABS: Alanine Aminotransferase 16 U/L (0-41); Albumin Level 3.5 g/dL (3.5-5.2); Alkaline Phosphatase 74 U/L (40-130); Anion Gap 10.3 (5-19); Aspartate Amino Transferase 12 U/L (0-40); Blood Urea Nitrogen 10 mg/dL (8-23); Calcium 8.3 mg/dL (8.5-10.5); Carbon Dioxide 36 mmol/L (22-29); Chloride 89 mmol/L (98-107); Creatinine Clr Calc Pharmacy 56.4401; Globulin 2.6 g/dL (1.3-4.6); Glomerular Filtration Rate 215.9 mL/min (90-130); Glucose 92 mg/dL (65-115); Osmolality Calculated 271 mOsm/kg (285-295); Phosphorus 2.9 mg/dL (2.5-4.5); Potassium 4.3 mmol/L (3.5-5.1); Sodium 131 mmol/L (136-145); Total Bilirubin 0.5 mg/dL (0.15-1.2); Total Protein 6.1 g/dL (6.6-8.7)
[2024-02-17 00:55] LABS: ABG PH Result 7.35 (7.35-7.45); Arterial Blood Gas Hematocrit 33.4 % (42-52); Base Excess ABG 11.1 mmol/L (-2.0-2.0); Blood Gas Operator Identificat JB; Blood Gas Sample Site Brachial, right; Blood Gas Sample Type Venous; Carboxyhemoglobin 1.6 %THgb (0.4-20.1); HCO3 ABG 39.1 mmol/L (22-26); HGB O2 Sat 53.8 % (95-100); Ionized Calcium Level - ABG 1.1 mmol/L (1.1-1.4); Methemoglobin 0.7 % (0.4-1.5); Oxygen Device NC; PO2 ABG 29.3 mmHg (80.0-100.0); Potassium Level - ABG 4.1 mmol/L (3.5-5.0); Total Hemoglobin 10.9 g/dL (14-18)
[2024-02-17 00:57] LABS: ABG PCO2 70.4 mmHg (35-45)
[2024-02-17] MEDS: cefTRIAXone 1,000 MG in sodium chloride 0.9% (plus) 50 ML 100 MG IV (01:18)
[2024-02-17 01:52] LABS: Reflex Lactate Order REFLEX LACTIC ORDERD
[2024-02-17] MEDS: piperacillin-tazobactam 3.375 GM in sodium chloride 0.9% (plus) 50 ML IV ×3 (02:30→17:29)
[2024-02-17 04:08] LABS: Basophils % 0.1 %; Hematocrit 34.6 % (37-53); Lymphocytes # 0.3 10^3/uL (0.8-4.8); Lymphocytes % 2.1 %; Mean Corpuscular HGB Conc 32.4 g/dL (30-55); Mean Corpuscular Hemoglobin 31.4 pg (27-33); Mean Corpuscular Volume 96.9 fl (82-101); Mean Platelet Volume 8.6 fL (7.4-10.4); Monocytes # 0.5 10^3/uL (0.2-0.9); Monocytes % 3.1 %; Neutrophils % 93.7 %; Nucleated Red Blood Cells % 0 %; Platelet Count 259 10^3/cmm (157-399); Red Blood Count 3.57 10^6/uL (3.85-5.65); Red Cell Distribution Width 12.1 % (12.1-15.1); White Blood Count 15.36 10^3/uL (3.29-11.43)
[2024-02-17 04:10] LABS: Adenovirus Not Detected (NOT DETECT); Chlamydia Pneumoniae Not Detected (NOT DETECT); Coronavirus 229E,HKU1,NL63,OC4 Not Detected (NOT DETECT); Human Metapneumovirus Not Detected (NOT DETECT); Human Rhinovirus/Enterovirus Not Detected (NOT DETECT); Influenza A Not Detected (NOT DETECT); Influenza A H1 Not Detected (NOT DETECT); Influenza A H1-2009 Not Detected (NOT DETECT); Influenza A H3 Not Detected (NOT DETECT); Influenza B Not Detected (NOT DETECT); Mycoplasma Pneumoniae Not Detected (NOT DETECT); Parainfluenza Virus Type 1 Not Detected (NOT DETECT); Parainfluenza Virus Type 2 Not Detected (NOT DETECT); Parainfluenza Virus Type 3 Not Detected (NOT DETECT); Parainfluenza Virus Type 4 Not Detected (NOT DETECT); Respiratory Syncytial Virus A Not Detected (NOT DETECT); Respiratory Syncytial Virus B Not Detected (NOT DETECT); SARS-COV-2 Not Detected (NOT DETECT)
[2024-02-17 04:41] LABS: Alanine Aminotransferase 15 U/L (0-41); Albumin Level 3.3 g/dL (3.5-5.2); Alkaline Phosphatase 70 U/L (40-130); Anion Gap 8.6 (5-19); Aspartate Amino Transferase 12 U/L (0-40); Blood Urea Nitrogen 8 mg/dL (8-23); Carbon Dioxide 38 mmol/L (22-29); Chloride 93 mmol/L (98-107); Globulin 2.3 g/dL (1.3-4.6); Glomerular Filtration Rate 300.9 mL/min (90-130); Glucose 108 mg/dL (65-115); Magnesium 2.1 mg/dL (1.7-2.3); Osmolality Calculated 279 mOsm/kg (285-295); Phosphorus 2.3 mg/dL (2.5-4.5); Potassium 4.6 mmol/L (3.5-5.1); Sodium 135 mmol/L (136-145); Total Bilirubin 0.4 mg/dL (0.15-1.2); Total Protein 5.6 g/dL (6.6-8.7)
[2024-02-17 04:42] LABS: Lactic Acid level (Lactate) 1.5 mmol/L (0.5-2.2)
[2024-02-17 04:58] LABS: Creatinine Clr Calc Pharmacy 60.6563
[2024-02-17] MEDS: OLANZapine 10 mg TABLET PO (06:23)
[2024-02-17] MEDS: vancomycin 750 MG in sodium chloride 0.9% 250 ML 250 MG IV ×2 (07:07→18:26)
[2024-02-17] MEDS: citalopram 20 mg Tablet 40 MG PO (08:26)
[2024-02-17] MEDS: aspirin 81 mg EC Tablet PO (08:27)
[2024-02-17] MEDS: atorvastatin 40 mg Tablet 80 MG PO (08:27)
[2024-02-17] MEDS: folic acid 1 mg Tablet PO (08:27)
[2024-02-17] MEDS: multivitamin therapeutic Tablet 1 TAB PO (08:27)
[2024-02-17] MEDS: thiamine 100 mg Tablet PO (08:27)
[2024-02-17] MEDS: methylPREDNISolone sod succ 40 mg/mL INJ IVP ×2 (08:27→15:57)
[2024-02-17] MEDS: heparin 5,000 unit/mL INJ 1 mL 5000 UNIT SUBCUT ×2 (08:27→21:35)
[2024-02-17] MEDS: budesonide 0.5 mg/2 mL Neb INHALATION ×2 (08:50→20:20)
[2024-02-17] MEDS: ipratropium-albuterol 3 mL Neb INHALATION ×4 (08:50→20:20)
[2024-02-17] MEDS: CALCIUM CARBONATE 600 MG TABLET PO (10:10)
[2024-02-17] MEDS: morphine 4 mg/mL SDV 1 mL 1 MG IVP ×3 (10:13→22:42)
--- NOTE | 2024-02-17 14:59 | P.PN_ITS ---
Subjective 2 Subjective: Patient was seen this morning, he is alert oriented x 3, following all commands, continues to complain of shortness of breath, nonproductive cough, chest discomfort, complaints of pleurisy, Vitals/I&O/Wt Last Vital Signs Temp 98.4 F 02/17/24 04:00 Pulse 86 02/17/24 11:29 Resp 16 02/17/24 11:29 BP 125/75 02/17/24 11:12 Pulse Ox 92 02/17/24 11:29 O2 Del Method Nasal Cannula 02/17/24 11:29 O2 Flow Rate 3.5 02/17/24 11:29 02/16/24 02/17/24 02/17/24 22:59 06:59 14:59 Intake Total 240 / 240 590 / 830 368 / 368 Output Total 500 / 500 225 / 725 490 / 490 Balance -260 / -260 365 / 105 -122 / -122 Weight last 48 hrs Weight 46.584 kg Weight 43.346 kg Physical Exam 2 Const: COMMON NORMALS: no acute distress and patient oriented x3 OTHER: Has evidence of muscle loss, bilateral temporal muscle wasting, fat pad thinning, rib exposed, fat pad thinning under clavicles loss of muscles of bilateral arms, bilateral thighs Resp: COMMON NORMALS: normal respiratory effort, No retractions and No use of accessory muscles AUSCULTATION: wheezes Cardio: COMMON NORMALS: regular rate, regular rhythm, S1 normal heart sound present and S2 normal heart sound present RATE: regular rate RHYTHM: r egular rhythm HEART SOUNDS: S1 normal heart sound present and S2 normal heart sound present GI: COMMON NORMALS: Normal to inspection, nondistended, normoactive bowel sounds present and non-tender Extremity: COMMON NORMALS: no pedal edema Neuro: COMMON NORMALS: patient oriented x3 Psych: COMMON NORMALS: mental status grossly normal Urinary Catheter Management: Morgan: Cath Placed During This Visit: yes Urinary Catheter Date of Insertion: 02/17/24 Urinary Catheter Time of Insertion: 11:38 Data 02/17/24 03:57 02/17/24 03:57 Micro: Microbiology 02/16/24 23:59 Blood Culture - Preliminary Blood SPECIMEN COLLECTED 02/16/24 23:45 Blood Culture - Preliminary Blood SPECIMEN COLLECTED A&P Assessment and plan (1) CAD (coronary artery disease): (2) Chronic back pain: (3) Chronic obstructive pulmonary disease: (4) Left lower lobe pulmonary infiltrate: (5) Chronic hypercapnic respiratory failure: (6) Acute exacerbation of chronic obstructive airways disease: (7) Acute respiratory failure with hypoxia and hypercapnia: (8) Generalized anxiety disorder: (9) Schizoaffective disorder, depressive type: (10) Chest pain: (11) Severe protein-calorie malnutrition: (12) Body mass index (BMI) less than 16.5: (13) Physical deconditioning: (14) Muscle wasting: (15) Protein calorie malnutrition: (16) Healthcare-associated pneumonia: Plan # Acute hypoxic respiratory failure #Multifocal pneumonia, healthcare associated pneumonia #Severe COPD exacerbation # Chest pain #Schizoaffective disorder #Generalized anxiety disorder #CAD #Arthritis #Hypertension # BMI 16.6, severe protein calorie malnutrition, physical deconditioning, muscle loss secondary to severe COPD -CTA chest - CT/CT angio chest PE protcl [id number] IMPRESSION: 1. Multifocal airspace disease, diffuse bronchial wall thickening, and multifocal tracheobronchial debris with peripheral bronchial occlusions. Findings are compatible with bronchopneumonia and acute on chronic bronchitis. 2. No findings of acute pulmonary embolism. No acute abnormality of the thoracic aorta. ? Patient is on 3.5 L nasal cannula at baseline. He follows with Dr. Rooney as an outpatient. Patient does have history of end-stage severe COPD and has a weight loss of over 20 pounds in the last 6 to 8 months. He is wheelchair-bound with hip fracture and smoking history of 50 years a pack per day. He has severe emphysema as evidenced on PFTs. Patient is a chronic CO2 retainer with bicarb 28-30. He has had multiple exacerbations and is on maximum inhaler therapy as well as Roflumilast 500 mg daily. Azithromycin 3 times a week was also added. He last saw pulmonology in September and he was discharged with BiPAP prescription with settings of 25/04 however patient did not tolerated. Patient has had difficulty to clearing his secretions. He is apparently now on prednisone 5 mg twice daily. Patient will benefit from AVAPS to prevent future COPD admissions but Medicaid denied noninvasive ventilation. In May 2023 patient restarted smoking. Above information obtained from chart. Apparently he was recommended hospice at his previous [facility] hospitalization which was 4 days ago. At this point his x-ray from outside facility indicates multifocal pneumonia which is similar to x-ray from 01/17 as per report. I do not have images to compare from outside facility today. Plan -Smoking cessation counseling -BiPAP as needed for shortness of breath -Continue vancomycin, Zosyn, azithromycin for healthcare associate pneumonia given recent hospitalization ? Check sputum Gram stain culture, blood cultures ? DuoNeb every 6 hours scheduled ? Placed on Solu-Medrol 60 every 8 hours ? He is on inhaled Pulmicort twice daily ? Continue atorvastatin, aspirin ? He says he has been referred to a new byproducts extractor and will be seeing them at the end of February in [place]. ? Continue oxygen supplementation. May use BiPAP if needed however at this time patient appears to be compensating well on nasal cannula. He is saturating 97%. ? Cardiac echo, serial troponins, telemetry monitoring -Consult dietary, add Ensure to his meals, PT OT DNR/DNI. Had a goals of care discussion with the patient. He states that he does not want chest compressions however may consider ventilator but at the end he said he does not want the ventilator either. I did not discuss hospice with him. Will need to confirm patient's home medications. Plan for today PT OT, dietary eval, continue broad-spectrum antibiotic therapy, steroid therapy, cardiac echo serial troponins, telemetry monitoring Attestations 2 Medical Necessity Statement*: patient requires hospitalization for acute hypoxic respiratory failure, healthcare associated pneumonia, chest pain, copd exacerbation, acute hypoxic respiratory failure Diagnoses CAD (coronary artery disease) I25.10 Chronic back pain M54.9; G89.29 Chronic obstructive pulmonary disease J44.9 Left lower lobe pulmonary infiltrate R91.8 Chronic hypercapnic respiratory failure J96.12 Acute exacerbation of chronic obstructive airways disease J44.1 Acute respiratory failure with hypoxia and hypercapnia J96.01; J96.02 Generalized anxiety disorder F41.1 Schizoaffective disorder, depressive type F25.1 Chest pain R07.9 Severe protein-calorie malnutrition E43 Body mass index (BMI) less than 16.5 Z68.1 Physical deconditioning R53.81 Muscle wasting M62.50 Protein calorie malnutrition E46 Healthcare-associated pneumonia J18.9
--- NOTE | 2024-02-17 15:01 | USCV_ITS ---
Akira Goss Age: 63 Gender: M : 1960 Exam Date: 02/17/2024 18:56 Ordering Phys: Nikita Lopez MD Technologist: PATI Exam [place] [facility] [place] Indication: chest pain, long-term smoker, continues smoking, chronic hypoxia, O2 dependent 4L, normal troponin BP: 110 / 63 HR: 74 Rhythm: Sinus Technical Quality: Good MEASUREMENTS (Male / Female) Normal Values 2D ECHO LV Diastolic Diameter PLAX 4.6 cm 4.2 - 5.9 / 3.9 - 5.3 cm IVS Diastolic Thickness 1.2 cm 0.6 - 1.0 / 0.6 - 0.9 cm IVS Systolic Thickness 1.9 cm LVPW Diastolic Thickness 1.1 cm 0.6 - 1.0 / 0.6 - 0.9 cm LVPW Systolic Thickness 1.6 cm LVOT Diameter 1.9 cm LV Ejection Fraction 2D Teich 72.5 % LV Ejection Fraction MOD 2C 73.1 % LV Ejection Fraction 2C AL 74.8 % LA Diameter 2.4 cm Aorta at Sinotubular Diameter 2.9 cm IVC Diameter 1.9 cm M-MODE LA Ao Ratio MM 0.9 AV Cusp Separation MM 2.2 cm DOPPLER AV Peak Velocity 104.0 cm/s LVOT Peak Velocity 90.0 cm/s AV Area Cont Eq vti 2.7 cm squared AV Area Cont Eq pk 2.5 cm squared MV Peak Velocity 124.0 cm/s MV Area PHT 3.6 cm squared Mitral E to A Ratio 0.8 TV Peak E Velocity 40.0 cm/s PV Peak Velocity 102.0 cm/s FINDINGS Left Ventricle Normal LV size and ejection fraction of 73%.no regional wall motion abnormalities. Grade I/IV diastolic dysfunction (abnormal relaxation filling pattern), normal to mildly elevated filling pressures. Right Ventricle The right ventricle is normal in size and function. Right Atrium The right atrium is normal in size. Left Atrium The left atrium is normal in size. Mitral Valve No gross abnormalities noted Aortic Valve No gross abnormalities noted Tricuspid Valve No gross abnormalities noted Pulmonic Valve No gross abnormalities noted Pericardium Normal pericardium without effusion. Aorta Normal ascending aorta dimension. IVC Normal inferior vena cava. CONCLUSIONS Normal LV size and ejection fraction of 73%.no regional wall motion abnormalities. Grade I/IV diastolic dysfunction (abnormal relaxation filling pattern), normal to mildly elevated filling pressures. Normal cardiac chamber sizes. No significant stenotic or regurgitant lesions. No intracardiac masses. No pericardial effusion. No similar previous studies are available for comparison Dr Claude Ho MD [facility] (Electronically Signed) Final Date: 18 February 2024 12:49 S
--- NOTE | 2024-02-17 15:16 | PC.PT ---
PT evaluation attempted. Patient states that he cannot breathe while lying in bed, he is unable to participate in PT services at this time.
--- NOTE | 2024-02-17 15:27 | ECG_ITS ---
[facility] Test Date: 2024-02-17 Pat Name: Akira Goss Department: Room: 276 Gender: Male Chromium Plater: : 1960 Requested By: Nikita Lopez Order Number: [id number] Gina MD: Omer Lua M.D. Measurements Intervals [place] Rate: 82 P: 85 IN: 135 QRS: 52 QRSD: 83 T: 72 QT: 380 QTc: 446 Interpretive Statements SINUS RHYTHM MODERATE T-WAVE ABNORMALITY, CONSIDER ANTERIOR ISCHEMIA [-0.1+ mV T-WAVE IN V3/V4] Compared to ECG 01/18/2024 01:22:07 T-wave abnormality now present Possible ischemia now present Sinus tachycardia no longer present Electronically Signed On 02-17-2024 16:03:08 CDT by Omer Lua M.D. [email or web address] hospitalFreedom Basketball Leaguecleveland clinic union [id number]
[2024-02-17 16:10] LABS: Troponin(5th) Baseline 14 ng/L (0-15)
--- NOTE | 2024-02-17 16:59 | ECG_ITS ---
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 Measurements Intervals [place] Rate: 79 P: 81 DE: 147 QRS: 37 QRSD: 79 T: 65 QT: 404 QTc: 463 Interpretive Statements SINUS RHYTHM POSSIBLE RIGHT VENTRICULAR CONDUCTION DELAY [RSR (QR) IN V1/V2] MODERATE T-WAVE ABNORMALITY, CONSIDER ANTERIOR ISCHEMIA [-0.1+ mV T-WAVE IN V3/V4] Compared to ECG 02/17/2024 15:27:43 No significant changes Electronically Signed On 02-18-2024 8:57:53 CDT by Omer Lua M.D. [id number]
--- NOTE | 2024-02-17 20:59 | ECG_ITS ---
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 Measurements Intervals [place] Rate: 75 P: 89 OK: 147 QRS: 83 QRSD: 85 T: 72 QT: 415 QTc: 464 Interpretive Statements SINUS RHYTHM POSSIBLE ANTERIOR MYOCARDIAL INFARCTION , OF INDETERMINATE AGE [30 ms Q WAVE IN V3/V4, OR R < 0.2 mV IN V4] Compared to ECG 02/17/2024 17:01:02 Myocardial infarct finding now present T-wave abnormality no longer present Possible ischemia no longer present Electronically Signed On 02-18-2024 8:58:16 CDT by Omer Lua M.D. [id number]
[2024-02-17 21:45] LABS: Troponin 5 2HR 12.04 ng/L (0-15)
[2024-02-17 21:46] LABS: Troponin 5 2HR Delta -1.96 ABS# (0-10)
[2024-02-17 22:03] LABS: Troponin 5 6HR 12.23 ng/L (0-15)
[2024-02-17 22:19] LABS: Troponin 5 6HR Delta -1.77 ng/L (0-12)
[2024-02-17] MEDS: pantoprazole 40 mg SDV IVP (22:41)
[2024-02-18] VITALS (17 sets, daily range): BP systolic 114–131; BP diastolic 69–78; PULSE 70–88; RESP 12–32; TEMP 36.6–37.1; O2SAT 93–100
[2024-02-18] MEDS: azithromycin 500 MG in sodium chloride 0.9% 250 ML 250 MG IV (00:25)
[2024-02-18] MEDS: methylPREDNISolone sod succ 40 mg/mL INJ IVP ×3 (00:25→17:02)
[2024-02-18] MEDS: piperacillin-tazobactam 3.375 GM in sodium chloride 0.9% (plus) 50 ML IV ×3 (02:20→17:03)
[2024-02-18] MEDS: OLANZapine 10 mg TABLET PO (06:28)
[2024-02-18] MEDS: vancomycin 750 MG in sodium chloride 0.9% 250 ML 250 MG IV (06:28)
[2024-02-18 07:04] LABS: Basophils % 0.2 %; Hematocrit 30.6 % (37-53); Lymphocytes # 0.3 10^3/uL (0.8-4.8); Mean Corpuscular HGB Conc 32.7 g/dL (30-55); Mean Corpuscular Hemoglobin 31.7 pg (27-33); Mean Corpuscular Volume 97.1 fl (82-101); Mean Platelet Volume 9.2 fL (7.4-10.4); Monocytes # 0.6 10^3/uL (0.2-0.9); Neutrophils % 88.8 %; Nucleated Red Blood Cells % 0 %; Platelet Count 274 10^3/cmm (157-399); Red Blood Count 3.15 10^6/uL (3.85-5.65); Red Cell Distribution Width 12.4 % (12.1-15.1); White Blood Count 10.47 10^3/uL (3.29-11.43)
[2024-02-18 07:25] LABS: Anion Gap 10.3 (5-19); Blood Urea Nitrogen 7 mg/dL (8-23); Calcium 8.1 mg/dL (8.5-10.5); Carbon Dioxide 37 mmol/L (22-29); Chloride 98 mmol/L (98-107); Creatinine Clr Calc Pharmacy 64.5547; Glomerular Filtration Rate 300.9 mL/min (90-130); Glucose 117 mg/dL (65-115); Osmolality Calculated 291 mOsm/kg (285-295); Potassium 4.3 mmol/L (3.5-5.1); Sodium 141 mmol/L (136-145)
[2024-02-18] MEDS: heparin 5,000 unit/mL INJ 1 mL 5000 UNIT SUBCUT ×2 (08:10→21:38)
[2024-02-18] MEDS: morphine 4 mg/mL SDV 1 mL 1 MG IVP ×4 (08:10→21:50)
[2024-02-18] MEDS: folic acid 1 mg Tablet PO (08:10)
[2024-02-18] MEDS: citalopram 20 mg Tablet 40 MG PO (08:10)
[2024-02-18] MEDS: atorvastatin 40 mg Tablet 80 MG PO (08:10)
[2024-02-18] MEDS: thiamine 100 mg Tablet PO (08:10)
[2024-02-18] MEDS: multivitamin therapeutic Tablet 1 TAB PO (08:10)
[2024-02-18] MEDS: aspirin 81 mg EC Tablet PO (08:20)
[2024-02-18] MEDS: budesonide 0.5 mg/2 mL Neb INHALATION (08:41)
[2024-02-18] MEDS: ipratropium-albuterol 3 mL Neb INHALATION ×2 (08:41→11:16)
--- NOTE | 2024-02-18 09:33 | PC.PT ---
Physical Therapist enters pt's room at 09:23 this morning. Pt is supine in bed. Pt is kindly refusing PT evaluation at this time stating that he is unable to breath well laying in bed, and he will be unable to get out of bed to work with therapy. Pt expresses that his plan is to go on hospice care, and he would like us to discontinue the PT orders at this time because he will not be able to participate. Pt is educated on benefits of mobility and exercise, and pt still wants to D/C PT orders at this time. It pt's status changes and/or further PT is warranted, please re-order PT evaluation.
[2024-02-18] MEDS: polyethylene glycol 3350 Pkt 17 gm PO (11:00)
[2024-02-18] MEDS: CALCIUM CARBONATE 600 MG TABLET PO (11:25)
--- NOTE | 2024-02-18 13:30 | P.PN_ITS ---
Subjective 2 Subjective: Patient was seen this morning, he tells me that his breathing is improving continues to have a productive cough, no fevers, chills Vitals/I&O/Wt Last Vital Signs Temp 97.8 F 02/18/24 10:40 Pulse 75 02/18/24 11:16 Resp 25 H 02/18/24 12:12 BP 114/69 02/18/24 10:40 Pulse Ox 96 02/18/24 12:12 O2 Del Method Nasal Cannula 02/18/24 11:16 O2 Flow Rate 3 02/18/24 11:16 FiO2 35 02/18/24 00:00 02/17/24 02/18/24 02/18/24 22:59 06:59 14:59 Intake Total 1606.000 / 1974.000 540 / 2514.000 490 / 490 Output Total 1600 / 2090 750 / 2840 1999 / 1999 Balance 6.000 / -116.000 -210 / -326.000 -1510 / -1510 Weight last 48 hrs Weight 49.578 kg Weight 46.584 kg Weight 43.346 kg Physical Exam 2 Const: COMMON NORMALS: no acute distress and patient oriented x3 Resp: COMMON NORMALS: normal respiratory effort, No retractions and No use of accessory muscles AUSCULTATION: crackles and wheezes Cardio: COMMON NORMALS: regular rate, regular rhythm, S1 normal heart sound present and S2 normal heart sound present RATE: regular rate RHYTHM: r egular rhythm HEART SOUNDS: S1 normal heart sound present and S2 normal heart sound present GI: COMMON NORMALS: Normal to inspection, nondistended, normoactive bowel sounds present and non-tender Extremity: COMMON NORMALS: no pedal edema Neuro: COMMON NORMALS: patient oriented x3 Psych: COMMON NORMALS: mental status grossly normal Urinary Catheter Management: Morgan: Cath Placed During This Visit: yes Reason for Continuing Indwelling Catheter: Accurate Measurement of Urinary Output in Critically Ill Patients Urinary Catheter Date of Insertion: 02/17/24 Urinary Catheter Time of Insertion: 11:38 Data 02/18/24 05:52 02/18/24 05:52 Micro: Microbiology 02/16/24 23:59 Blood Culture - Preliminary Blood NEGATIVE TO DATE 02/16/24 23:45 Blood Culture - Preliminary Blood NEGATIVE TO DATE A&P Assessment and plan (1) CAD (coronary artery disease): (2) Chronic back pain: (3) Chronic obstructive pulmonary disease: (4) Left lower lobe pulmonary infiltrate: (5) Chronic hypercapnic respiratory failure: (6) Acute exacerbation of chronic obstructive airways disease: (7) Acute respiratory failure with hypoxia and hypercapnia: (8) Generalized anxiety disorder: (9) Schizoaffective disorder, depressive type: (10) Chest pain: (11) Severe protein-calorie malnutrition: (12) Body mass index (BMI) less than 16.5: (13) Physical deconditioning: (14) Muscle wasting: (15) Protein calorie malnutrition: (16) Healthcare-associated pneumonia: Plan # Acute hypoxic respiratory failure #Multifocal pneumonia, healthcare associated pneumonia #Severe COPD exacerbation # Chest pain #Schizoaffective disorder #Generalized anxiety disorder #CAD #Arthritis #Hypertension # BMI 16.6, severe protein calorie malnutrition, physical deconditioning, muscle loss secondary to severe COPD -CTA chest - CT/CT angio chest PE protcl [id number] IMPRESSION: 1. Multifocal airspace disease, diffuse bronchial wall thickening, and multifocal tracheobronchial debris with peripheral bronchial occlusions. Findings are compatible with bronchopneumonia and acute on chronic bronchitis. 2. No findings of acute pulmonary embolism. No acute abnormality of the thoracic aorta. ? Patient is on 3.5 L nasal cannula at baseline. He follows with Dr. Rooney as an outpatient. Patient does have history of end-stage severe COPD and has a weight loss of over 20 pounds in the last 6 to 8 months. He is wheelchair-bound with hip fracture and smoking history of 50 years a pack per day. He has severe emphysema as evidenced on PFTs. Patient is a chronic CO2 retainer with bicarb 28-30. He has had multiple exacerbations and is on maximum inhaler therapy as well as Roflumilast 500 mg daily. Azithromycin 3 times a week was also added. He last saw pulmonology in September and he was discharged with BiPAP prescription with settings of 25/04 however patient did not tolerated. Patient has had difficulty to clearing his secretions. He is apparently now on prednisone 5 mg twice daily. Patient will benefit from AVAPS to prevent future COPD admissions but Medicaid denied noninvasive ventilation. In May 2023 patient restarted smoking. Above information obtained from chart. Apparently he was recommended hospice at his previous [facility] hospitalization which was 4 days ago. At this point his x-ray from outside facility indicates multifocal pneumonia which is similar to x-ray from 01/17 as per report. I do not have images to compare from outside facility today. Plan -Smoking cessation counseling -BiPAP as needed for shortness of breath -Continue vancomycin, Zosyn, azithromycin for healthcare associate pneumonia given recent hospitalization ? Check sputum Gram stain culture, blood cultures ? DuoNeb every 6 hours scheduled ? Placed on Solu-Medrol 60 every 8 hours ? He is on inhaled Pulmicort twice daily ? Continue atorvastatin, aspirin ? He says he has been referred to a new hat cone inspector and will be seeing them at the end of February in [place]. ? Continue oxygen supplementation. May use BiPAP if needed however at this time patient appears to be compensating well on nasal cannula. He is saturating 97%. ? Cardiac echo, serial troponins, telemetry monitoring -Consult dietary, add Ensure to his meals, PT OT DNR/DNI. Had a goals of care discussion with the patient. He states that he does not want chest compressions however may consider ventilator but at the end he said he does not want the ventilator either. I did not discuss hospice with him. Will need to confirm patient's home medications. Plan for today currently receiving steroids, antibiotics, monitor respiratory status closely Attestations 2 Medical Necessity Statement*: Patient requires hospitalization for acute hypoxic respiratory failure secondary COPD, healthcare associated pneumonia Diagnoses CAD (coronary artery disease) I25.10 Chronic back pain M54.9; G89.29 Chronic obstructive pulmonary disease J44.9 Left lower lobe pulmonary infiltrate R91.8 Chronic hypercapnic respiratory failure J96.12 Acute exacerbation of chronic obstructive airways disease J44.1 Acute respiratory failure with hypoxia and hypercapnia J96.01; J96.02 Generalized anxiety disorder F41.1 Schizoaffective disorder, depressive type F25.1 Chest pain R07.9 Severe protein-calorie malnutrition E43 Body mass index (BMI) less than 16.5 Z68.1 Physical deconditioning R53.81 Muscle wasting M62.50 Protein calorie malnutrition E46 Healthcare-associated pneumonia J18.9
[2024-02-18 18:20] LABS: Vancomycin Trough 5.8 ug/mL (10-15)
[2024-02-18] MEDS: vancomycin 1,000 MG in sodium chloride 0.9% 250 ML 250 MG IV (20:05)
[2024-02-18] MEDS: pantoprazole 40 mg SDV IVP (21:50)
[2024-02-19] VITALS (15 sets, daily range): BP systolic 119–146; BP diastolic 76–89; PULSE 71–98; RESP 16–271; TEMP 36.4–36.9; O2SAT 93–98
[2024-02-19] MEDS: azithromycin 500 MG in sodium chloride 0.9% 250 ML 250 MG IV ×2 (00:23→23:19)
[2024-02-19] MEDS: methylPREDNISolone sod succ 40 mg/mL INJ IVP ×4 (00:23→23:19)
[2024-02-19] MEDS: piperacillin-tazobactam 3.375 GM in sodium chloride 0.9% (plus) 50 ML IV ×3 (01:29→19:00)
[2024-02-19] MEDS: morphine 4 mg/mL SDV 1 mL 1 MG IVP ×4 (01:32→20:08)
[2024-02-19 03:56] LABS: Basophils # 0.1 10^3/uL (0.0-0.1); Basophils % 0.4 %; Hematocrit 34.8 % (37-53); Lymphocytes # 0.3 10^3/uL (0.8-4.8); Lymphocytes % 2.9 %; Mean Corpuscular HGB Conc 32.2 g/dL (30-55); Mean Corpuscular Hemoglobin 31.8 pg (27-33); Mean Corpuscular Volume 98.9 fl (82-101); Mean Platelet Volume 8.7 fL (7.4-10.4); Monocytes # 0.5 10^3/uL (0.2-0.9); Monocytes % 4.5 %; Neutrophils # 9.77 10^3/uL (1.8-7.7); Neutrophils % 87.5 %; Nucleated Red Blood Cells % 0 %; Platelet Count 310 10^3/cmm (157-399); Red Blood Count 3.52 10^6/uL (3.85-5.65); Red Cell Distribution Width 12.4 % (12.1-15.1); White Blood Count 11.17 10^3/uL (3.29-11.43)
[2024-02-19 04:21] LABS: Anion Gap 9.2 (5-19); Blood Urea Nitrogen 4 mg/dL (8-23); Calcium 8.3 mg/dL (8.5-10.5); Chloride 95 mmol/L (98-107); Creatinine Clr Calc Pharmacy 64.5547; Glomerular Filtration Rate 300.9 mL/min (90-130); Glucose 121 mg/dL (65-115); Osmolality Calculated 290 mOsm/kg (285-295); Potassium 4.2 mmol/L (3.5-5.1); Sodium 141 mmol/L (136-145)
[2024-02-19 04:35] LABS: Carbon Dioxide 41 mmol/L (22-29)
[2024-02-19] MEDS: OLANZapine 10 mg TABLET PO (05:50)
[2024-02-19] MEDS: vancomycin 1,000 MG in sodium chloride 0.9% 250 ML 250 MG IV ×2 (08:22→20:40)
[2024-02-19] MEDS: multivitamin therapeutic Tablet 1 TAB PO (08:23)
[2024-02-19] MEDS: folic acid 1 mg Tablet PO (08:23)
[2024-02-19] MEDS: polyethylene glycol 3350 Pkt 17 gm PO (08:24)
[2024-02-19] MEDS: heparin 5,000 unit/mL INJ 1 mL 5000 UNIT SUBCUT ×2 (08:24→20:41)
[2024-02-19] MEDS: citalopram 20 mg Tablet 40 MG PO (08:24)
[2024-02-19] MEDS: aspirin 81 mg EC Tablet PO (08:24)
[2024-02-19] MEDS: atorvastatin 40 mg Tablet 80 MG PO (08:24)
[2024-02-19] MEDS: thiamine 100 mg Tablet PO (08:24)
[2024-02-19] MEDS: budesonide 0.5 mg/2 mL Neb INHALATION (09:10)
[2024-02-19] MEDS: ipratropium-albuterol 3 mL Neb INHALATION ×3 (09:11→16:09)
[2024-02-19] MEDS: CALCIUM CARBONATE 600 MG TABLET PO (10:18)
--- NOTE | 2024-02-19 11:51 | PC.SOCIAL ---
IMM Updated Updated pt & his on IMM. No questions voiced. Provided pt a copy. Initialed, dated, & timed copy in chart.
[2024-02-19] MEDS: lactulose oral liq 20 gm/30 mL UDC 30 GM PO (12:43)
--- NOTE | 2024-02-19 17:35 | P.PN_ITS ---
Subjective 2 Subjective: Patient was seen this morning, continues to have fatigue, malaise, shortness of breath, cough Vitals/I&O/Wt Last Vital Signs Temp 97.6 F 02/19/24 16:00 Pulse 84 02/19/24 16:00 Resp 21 H 02/19/24 16:00 BP 133/81 02/19/24 16:00 Pulse Ox 95 02/19/24 16:00 O2 Del Method Nasal Cannula 02/19/24 16:00 O2 Flow Rate 3 02/19/24 16:00 FiO2 35 02/18/24 00:00 02/19/24 02/19/24 02/19/24 06:59 14:59 22:59 Intake Total 300 / 1140 606 / 606 50 / 656 Output Total 1625 / 5500 850 / 850 325 / 1175 Balance -1325 / -4360 -244 / -244 -275 / -519 Weight last 48 hrs Weight 44.679 kg Weight 49.578 kg Physical Exam 2 Const: COMMON NORMALS: no acute distress and patient oriented x3 Resp: COMMON NORMALS: normal respiratory effort, No retractions and No use of accessory muscles AUSCULTATION: wheezes Cardio: COMMON NORMALS: regular rate, regular rhythm, S1 normal heart sound present and S2 normal heart sound present RATE: regular rate RHYTHM: r egular rhythm HEART SOUNDS: S1 normal heart sound present and S2 normal heart sound present GI: COMMON NORMALS: Normal to inspection, nondistended, normoactive bowel sounds present and non-tender Extremity: COMMON NORMALS: no pedal edema Neuro: COMMON NORMALS: patient oriented x3 Psych: COMMON NORMALS: mental status grossly normal Urinary Catheter Management: Morgan: Cath Placed During This Visit: yes Reason for Continuing Indwelling Catheter: Acute Urinary Retention or Obstruction Urinary Catheter Date of Insertion: 02/17/24 Urinary Catheter Time of Insertion: 11:38 Data 02/19/24 03:18 02/19/24 03:18 A&P Assessment and plan (1) CAD (coronary artery disease): (2) Chronic back pain: (3) Chronic obstructive pulmonary disease: (4) Left lower lobe pulmonary infiltrate: (5) Chronic hypercapnic respiratory failure: (6) Acute exacerbation of chronic obstructive airways disease: (7) Acute respiratory failure with hypoxia and hypercapnia: (8) Generalized anxiety disorder: (9) Schizoaffective disorder, depressive type: (10) Chest pain: (11) Severe protein-calorie malnutrition: (12) Body mass index (BMI) less than 16.5: (13) Physical deconditioning: (14) Muscle wasting: (15) Protein calorie malnutrition: (16) Healthcare-associated pneumonia: Plan # Acute hypoxic respiratory failure #Multifocal pneumonia, healthcare associated pneumonia #Severe COPD exacerbation # Chest pain #Schizoaffective disorder #Generalized anxiety disorder #CAD #Arthritis #Hypertension # BMI 16.6, severe protein calorie malnutrition, physical deconditioning, muscle loss secondary to severe COPD -CTA chest - CT/CT angio chest PE protcl [id number] IMPRESSION: 1. Multifocal airspace disease, diffuse bronchial wall thickening, and multifocal tracheobronchial debris with peripheral bronchial occlusions. Findings are compatible with bronchopneumonia and acute on chronic bronchitis. 2. No findings of acute pulmonary embolism. No acute abnormality of the thoracic aorta. ? Patient is on 3.5 L nasal cannula at baseline. He follows with Dr. Rooney as an outpatient. Patient does have history of end-stage severe COPD and has a weight loss of over 20 pounds in the last 6 to 8 months. He is wheelchair-bound with hip fracture and smoking history of 50 years a pack per day. He has severe emphysema as evidenced on PFTs. Patient is a chronic CO2 retainer with bicarb 28-30. He has had multiple exacerbations and is on maximum inhaler therapy as well as Roflumilast 500 mg daily. Azithromycin 3 times a week was also added. He last saw pulmonology in September and he was discharged with BiPAP prescription with settings of 25/04 however patient did not tolerated. Patient has had difficulty to clearing his secretions. He is apparently now on prednisone 5 mg twice daily. Patient will benefit from AVAPS to prevent future COPD admissions but Medicaid denied noninvasive ventilation. In May 2023 patient restarted smoking. Above information obtained from chart. Apparently he was recommended hospice at his previous [facility] hospitalization which was 4 days ago. At this point his x-ray from outside facility indicates multifocal pneumonia which is similar to x-ray from 01/17 as per report. I do not have images to compare from outside facility today. Plan -Smoking cessation counseling -BiPAP as needed for shortness of breath -Continue vancomycin, Zosyn, azithromycin for healthcare associate pneumonia given recent hospitalization ? Check sputum Gram stain culture, blood cultures ? DuoNeb every 6 hours scheduled ? Placed on Solu-Medrol 60 every 8 hours ? He is on inhaled Pulmicort twice daily ? Continue atorvastatin, aspirin ? 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 ? Continue oxygen supplementation. May use BiPAP if needed however at this time patient appears to be compensating well on nasal cannula. He is saturating 97%. ? Cardiac echo, serial troponins, telemetry monitoring -Consult dietary, add Ensure to his meals, PT OT DNR/DNI. Had a goals of care discussion with the patient. He states that he does not want chest compressions however may consider ventilator but at the end he said he does not want the ventilator either. I did not discuss hospice with him. Will need to confirm patient's home medications. Plan for today currently receiving steroids, antibiotics, monitor respiratory status closely Attestations 2 Medical Necessity Statement*: Patient requires hospitalization for COPD exacerbation, healthcare associated pneumonia Diagnoses CAD (coronary artery disease) I25.10 Chronic back pain M54.9; G89.29 Chronic obstructive pulmonary disease J44.9 Left lower lobe pulmonary infiltrate R91.8 Chronic hypercapnic respiratory failure J96.12 Acute exacerbation of chronic obstructive airways disease J44.1 Acute respiratory failure with hypoxia and hypercapnia J96.01; J96.02 Generalized anxiety disorder F41.1 Schizoaffective disorder, depressive type F25.1 Chest pain R07.9 Severe protein-calorie malnutrition E43 Body mass index (BMI) less than 16.5 Z68.1 Physical deconditioning R53.81 Muscle wasting M62.50 Protein calorie malnutrition E46 Healthcare-associated pneumonia J18.9
[2024-02-19 19:32] LABS: Vancomycin Trough 11.8 ug/mL (10-15)
[2024-02-19] MEDS: pantoprazole 40 mg SDV IVP (23:19)
[2024-02-20] VITALS (14 sets, daily range): BP systolic 126–147; BP diastolic 80–90; PULSE 69–97; RESP 18–38; TEMP 36.3–36.8; O2SAT 91–99
[2024-02-20] MEDS: morphine 4 mg/mL SDV 1 mL 1 MG IVP ×5 (02:28→22:22)
[2024-02-20] MEDS: piperacillin-tazobactam 3.375 GM in sodium chloride 0.9% (plus) 50 ML IV ×3 (02:29→17:17)
[2024-02-20 04:54] LABS: Basophils % 0.3 %; Hematocrit 32.2 % (37-53); Lymphocytes # 0.3 10^3/uL (0.8-4.8); Mean Corpuscular Hemoglobin 31.7 pg (27-33); Mean Corpuscular Volume 99.1 fl (82-101); Mean Platelet Volume 8.6 fL (7.4-10.4); Monocytes # 0.5 10^3/uL (0.2-0.9); Neutrophils # 7.75 10^3/uL (1.8-7.7); Neutrophils % 85.8 %; Nucleated Red Blood Cells % 0 %; Platelet Count 269 10^3/cmm (157-399); Red Blood Count 3.25 10^6/uL (3.85-5.65); Red Cell Distribution Width 12.3 % (12.1-15.1); White Blood Count 9.03 10^3/uL (3.29-11.43)
[2024-02-20 05:20] LABS: Blood Urea Nitrogen 5 mg/dL (8-23); Calcium 8.4 mg/dL (8.5-10.5); Chloride 94 mmol/L (98-107); Creatinine Clr Calc Pharmacy 59.0612; Glomerular Filtration Rate 300.9 mL/min (90-130); Glucose 108 mg/dL (65-115); Osmolality Calculated 288 mOsm/kg (285-295); Sodium 140 mmol/L (136-145)
[2024-02-20] MEDS: OLANZapine 10 mg TABLET PO (05:22)
[2024-02-20 05:33] LABS: Carbon Dioxide 41 mmol/L (22-29)
[2024-02-20] MEDS: vancomycin 1,000 MG in sodium chloride 0.9% 250 ML 250 MG IV (08:25)
[2024-02-20] MEDS: methylPREDNISolone sod succ 40 mg/mL INJ IVP ×2 (08:25→17:17)
[2024-02-20] MEDS: heparin 5,000 unit/mL INJ 1 mL 5000 UNIT SUBCUT ×2 (08:26→21:02)
[2024-02-20] MEDS: CALCIUM CARBONATE 600 MG TABLET PO (08:26)
[2024-02-20] MEDS: multivitamin therapeutic Tablet 1 TAB PO (08:26)
[2024-02-20] MEDS: thiamine 100 mg Tablet PO (08:27)
[2024-02-20] MEDS: folic acid 1 mg Tablet PO (08:27)
[2024-02-20] MEDS: citalopram 20 mg Tablet 40 MG PO (08:27)
[2024-02-20] MEDS: atorvastatin 40 mg Tablet 80 MG PO (08:27)
[2024-02-20] MEDS: aspirin 81 mg EC Tablet PO (08:27)
--- NOTE | 2024-02-20 11:28 | PM.PN ---
Subjective Subjective: Patient was seen this morning, denies any fevers, chills, does have a cough Vitals/I&O/Wt Last Vital Signs Temp 97.6 F 02/20/24 07:16 Pulse 97 02/20/24 08:00 Resp 30 H 02/20/24 08:00 BP 138/80 02/20/24 07:16 Pulse Ox 98 02/20/24 08:00 O2 Del Method Nasal Cannula 02/20/24 08:00 O2 Flow Rate 4 02/20/24 08:00 FiO2 35 02/18/24 00:00 02/19/24 02/20/24 02/20/24 22:59 06:59 14:59 Intake Total 710 / 1316 800 / 2116 370 / 370 Output Total 325 / 1175 2150 / 2150 Balance 385 / 141 800 / 941 -1780 / -1780 Weight last 48 hrs Weight 45.359 kg Weight 44.679 kg Physical Exam Const: COMMON NORMALS: no acute distress and patient oriented x3 Resp: COMMON NORMALS: normal respiratory effort, No retractions and No use of accessory muscles AUSCULTATION: wheezes Cardio: COMMON NORMALS: regular rate, regular rhythm, S1 normal heart sound present and S2 normal heart sound present RATE: regular rate RHYTHM: regular rhythm HEART SOUNDS: S1 normal heart sound present and S2 normal heart sound present GI: COMMON NORMALS: Normal to inspection, nondistended, normoactive bowel sounds present and non-tender Extremity: COMMON NORMALS: no pedal edema Neuro: COMMON NORMALS: patient oriented x3 Psych: COMMON NORMALS: mental status grossly normal Urinary Catheter Management: Morgan: Cath Placed During This Visit: yes Reason for Continuing Indwelling Catheter: Other Urinary Catheter Date of Insertion: 02/17/24 Urinary Catheter Time of Insertion: 11:38 Data 02/20/24 04:32 02/20/24 04:32 A&P Assessment and plan (1) CAD (coronary artery disease): (2) Chronic back pain: (3) Chronic obstructive pulmonary disease: (4) Left lower lobe pulmonary infiltrate: (5) Chronic hypercapnic respiratory failure: (6) Acute exacerbation of chronic obstructive airways disease: (7) Acute respiratory failure with hypoxia and hypercapnia: (8) Generalized anxiety disorder: (9) Schizoaffective disorder, depressive type: (10) Chest pain: (11) Severe protein-calorie malnutrition: (12) Body mass index (BMI) less than 16.5: (13) Physical deconditioning: (14) Muscle wasting: (15) Protein calorie malnutrition: (16) Healthcare-associated pneumonia: Plan # Acute hypoxic respiratory failure #Multifocal pneumonia, healthcare associated pneumonia #Severe COPD exacerbation # Chest pain #Schizoaffective disorder #Generalized anxiety disorder #CAD #Arthritis #Hypertension # BMI 16.6, severe protein calorie malnutrition, physical deconditioning, muscle loss secondary to severe COPD -CTA chest - CT/CT angio chest PE protcl [id number] IMPRESSION: 1. Multifocal airspace disease, diffuse bronchial wall thickening, and multifocal tracheobronchial debris with peripheral bronchial occlusions. Findings are compatible with bronchopneumonia and acute on chronic bronchitis. 2. No findings of acute pulmonary embolism. No acute abnormality of the thoracic aorta. ? Patient is on 3.5 L nasal cannula at baseline. He follows with Dr. Rooney as an outpatient. Patient does have history of end-stage severe COPD and has a weight loss of over 20 pounds in the last 6 to 8 months. He is wheelchair-bound with hip fracture and smoking history of 50 years a pack per day. He has severe emphysema as evidenced on PFTs. Patient is a chronic CO2 retainer with bicarb 28-30. He has had multiple exacerbations and is on maximum inhaler therapy as well as Roflumilast 500 mg daily. Azithromycin 3 times a week was also added. He last saw pulmonology in September and he was discharged with BiPAP prescription with settings of 25/04 however patient did not tolerated. Patient has had difficulty to clearing his secretions. He is apparently now on prednisone 5 mg twice daily. Patient will benefit from AVAPS to prevent future COPD admissions but Medicaid denied noninvasive ventilation. In May 2023 patient restarted smoking. Above information obtained from chart. Apparently he was recommended hospice at his previous [facility] hospitalization which was 4 days ago. At this point his x-ray from outside facility indicates multifocal pneumonia which is similar to x-ray from 01/17 as per report. I do not have images to compare from outside facility today. Plan -Smoking cessation counseling -BiPAP as needed for shortness of breath -Continue vancomycin, Zosyn, azithromycin for healthcare associate pneumonia given recent hospitalization ? Check sputum Gram stain culture, blood cultures ? DuoNeb every 6 hours scheduled ? Placed on Solu-Medrol 60 every 8 hours ? He is on inhaled Pulmicort twice daily ? Continue atorvastatin, aspirin ? 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 ? Continue oxygen supplementation. May use BiPAP if needed however at this time patient appears to be compensating well on nasal cannula. He is saturating 97%. ? Cardiac echo, serial troponins, telemetry monitoring -Consult dietary, add Ensure to his meals, PT OT DNR/DNI. Had a goals of care discussion with the patient. He states that he does not want chest compressions however may consider ventilator but at the end he said he does not want the ventilator either. I did not discuss hospice with him. Will need to confirm patient's home medications. Plan for today currently receiving steroids, antibiotics, monitor respiratory status closely Attestations Medical Necessity Statement*: Patient requires hospitalization for COPD exacerbation, pneumonia Diagnoses CAD (coronary artery disease) I25.10 Chronic back pain M54.9; G89.29 Chronic obstructive pulmonary disease J44.9 Left lower lobe pulmonary infiltrate R91.8 Chronic hypercapnic respiratory failure J96.12 Acute exacerbation of chronic obstructive airways disease J44.1 Acute respiratory failure with hypoxia and hypercapnia J96.01; J96.02 Generalized anxiety disorder F41.1 Schizoaffective disorder, depressive type F25.1 Chest pain R07.9 Severe protein-calorie malnutrition E43 Body mass index (BMI) less than 16.5 Z68.1 Physical deconditioning R53.81 Muscle wasting M62.50 Protein calorie malnutrition E46 Healthcare-associated pneumonia J18.9
[2024-02-20] MEDS: pantoprazole 40 mg SDV IVP (22:23)
[2024-02-21] VITALS (9 sets, daily range): BP systolic 119–138; BP diastolic 74–84; PULSE 70–105; RESP 18–39; TEMP 36.4–36.7; O2SAT 90–100
[2024-02-21] MEDS: methylPREDNISolone sod succ 40 mg/mL INJ IVP ×2 (01:09→08:21)
[2024-02-21] MEDS: piperacillin-tazobactam 3.375 GM in sodium chloride 0.9% (plus) 50 ML IV ×2 (03:06→10:26)
[2024-02-21] MEDS: OLANZapine 10 mg TABLET PO (05:04)
[2024-02-21] MEDS: morphine 4 mg/mL SDV 1 mL 1 MG IVP ×2 (05:04→12:01)
[2024-02-21] MEDS: citalopram 20 mg Tablet 40 MG PO (08:20)
[2024-02-21] MEDS: folic acid 1 mg Tablet PO (08:21)
[2024-02-21] MEDS: CALCIUM CARBONATE 600 MG TABLET PO (08:21)
[2024-02-21] MEDS: atorvastatin 40 mg Tablet 80 MG PO (08:21)
[2024-02-21] MEDS: aspirin 81 mg EC Tablet PO (08:21)
[2024-02-21] MEDS: multivitamin therapeutic Tablet 1 TAB PO (08:21)
[2024-02-21] MEDS: thiamine 100 mg Tablet PO (08:21)
[2024-02-21] MEDS: heparin 5,000 unit/mL INJ 1 mL 5000 UNIT SUBCUT (08:21)
--- NOTE | 2024-02-21 11:06 | PC.SOCIAL ---
IMM Updated Updated pt on IMM. No questions voiced. Provided pt a copy. Initialed, dated, & timed copy in chart.
--- NOTE | 2024-02-21 11:33 | P.DS_ITS ---
Discharge Providers Date of Admission: 02/16/24 19:49 Date of Discharge: February 21, 2024 Attending Provider at Admission: Marlene Scott MD Attending Provider at Discharge: Nikita Lopez MD Primary Care Provider: GUILLERMINA Grady Diagnoses at Discharge Discharge Diagnosis (1) CAD (coronary artery disease): Status: Acute (2) Chronic back pain: Status: Chronic (3) Chronic obstructive pulmonary disease: Status: Chronic (4) Left lower lobe pulmonary infiltrate: Status: Acute (5) Chronic hypercapnic respiratory failure: Status: Acute (6) Acute exacerbation of chronic obstructive airways disease: Status: Acute (7) Acute respiratory failure with hypoxia and hypercapnia: Status: Acute (8) Generalized anxiety disorder: Status: Acute (9) Schizoaffective disorder, depressive type: Status: Acute (10) Chest pain: Status: Acute (11) Severe protein-calorie malnutrition: Status: Acute (12) Body mass index (BMI) less than 16.5: Status: Acute (13) Physical deconditioning: Status: Acute (14) Muscle wasting: Status: Acute (15) Protein calorie malnutrition: Status: Acute (16) Healthcare-associated pneumonia: Status: Acute Hospital Course Hospital Course Akira Goss Jr is a 63 year old male Akira Goss Jr is a 63 year old male with past medical history significant for COPD with chronic hypoxic respiratory failure on 3 to 4 L baseline, generalized anxiety disorder, tobacco use disorder in remission, coronary artery disease, osteoarthritis, hypertension, and schizoaffective disorder who presented emergency department to [facility] for shortness of breath. He presented to the outside facility for respiratory distress. Patient was on 4 L nasal cannula with 94% saturation. He was given DuoNeb on route and felt better thereafter. He was tachypneic. He recently discharged from [facility] on 02/12. As per ER note from outside facility it is listed that while patient was at [facility] previously he was referred for hospice however has not had any follow-up with them. Patient was found to have elevated lactic acid 2.3 white cell count 29. Apparently patient started complaining of chest pain and was provided Nitropaste and aspirin 324 chewable. D-dimer negative ESR normal CRP 26. Chest x-ray came back revealing multifocal pneumonia. Patient was placed on azithromycin and ceftriaxone recently and had hospitalization within the last 3 months therefore was started on vancomycin and cefepime and blood cultures were collected. Patient did have 2 troponins done with values of 16 and 14 with a delta of -2. He was placed on high flow nasal cannula for comfort and transferred to [facility] as per patient's request. Patient seen in room 276 on arrival to the hospital. He is currently sitting up in bed breathing with pursed lips. He says this is usually how he breathes. He has a muffled voice and says he has been intubated in the past. Thereafter patient cleared his throat and started speaking normally. Initially he was whispering. He states he was at [facility] recently. He is not sure if he was diagnosed with pneumonia he says he is normally short of breath but today he is a little extra short of breath. He is on baseline 3.5 L nasal cannula and requiring the same here. Did do a goals of care discussion with the patient to which he stated he does not want to be intubated or have CPR done. He wants to be a DNR at this time. Patient presented to [facility] for acute hypoxic respiratory failure secondary TO PNEUMONIA, COPD EXACERBATION, WITH SEVERE PROTEIN CALORIE MALNUTRITION, PHYSICAL DECONDITIONING, MUSCLE LOSS, UNDERLYING SEVERE COPD. Patient received broad-spectrum antibiotic therapy, steroid therapy, his condition did improve, but continued to have episodes of shortness of breath, cough, wheezing likely related to his underlying severe COPD. He will be discharged on a course of prednisone, and Levaquin, with a follow-up with primary care provider. In addition patient has elected for hospice in the near future, and he wants to start it as outpatient, he will follow-up with hospice companies/primary care to get this set up. Physical Exam Const: COMMON NORMALS: no acute distress and patient oriented x3 Resp: COMMON NORMALS: normal respiratory effort, No retractions, No use of accessory muscles and clear to auscultation bilaterally AUSCULTATION: clear to auscultation bilaterally Cardio: COMMON NORMALS: regular rate, regular rhythm, S1 normal heart sound present and S2 normal heart sound present RATE: regular rate RHYTHM: regular rhythm HEART SOUNDS: S1 normal heart sound present and S2 normal heart sound present GI: COMMON NORMALS: Normal to inspection, nondistended, normoactive bowel sounds present and non-tender Extremity: COMMON NORMALS: no pedal edema Neuro: COMMON NORMALS: patient oriented x3 Psych: COMMON NORMALS: mental status grossly normal Urinary Catheter Management: Morgan: Cath Placed During This Visit: yes Reason for Continuing Indwelling Catheter: Accurate Measurement of Urinary Output in Critically Ill Patients Urinary Catheter Date of Insertion: 02/17/24 Urinary Catheter Time of Insertion: 11:38 Discharge Data Studies Completed and Pending Completed Studies During Hospitalization Category Date Time Status CTA chest [CT angio chest PE protcl [id number]] Stat Cat Scan 02/16/24 23:09 C ompleted CV. echo complete* [id number] Routine Ultrasound 02/17/24 15:01 Completed Pending at discharge Category Date Time Status Blood Culture Routine Lab 02/16/24 23:59 Results Sputum Culture and Gram Stain Stat Lab 02/16/24 23:05 Uncollected Radiology Impressions Chest CTA 02/16/24 23:09 IMPRESSION: 1. Multifocal airspace disease, diffuse bronchial wall thickening, and multifocal tracheobronchial debris with peripheral bronchial occlusions. Findings are compatible with bronchopneumonia and acute on chronic bronchitis. 2. No findings of acute pulmonary embolism. No acute abnormality of the thoracic aorta. COMMENTS: The presence of pulmonary emphysema on CT is an independent risk factor for lung cancer. In the absence of a history or active diagnosis of lung cancer, it is recommended that this patient with emphysema be evaluated for enrollment in a low dose CT lung cancer screening program. Laboratory Results WBC 9.03 10^3/uL (3.29-11.43) 02/20/24 04:32 RBC 3.25 10^6/uL (3.85-5.65) L 02/20/24 04:32 Hgb 10.30 g/dL (11.27-16.99) L 02/20/24 04:32 Hct 32.2 % (37-53) L 02/20/24 04:32 MCV 99.1 fl (82-101) 02/20/24 04:32 MCH 31.7 pg (27-33) 02/20/24 04:32 MCHC 32.0 g/dL (30-55) 02/20/24 04:32 RDW 12.3 % (12.1-15.1) 02/20/24 04:32 Plt Count 269 10^3/cmm (157-399) 02/20/24 04:32 MPV 8.6 fL (7.4-10.4) 02/20/24 04:32 Neut % (Auto) 85.8 % 02/20/24 04:32 Lymph % (Auto) 3.0 % 02/20/24 04:32 Woodson % (Auto) 6.0 % 02/20/24 04:32 Eos % (Auto) 0.0 % 02/20/24 04:32 Baso % (Auto) 0.3 % 02/20/24 04:32 Neut # (Auto) 7.75 10^3/uL (1.8-7.7) H 02/20/24 04:32 Lymph # (Auto) 0.3 10^3/uL (0.8-4.8) L 02/20/24 04:32 Woodson # (Auto) 0.5 10^3/uL (0.2-0.9) 02/20/24 04:32 Eos # (Auto) 0.0 10^3/uL (0.0-0.8) 02/20/24 04:32 Baso # (Auto) 0.0 10^3/uL (0.0-0.1) 02/20/24 04:32 Nucleated RBC % (auto) 0 % 02/20/24 04:32 Nucleated RBCs # 0.0 /100WBC 02/20/24 04:32 D-Dimer 0.38 ug/mLFEU (0-0.59) 02/16/24 23:45 Specimen Type Venous 02/17/24 00:40 Sample Site Brachial, right 02/17/24 00:40 ABG pH 7.35 (7.35-7.45) 02/17/24 00:40 ABG pCO2 70.4 mmHg (35-45) H* 02/17/24 00:40 ABG pO2 29.3 mmHg (80.0-100.0) L* 02/17/24 00:40 ABG HCO3 39.1 mmol/L (22-26) H 02/17/24 00:40 ABG O2 Saturation 55.0 02/17/24 00:40 ABG Base Excess 11.1 mmol/L (-2.0-2.0) H 02/17/24 00:40 Mariusz Test N/a 02/17/24 00:40 A-a O2 Gradient Not Reportable 02/17/24 00:40 Hematocrit 33.4 % (42-52) L 02/17/24 00:40 Hgb O2 Saturation 53.8 % (95-100) L 02/17/24 00:40 Carboxyhemoglobin 1.6 %THgb (0.4-20.1) 02/17/24 00:40 Methemoglobin 0.7 % (0.4-1.5) 02/17/24 00:40 Total Hemoglobin 10.9 g/dL (14-18) L 02/17/24 00:40 Sodium 133.0 mmol/L (131-143) 02/17/24 00:40 Potassium 4.1 mmol/L (3.5-5.0) 02/17/24 00:40 Glucose 105.0 mg/dL (70-115) 02/17/24 00:40 Ionized Calcium 1.1 mmol/L (1.1-1.4) 02/17/24 00:40 O2 Delivery Device Nc 02/17/24 00:40 O2 Liters/Min 4.0 % 02/17/24 00:40 [employer]erglass Boat [employer] ID Anson 02/17/24 00:40 Sodium 140 mmol/L (136-145) 02/20/24 04:32 Potassium 4.0 mmol/L (3.5-5.1) 02/20/24 04:32 Chloride 94 mmol/L (98-107) L 02/20/24 04:32 Carbon Dioxide 41 mmol/L (22-29) H 02/20/24 04:32 Anion Gap 9.0 (5-19) 02/20/24 04:32 BUN 5 mg/dL (8-23) L 02/20/24 04:32 Creatinine 0.3 mg/dL (0.7-1.2) L 02/20/24 04:32 GFR Calculation 300.9 mL/min (90-130) H 02/20/24 04:32 Glucose 108 mg/dL (65-115) 02/20/24 04:32 Calculated Osmolality 288 mOsm/kg (285-295) 02/20/24 04:32 Lactic Acid 3.2 mmol/L (0.5-2.2) H 02/16/24 23:45 Lactic Acid (Sepsis) 1.5 mmol/L (0.5-2.2) 02/17/24 03:57 Lactate Cancelled 02/16/24 23:43 Calcium 8.4 mg/dL (8.5-10.5) L 02/20/24 04:32 Phosphorus 2.3 mg/dL (2.5-4.5) L 02/17/24 03:57 Magnesium 2.1 mg/dL (1.7-2.3) 02/17/24 03:57 Total Bilirubin 0.4 mg/dL (0.15-1.2) 02/17/24 03:57 AST 12 U/L (0-40) 02/17/24 03:57 ALT 15 U/L (0-41) 02/17/24 03:57 Alkaline Phosphatase 70 U/L (40-130) 02/17/24 03:57 Troponin T Baseline 14 ng/L (0-15) 02/17/24 15:42 Troponin T 120 Minute 12.04 ng/L (0-15) 02/17/24 20:41 Delta Troponin T -1.96 ABS# (0-10) L 02/17/24 20:41 Troponin T Hi Sens 6Hr 12.23 ng/L (0-15) 02/17/24 21:35 Troponin T Hi Sens 6Hr Delta -1.77 ng/L (0-12) L 02/17/24 21:35 NT-Pro-B Natriuret Pep 403 pg/mL (0-125) H 02/16/24 23:45 Total Protein 5.6 g/dL (6.6-8.7) L 02/17/24 03:57 Albumin 3.3 g/dL (3.5-5.2) L 02/17/24 03:57 Globulin 2.3 g/dL (1.3-4.6) 02/17/24 03:57 Procalcitonin 0.79 ng/mL (0-0.5) H 02/16/24 23:45 Vancomycin Trough 11.8 ug/mL (10-15) 02/19/24 19:05 Adenovirus (PCR) Not detected (NOT DETECT) 02/17/24 02:16 C. pneumoniae DNA (PCR) Not detected (NOT DETECT) 02/17/24 02:16 Coronavirus 229E (PCR) Not detected (NOT DETECT) 02/17/24 02:16 Human Metapneumovir PCR Not detected (NOT DETECT) 02/17/24 02:16 Influenza A (H1) PCR Not detected (NOT DETECT) 02/17/24 02:16 Influ A (H1/09) PCR Not detected (NOT DETECT) 02/17/24 02:16 Influenza A (H3) PCR Not detected (NOT DETECT) 02/17/24 02:16 Influenza Type A (PCR) Not detected (NOT DETECT) 02/17/24 02:16 Influenza Type B (PCR) Not detected (NOT DETECT) 02/17/24 02:16 M. pneumoniae (PCR) Not detected (NOT DETECT) 02/17/24 02:16 Parainfluenza 1 (PCR) Not detected (NOT DETECT) 02/17/24 02:16 Parainfluenza 2 (PCR) Not detected (NOT DETECT) 02/17/24 02:16 Parainfluenza 3 (PCR) Not detected (NOT DETECT) 02/17/24 02:16 Parainfluenza 4 (PCR) Not detected (NOT DETECT) 02/17/24 02:16 RSV Type A (PCR) Not detected (NOT DETECT) 02/17/24 02:16 RSV Type B (PCR) Not detected (NOT DETECT) 02/17/24 02:16 Entero/Rhino (PCR) Not detected (NOT DETECT) 02/17/24 02:16 SARS-CoV-2 (PCR) Not detected (NOT DETECT) 02/17/24 02:16 Vitals Last Vital Signs Temp 97.5 F L 02/21/24 08:00 Pulse 73 02/21/24 08:05 Resp 18 02/21/24 08:05 BP 126/78 02/21/24 08:00 Pulse Ox 90 02/21/24 08:05 O2 Del Method Nasal Cannula 02/21/24 08:05 O2 Flow Rate 4 02/21/24 08:05 FiO2 35 02/18/24 00:00 Discharge Plan Discharge Patient Disposition: Hospice - Home Condition: Stable Prescriptions: New levofloxacin 750 mg tablet 750 mg PO DAILY 5 Days Qty: 5 0RF prednisone 10 mg tablet 10 mg PO DIRECTED Qty: 45 0RF Rx Instructions: 4 tabs a day for 5 days, 3 tabs for 5 days, 2 tabs for 5 days, then resume home prednisone Continued aspirin 81 mg tablet,delayed release (DR/EC) 81 mg PO DAILY Qty: 90 1RF atorvastatin 80 mg tablet 80 mg PO DAILY Qty: 90 1RF (DME) wheelchair See Rx Instructions .Route .MEDSUPPLY Qty: 1 0RF Rx Instructions: As directed ipratropium-albuterol 0.5 mg-3 mg(2.5 mg base)/3 mL solution for nebulization 3 ml inhalation Q8H PRN (Reason: Shortness Of Breath) calcium carbonate [Calcium 600] 600 mg calcium (1,500 mg) tablet 600 mg PO DAILY alendronate 70 mg tablet 70 mg PO Q7D Rx Instructions: SATURDAY thiamine HCl (vitamin B1) 100 mg tablet 100 mg PO DAILY levalbuterol HCl 1.25 mg/3 mL solution for nebulization 1.25 mg inhalation Q6H Qty: 90 0RF citalopram [Celexa] 40 mg tablet 40 mg PO DAILY Qty: 30 2RF Zyprexa 10 mg tablet 10 mg PO QAM Qty: 30 2RF Breztri Aerosphere 160-9-4.8 mcg/actuation HFA aerosol inhaler 2 inh INHALATION BID Qty: 10.7 3RF folic acid 1 mg tablet 1 mg PO DAILY multivitamin Tablet 1 tab PO DAILY trazodone 150 mg tablet 150 mg PO BEDTIME PRN (Reason: Sleep) cholecalciferol (vitamin D3) 125 mcg (5,000 unit) Capsule 125 mcg PO Q7D Rx Instructions: SATURDAY Combivent Respimat 20-100 mcg/actuation mist 1 puff INHALATION Q4H potassium citrate 99 mg Capsule 99 mg PO DAILY Held prednisone 5 mg tablet 5 mg PO BID Qty: 60 3RF Hold Instructions: Resume on 03/08/24. start when prednisone taper is completed azithromycin 250 mg tablet 250 mg PO .COMPLEX Qty: 18 1RF Hold Instructions: Resume on 02/27/24. Rx Instructions: 250 mg orally Take 1 Tab 3 times a week; Saturday, Saturday and Fridays; Discontinued carvedilol 3.125 mg tablet See Rx Instructions .ROUTE .COMPLEX Qty: 90 3RF Dose Instruction: TAKE 1 TABLET BY MOUTH EVERY 12 HOURS WITH A MEAL/FOOD Rx Instructions: TAKE 1 TABLET BY MOUTH EVERY 12 HOURS WITH A MEAL/FOOD prednisone 10 mg tablet See Taper PO DIRECTED Qty: 42 0RF Taper: predniSONE 60-10 60 mg Daily for 2 Days and 0 Hour 50 mg Daily for 2 Days and 0 Hour 40 mg Daily for 2 Days and 0 Hour 30 mg Daily for 2 Days and 0 Hour 20 mg Daily for 2 Days and 0 Hour 10 mg Daily for 2 Days and 0 Hour Rx Instructions: see taper instructions Discharge Orders: Discharge Order (Routine); Ordered 02/21/24 Ordered By: Nikita Lopez Referrals: [facility] [Other] TAMIA Greco, JACK [employer]IP [employer]SEMBLER [Primary Care Provider] - 02/28/24 10:00 am Discharge Diet: Cardiac Discharge Activity: Resume usual activity Patient Instructions: Prednisone (By mouth) (predniSONE Intensol, Prednicot, Deltasone, Parrish), Levofloxacin (By mouth) (Levaquin, Levaquin Leva-pennie) Activity Restrictions/Additional Instructions: - Please take antibiotics as prescribed -Please take steroids as prescribed Discharge Attestations Time Spent in Discharge Care*: greater than 30 min Status at Discharge: Cognitive status at discharge: cognitively intact , Behavioral status at discharge: cooperative , Quality Metrics Clinical Quality Measures [ No reported AMI, CVA or VTE this stay] Coding Level of Care Code 02145 Total time (in minutes) for Discharge: 45 Diagnoses CAD (coronary artery disease) I25.10 Chronic back pain M54.9; G89.29 Chronic obstructive pulmonary disease J44.9 Left lower lobe pulmonary infiltrate R91.8 Chronic hypercapnic respiratory failure J96.12 Acute exacerbation of chronic obstructive airways disease J44.1 Acute respiratory failure with hypoxia and hypercapnia J96.01; J96.02 Generalized anxiety disorder F41.1 Schizoaffective disorder, depressive type F25.1 Chest pain R07.9 Severe protein-calorie malnutrition E43 Body mass index (BMI) less than 16.5 Z68.1 Physical deconditioning R53.81 Muscle wasting M62.50 Protein calorie malnutrition E46 Healthcare-associated pneumonia J18.9
--- NOTE | 2024-02-21 13:17 | PC.NURSE ---
Patient is discharged via a wheelchair to private car with . Patient has his own oxygen tank, he is leaving on 4L. All belongings are sent with patient.
--- NOTE | 2024-02-21 17:30 | PC.NURSE ---
Patient was given 1mg of morphine that is documented in the MAR. Nursing was unable to waste the 3mg that were left in the vial due to discharge. Unable to bring patient back up in [place] to waste. Fernando, pharmacist witnessed nursing staff waste the 3mg of morphine.
== END 2024-02-21 13:16 | disposition hospice, home (50) | DRG 193 ==
LOC: MEDSURG 02-17 09:40 → CSU 02-18 14:12
PROVIDERS: Admitting Provider Internal Medicine; PCP Nurse Practitioner Family; Visit Provider Family Medicine
DX: J18.9 Pneumonia, unspecified organism (principal); E43 Unspecified severe protein-calorie malnutrition; J96.22 Acute and chronic respiratory failure with hypercapnia; J96.21 Acute and chronic respiratory failure with hypoxia; J44.0 Chronic obstructive pulmonary disease with (acute) lower respiratory infection; Z68.1 Body mass index [BMI] 19.9 or less, adult; J43.9 Emphysema, unspecified; Z99.81 Dependence on supplemental oxygen; Z87.891 Personal history of nicotine dependence; Y95 Nosocomial condition; J20.9 Acute bronchitis, unspecified; F41.1 Generalized anxiety disorder; I25.10 Atherosclerotic heart disease of native coronary artery without angina pectoris; M19.90 Unspecified osteoarthritis, unspecified site; I10 Essential (primary) hypertension; F25.1 Schizoaffective disorder, depressive type; Z66 Do not resuscitate; G89.29 Other chronic pain; M54.9 Dorsalgia, unspecified; Z99.3 Dependence on wheelchair; M62.50 Muscle wasting and atrophy, not elsewhere classified, unspecified site
CPT/HCPCS: 36415; 51702; 71275; 80048; 80051; 80053; 80202; 82330; 82805; 83605; 83735; 83880; 84100; 84145; 84484; 85025; 85378; 87040; 87486; 87581; 87633; 93005; 93306; 94640; 94660; 96372; 96376; C9113; J0456; J0696; J1644; J2270; J2543; J2919; J3370; J7030; J7050; J7626; Q9967